=== PATIENT | female | born 1945 | race Caucasian/White ===

== ENCOUNTER → 2018-01-27 13:56 | Outpatient (CLI) | payer MEDICARE, OTHER, SELFPAY ==
--- NOTE | 2018-01-27 | DI.RAD.S_ITS ---
PROCEDURE: XR CHEST 2V INDICATIONS: ACUTE BRONCHITIS TECHNIQUE: 2 views of the chest were acquired. COMPARISON: [facility], CHEST 1 VIEW, 12/10/2010, 11:22. [facility], CHEST 2 VIEW, 12/10/2010, 12:08. FINDINGS: Surgical changes and devices: None. Lungs and pleura: No pleural effusions or pneumothorax. Lungs are clear. Mediastinum: The cardiac contours are within normal limits. The aorta demonstrates calcification and tortuosity. Bones and chest wall: Age-appropriate bony degenerative changes are seen. No suspicious bony abnormalities. Soft tissues appear unremarkable. IMPRESSION: No focal infiltrates are seen. Dictated by: Naeem Boyer M.D. on 01/27/2018 at 13:55 Approved by: Naeem Boyer M.D. on 01/27/2018 at 13:55
== END ==
PROVIDERS: PCP Internal Medicine; Visit Provider Internal Medicine
DX: J20.9 Acute bronchitis, unspecified (principal)
CPT/HCPCS: 71046

== ENCOUNTER 2018-04-21 08:49 | Day surgery (SDC) | payer MEDICARE, OTHER, SELFPAY ==
[2018-04-21] VITALS (8 sets, daily range): BP systolic 106–131; BP diastolic 48–66; PULSE 50–60; RESP 10–20; TEMP 36.1–36.7; O2SAT 92–100; BMI 33.6
[2018-04-21] MEDS: SODIUM CHLORIDE 0.9% 1,000 ML 42 ML IV (09:30)
--- NOTE | 2018-04-21 09:45 | PM.HP.1 ---
History of Present Illness Date Patient Seen: 04/14/18 Time Patient Seen: 09:46 Chief complaint: [id number] Narrative: History of adenomatous colon polyps Patient History Medical History Hypertension (Acute) Family & Social History Social History: household members spouse Meds Home Medications Medication Instructions Recorded Confirmed Type ASPIRIN (#ECOTRIN ADULT LOW 81 mg PO QDAY #0 12/10/10 04/21/18 History STRENGTH) CHOLECALCIFEROL (VITAMIN D3) 3,000 u PO QDAY #0 12/10/10 History (Vitamin D) losartan-hydrochlorothiazide #0 12/10/10 History [Hyzaar] Allergies Allergy/AdvReac Type Severity Reaction Status Date / Time Penicillins [PENICILLINS] Allergy Severe family Verified 04/21/18 09:11 history of severe reactions epinephrine [EPINEPHRINE] Allergy Unknown heart Verified 04/21/18 09:11 races, anxiety Exam Vital Signs (past 8 hours): - 04/21/18 09:14 Temperature 97.1 F L Pulse Rate 60 Respiratory Rate 16 Blood Pressure 131/66 Pulse Oximetry 97 Oxygen Delivery Method Room Air Narrative Exam Narrative: Oropharynx free of lesions Chest clear to auscultation percussion Cardiac exam reveals no S3 or murmur Assessment & Plan Plan: Assessment/Plan Narrative: History of adenomatous colon polyps. Need for follow-up colonoscopy. Risks, benefits, alternatives have been explained.
--- NOTE | 2018-04-21 09:47 | PM.OP.ENDO ---
Operative Date/Time/Diagnoses Date of procedure: 04/21/18 Time of procedure: 09:47 Pre-op diagnosis: See indication and findings Procedure & Clinicians Study performed: Colonoscopy Same procedure as scheduled: Yes Indications: History of adenomatous colon polyps Surgeon: Ruby Garcia Procedure Notes Procedure in detail: After informed consent was obtained the patient was placed in the left lateral decubitus position. The video colonoscope was introduced in the rectum and slowly advanced to the cecum. On slow withdrawal mucosa was carefully examined. Preparation was good. The scope was removed. The patient tolerated the procedure well. Blood loss none Complications none Sedation Total sedation time 40 min Versed 8 mg fentanyl 200 mcg IV titration Findings 1. Extremely tortuous colon 2. Otherwise completely normal colonoscopy to cecum Patient will need follow-up colonoscopy in 5 years. I would suggest that it be done with anesthesia assistance next time. Cc: Dr. Anna seymour
[2018-04-21] MEDS: MIDAZOLAM 5 MG/5 ML VIAL IV (10:49)
[2018-04-21] MEDS: fentaNYL 250 MCG/5 ML INJ IV (10:51)
== END 2018-04-21 11:40 | disposition home or self-care (01) ==
PROVIDERS: PCP Internal Medicine; Visit Provider Internal Medicine Gastroenterology
PROC: 0DJD8ZZ Inspection of Lower Intestinal Tract, Via Natural or Artificial Opening Endoscopic (ICD-10-PCS; CPT 45378; principal; 2018-04-21 10:30)
DX: Z86.010 Personal history of colon polyps (principal); I10 Essential (primary) hypertension
CPT/HCPCS: G0105; J2250; J3010

== ENCOUNTER → 2018-06-28 07:46 | Outpatient (CLI) | payer MEDICARE, OTHER, SELFPAY ==
--- NOTE | 2018-06-28 | DI.MG.S_ITS ---
BILATERAL DIGITAL SCREENING MAMMOGRAM 3D/2D WITH CAD: 06/28/2018 CLINICAL: Routine screening. Comparison is made to exams dated: 04/02/2017 mammogram, 02/19/2016 mammogram, 02/16/2015 mammogram, and 02/15/2014 mammogram - [facility]. The tissue of both breasts is extremely dense, which lowers the sensitivity of mammography. Current study was also evaluated with a Computer Aided Detection (CAD) system. There are benign post operative findings in both breasts. No significant masses, calcifications, or other findings are seen in either breast. There has been no significant interval change. IMPRESSION: There is no mammographic evidence of malignancy. A 1 year screening mammogram is recommended. This exam was interpreted at Station ID: [id number]. NOTE: For mammograms, a report in lay terms will be sent to the patient. Approximately 15% of breast malignancies will not be visualized mammographically. In the management of a palpable breast mass, a negative mammogram must not discourage biopsy of a clinically suspicious lesion. Electronically Signed By: Ciaran pina/janna:06/28/2018 17:03:52 letter sent: Normal Exam ACR BI-RADS Category 2: Benign Finding(s) 3342F
== END ==
PROVIDERS: PCP Internal Medicine; Visit Provider Internal Medicine
DX: Z12.31 Encounter for screening mammogram for malignant neoplasm of breast (principal)
CPT/HCPCS: 77063; 77067

== ENCOUNTER → 2019-05-11 15:05 | Outpatient (ROUT) | payer MEDICARE, OTHER, SELFPAY ==
[2019-05-11 15:30] LABS: Add Manual Diff / Slide Review NO; Basophils Absolute Auto 200 /uL (0-100); Eosinophils Absolute Auto 200 /uL (0-450); Eosinophils Percent Auto 1.4 % (2-4); Hematocrit 35.3 % (36-46); Hemoglobin 11.3 g/dL (12.0-16.0); Lymphocytes Absolute Auto 8700 /uL (1100-4500); Lymphocytes Percent Auto 53.8 % (25-40); Mean Corpuscular HGB Conc 32.1 % (30-36); Mean Corpuscular Hemoglobin 23.1 PG (26-34); Mean Corpuscular Volume 72.1 fL (80-100); Monocytes Absolute Auto 600 /uL (0-900); Monocytes Percent Auto 3.6 % (3-14); Neutrophils Absolute Auto 6500 /uL (1500-7000); Neutrophils Percent Auto 40.2 % (50-75); Platelet Count 273 X10^3/uL (150-400); Red Cell Distribution Width 15.1 % (11.6-14.8); White Blood Cell Count 16.2 X10^3/uL (4.5-11.0)
[2019-05-11 15:59] LABS: Aspartate Aminotransferase 27 IU/L (14-36); BUN Creatinine Ratio 23.8 (6-22); Blood Urea Nitrogen 19 mg/dL (7-17); Carbon Dioxide 27 mmol/L (22-32); Chloride 100 mmol/L (98-107); Cholesterol 219 mg/dL (140-199); Estimated Glomerular Filt Rate > 60.0 mL/min (>60); Glucose 94 mg/dL (80-110); HDL Cholesterol 50 mg/dL (40-60); HEMOLYSIS 37 (0-50); LDL Cholesterol Calculated 133 mg/dL (<100); Potassium 4.1 mmol/L (3.4-5.1); Sodium 137 mmol/L (137-145); Triglycerides 182 mg/dL (35-150)
== END ==
PROVIDERS: PCP Internal Medicine; Visit Provider Internal Medicine
DX: I10 Essential (primary) hypertension (principal); E78.2 Mixed hyperlipidemia; D56.0 Alpha thalassemia
CPT/HCPCS: 80048; 80061; 84450; 85025

== ENCOUNTER → 2020-02-15 11:31 | Outpatient (CLI) | payer MEDICARE, OTHER, SELFPAY ==
--- NOTE | 2020-02-15 | DI.MG.S_ITS ---
BILATERAL DIGITAL SCREENING MAMMOGRAM 3D/2D WITH CAD: 02/15/2020 CLINICAL: Routine screening. Family history of breast cancer. Comparison is made to exams dated: 06/28/2018 mammogram - [facility], 04/02/2017 mammogram, and 02/19/2016 mammogram - [facility]. The tissue of both breasts is extremely dense, which lowers the sensitivity of mammography. Current study was also evaluated with a Computer Aided Detection (CAD) system. There is architectural distortion and a post-surgical scar in the right breast at 11 o'clock middle depth. There is a questionable mass in the operative bed on the lateral view. No other significant masses, calcifications, or other findings are seen in either breast. IMPRESSION: INCOMPLETE: NEEDS ADDITIONAL IMAGING EVALUATION The mass in the right breast is indeterminate. Additional views with possible ultrasound are recommended. This exam was interpreted at Station ID: [id number]. NOTE: For mammograms, a report in lay terms will be sent to the patient. Approximately 15% of breast malignancies will not be visualized mammographically. In the management of a palpable breast mass, a negative mammogram must not discourage biopsy of a clinically suspicious lesion. Electronically Signed By: Lis baker/:02/15/2020 13:50:01 letter sent: Additional Imaging Needed ACR BI-RADS Category 0: Incomplete [id number]
== END ==
PROVIDERS: PCP Internal Medicine; Referring Provider Internal Medicine; Visit Provider Internal Medicine
DX: Z12.31 Encounter for screening mammogram for malignant neoplasm of breast (principal); Z80.3 Family history of malignant neoplasm of breast
CPT/HCPCS: 77063; 77067

== ENCOUNTER → 2020-03-08 08:19 | Outpatient (CLI) | payer MEDICARE, OTHER, SELFPAY ==
--- NOTE | 2020-03-08 | DI.MG.S_ITS ---
UNILATERAL RIGHT DIGITAL DIAGNOSTIC MAMMOGRAM 3D/2D WITH ADDITIONAL VIEWS: 03/08/2020 CLINICAL: Additional evaluation requested from prior study. Comparison is made to exams dated: 02/15/2020 mammogram, 06/28/2018 mammogram - [facility], and 04/02/2017 mammogram - [facility]. The tissue of right breast is extremely dense, which lowers the sensitivity of mammography. There is a 1.1 cm x 1.8 cm irregular mass with a spiculated margin in the right breast at 11 o'clock middle depth. This is seen in additional views. There is architectural distortion and a post-surgical scar associated with the mass. No other significant masses or calcifications are seen in the breast. IMPRESSION: INCOMPLETE: NEEDS ADDITIONAL IMAGING EVALUATION The 1.1 cm x 1.8 cm irregular mass in the right breast is indeterminate. An ultrasound is recommended. US will be performed and dictated separately. This exam was interpreted at Station ID: [id number]. NOTE: For mammograms, a report in lay terms will be sent to the patient. Approximately 15% of breast malignancies will not be visualized mammographically. In the management of a palpable breast mass, a negative mammogram must not discourage biopsy of a clinically suspicious lesion. Electronically Signed By: Jasper Vargas acr/:03/08/2020 09:13:23 ACR BI-RADS Category 0: Incomplete [id number]
--- NOTE | 2020-03-08 09:42 | DI.US.S_ITS ---
Patient Name: MONICA LEVINE date: 1945 Sex: F Attending Physician: Verena Indications: Date: 03/08/2020 09:40 At the request of: JENIFFER GRIFFITHS Procedure: US breast RT limited ULTRASOUND OF RIGHT BREAST: 03/08/2020 CLINICAL: Patient returns today to evaluate a focal asymmetry in the right breast. Comparison is made to exams dated: 02/15/2020 mammogram, 03/08/2020 mammogram, 06/28/2018 mammogram - [facility], 04/02/2017 mammogram, 02/19/2016 mammogram, and 02/16/2015 mammogram - [facility]. Color flow and Doppler ultrasound of the right breast were performed. There is a 1.3 cm mass with a spiculated margin in the right breast at 3 o'clock posterior depth 7 cm from the nipple. This mass displays posterior acoustic shadowing. IMPRESSION: HIGHLY SUGGESTIVE OF MALIGNANCY The 1.3 cm mass in the right breast is highly suggestive of malignancy. Recommend US guided biopsy This exam was interpreted at Station ID: [id number]. Electronically Signed By: Jasper Vargas acr/:03/09/2020 08:48:25 letter sent: Biopsy Required Ultrasound BI-RADS: 5 Highly suggestive of malignancy
== END ==
PROVIDERS: PCP Internal Medicine; Referring Provider Internal Medicine; Visit Provider Internal Medicine
DX: R92.8 Other abnormal and inconclusive findings on diagnostic imaging of breast (principal); N63.11 Unspecified lump in the right breast, upper outer quadrant
CPT/HCPCS: 76642; 77065; G0279

== ENCOUNTER → 2020-03-23 13:03 | Outpatient (CLI) | payer MEDICARE, OTHER, SELFPAY ==
--- NOTE | 2020-03-23 | DI.MG.S_ITS ---
UNILATERAL RIGHT DIGITAL DIAGNOSTIC MAMMOGRAM POST-NEEDLE BIOPSY: 03/23/2020 CLINICAL: Abnormal Mammogram. Comparison is made to exams dated: 03/08/2020 mammogram, 02/15/2020 mammogram, and 06/28/2018 mammogram - [facility]. The tissue of right breast is extremely dense, which lowers the sensitivity of mammography. There is a biopsy clip at the biopsy site in the right breast. IMPRESSION: The biopsy clip is at the biopsy site in the right breast. This exam was interpreted at Station ID: [id number]. NOTE: For mammograms, a report in lay terms will be sent to the patient. Approximately 15% of breast malignancies will not be visualized mammographically. In the management of a palpable breast mass, a negative mammogram must not discourage biopsy of a clinically suspicious lesion. Electronically Signed By: Jeanne Reyes M.D. fx/:03/23/2020 14:30:55 ACR BI-RADS Category n/a
--- NOTE | 2020-03-23 | PATH_ITS ---
[facility] Accession Number: [id number] . 01 Material submitted: . breast - RIGHT BREAST MASS . 01 Diagnosis: Right Breast Mass, Partial Mastectomy: Fibrocystic changes including focal usual duct hyperplasia, duct dilation and stromal sclerosis. No evidence of atypical duct hyperplasia, in-situ and invasive carcinoma. [facility] 03/29/2020 1648 Local . 01 Comment: As part of ongoing supplier quality specialist, this case is also reviewed by Dr. Myrtle Gillis, who concurs with the given interpretation. . 01 Electronically signed: . Jordyn Aguilar MD, Pathologist NPI- [id number] . 01 Gross description: . Received in formalin, labeled with the patient's name, are multiple pieces of lora adipose tissue ranging in size from 2.0 x 0.3 x 0.3 cm to 0.3 x 0.3 x 0.2 cm. All tissue is entirely submitted in cassette A1. Collection date and time are listed as 03/23/20 at 14:24, for a total fixation time after processing of approximately 30 hours. ([id number]) /FRR 03/24/2020 1533 Local . 01 Microscopic: . A focus of mildly atypical glands is identified. This focus is evaluated by immunostains. A p63 and a myosin immunostain is performed which highlights the myoepithelial cell layer around the glands of interest and hence support the benign nature of the glands. Control stained appropriately. . * This test was developed and its performance characteristics determined by [employer]. It has not been cleared or approved by the U.S. Food and Drug Administration. The FDA has determined that such clearance or approval is not necessary. This test is used for clinical purposes. It should not be regarded as investigational or for research. . 01 Pathologist provided ICD-10: N63.10, N60.91 . 01 CPT . 381910, U87883, H39768 Performed at: [address] [facility] [address], [place], [place] [id number] MD Haim Michele MD Phone: [phone]
--- NOTE | 2020-03-23 | DI.US.S_ITS ---
ULTRASOUND GUIDED BIOPSY RIGHT BREAST USING VACUUM DEVICE WITH POST MAMMOGRAPHIC AND ULTRASOUND IMAGIN03/23/2020 PATIENT CONSENT: Risks (minor bleeding, infection, vasovagal reaction and repeat procedure), benefits and alternatives were explained to the patient and written informed consent was obtained. Correlation is made to exams dated: 03/08/2020 ultrasound, 03/08/2020 mammogram, 02/15/2020 mammogram, 06/28/2018 mammogram - [facility], and 04/02/2017 mammogram - [facility]. An ultrasound guided biopsy using real-time ultrasound was performed for the oval mass located in the right breast at 11 o'clock middle depth. This was described on the previous ultrasound report. The skin was prepped in the usual manner. Local anesthetic was administered to the access site. The abnormality was approached from the lateral aspect. A 13 gauge biopsy needle was placed adjacent to the abnormality under ultrasound guidance. Once the needle was documented to be in the correct location, six specimens were obtained using the Mammotome biopsy system. Post procedure mammographic and ultrasound imaging demonstrates the clip at the targeted area. The specimens were sent to the laboratory for pathological analysis. IMPRESSION: ULTRASOUND GUIDED BIOPSY BENIGN Ultrasound guided biopsy of the mass in the right breast middle depth was successful. Pathology indicates benign fibrocystic changes (FC). Pathology results are discordant with ultrasound findings. A repeat ultrasound guided biopsy is recommended. This exam was interpreted at Station ID: [id number]. Jeanne brady,ddp/:04/03/2020 17:17:48
== END ==
PROVIDERS: PCP Internal Medicine; Referring Provider Internal Medicine; Visit Provider Internal Medicine
DX: N63.11 Unspecified lump in the right breast, upper outer quadrant (principal); N60.11 Diffuse cystic mastopathy of right breast; N60.41 Mammary duct ectasia of right breast
CPT/HCPCS: 19083; 77065

== ENCOUNTER 2020-06-04 16:44 | Emergency (ER) | payer MEDICARE, OTHER, SELFPAY ==
[2020-06-04] VITALS (8 sets, daily range): BP systolic 91–140; BP diastolic 52–67; PULSE 67–79; RESP 12–25; TEMP 37.1; O2SAT 91–97
--- NOTE | 2020-06-04 17:14 | DI.RAD.S_ITS ---
PROCEDURE: XR CHEST 1V INDICATIONS: suspected sepsis TECHNIQUE: One view of the chest was acquired. COMPARISON: Located [facility], CR, XR CHEST 2V, 01/27/2018, 13:44. FINDINGS: Surgical changes and devices: None. Lungs and pleura: Lungs are clear. No pleural effusions or pneumothorax. Mediastinum: Mediastinal contours appear normal. Heart size is normal. Bones and chest wall: No suspicious bony lesions. Overlying soft tissues appear unremarkable. IMPRESSION: No evidence acute pulmonary process. Dictated by: Alden Son M.D. on 06/04/2020 at 17:40 Approved by: Alden Son M.D. on 06/04/2020 at 17:40
[2020-06-04 17:39] LABS: Hematocrit 32.9 % (36-46); Hemoglobin 10.4 g/dL (12.0-16.0); Mean Corpuscular HGB Conc 31.6 % (30-36); Mean Corpuscular Hemoglobin 22.9 PG (26-34); Mean Corpuscular Volume 72.5 fL (80-100); Platelet Count 281 X10^3/uL (150-400); Red Blood Cell Count 4.55 X10^6/uL (4.0-5.2)
[2020-06-04 17:41] LABS: Add Manual Diff / Slide Review YES
[2020-06-04 17:42] LABS: White Blood Cell Count 32.9 X10^3/uL (4.5-11.0)
[2020-06-04 17:48] LABS: PTT Partial Thromboplastin Tim 31 SECONDS (26.4-36.2)
[2020-06-04 17:51] LABS: Lactate (Lactic Acid) 1.1 mmol/L (0.7-2.1)
[2020-06-04 17:55] LABS: Alanine Aminotransferase 16 IU/L (<35); Albumin 4.1 g/dL (3.5-5.0); Albumin Globulin Ratio 1.6 (1.0-2.8); Alkaline Phosphatase 122 U/L (38-126); Aspartate Aminotransferase 23 IU/L (14-36); BUN Creatinine Ratio 23.8 (6-22); Bilirubin Total 0.8 mg/dL (0.2-1.3); Blood Urea Nitrogen 19 mg/dL (7-17); Calcium 9.4 mg/dL (8.4-10.2); Carbon Dioxide 29 mmol/L (22-32); Chloride 101 mmol/L (98-107); Estimated Glomerular Filt Rate > 60.0 mL/min (>60); Globulin 2.6 g/dL (1.7-4.1); Glucose 110 mg/dL (80-110); HEMOLYSIS < 15 (0-50); Lipase 57 U/L (23-300); Potassium 3.5 mmol/L (3.4-5.1); Sodium 135 mmol/L (137-145); Total Protein 6.7 g/dL (6.3-8.2)
[2020-06-04] MEDS: SODIUM CHLORIDE 0.9% 1,000 ML 1000 ML IV (18:10)
--- NOTE | 2020-06-04 18:10 | ED.FEVER ---
HPI - Fever General Chief Complaint: Fever Stated Complaint: Breast Surgery, Swelling On Right Arm, Fever Time Seen by Provider: 06/04/20 18:10 Source: patient and family () Mode of arrival: Ambulatory Limitations: no limitations History of Present Illness HPI Narrative: This is a 75-year-old female comes emergency department a week status post lumpectomy for breast cancer and sentinel node biopsy her right breast at [facility]. Patient states she was doing well until yesterday. She started feeling chilled and feverish overnight. She had sweats overnight and developed pain in her right upper extremity. She describes the area the lower humerus adjacent to the elbow. She describes some redness. She has full range of motion with the elbow but has pain if she touches that area. Patient states she has had a little tingling in her fingers. She states she has had ibuprofen this morning as well as 1:00 p.m. today, she had temperature of a 100.2F. She has had a mild headache, she denies neck pain. She states her incisions team to be healing well she has not appreciate any drainage or foul odor. Patient denies any other new chest pain or pressure. No shortness of breath she denies any nausea, no vomiting, no urinary frequency, dysuria or urgency, no diarrhea constipation. She denies any abdominal pain. Patient states that she takes a single medication for hypertension. She states in the past she has had a total abdominal hysterectomy with bilateral salpingo oophorectomy secondary to suspected cancer although pathology at that time was negative. She is accompanied by her . Related Data Home Medications Medication Instructions Recorded Confirmed ASPIRIN (#ECOTRIN ADULT LOW 81 mg PO QDAY #0 12/10/10 04/17/20 STRENGTH) CHOLECALCIFEROL (VITAMIN D3) 3,000 u PO QDAY #0 12/10/10 04/17/20 (Vitamin D) losartan-hydrochlorothiazide #0 12/10/10 04/17/20 [Hyzaar] ibuprofen 06/04/20 Previous Rx's Medication Instructions Recorded cephalexin [Keflex] 500 mg PO QID #40 cap 06/04/20 Allergies Allergy/AdvReac Type Severity Reaction Status Date / Time latex Allergy Mild Rash Verified 06/04/20 17:05 Penicillins [PENICILLINS] AdvReac Severe family Verified 06/04/20 17:05 history of severe reactions epinephrine [EPINEPHRINE] AdvReac Unknown heart Verified 06/04/20 17:05 races, anxiety Review of Systems Review of Systems ROS Unobtainable: All systems reviewed & are unremarkable except as noted in HPI and below Patient History Medical History Anemia Hypertension Surgical History H/O lumpectomy Family History Mother Hypertension Heart disease Cancer Diabetes mellitus Father Hypertension Sister Cancer Social History household members: spouse Smoking Status: Never smoker Smoking Status: Never smoker alcohol intake frequency: holidays/special occasions only Substance Use Type: does not use Exam Narrative Exam Narrative: GENERAL: Alert and oriented x three, well-nourished female in mild distress. HEENT: Head normocephalic, atraumatic, EOMI, pupils reactive, face symmetric, moist mucous membranes NECK: Supple, full range of motion CARDIOVASCULAR: Regular rate and rhythm without murmurs, rubs or gallops. RESPIRATORY: Breath sounds equal bilaterally, no wheezes rales or rhonchi. ABDOMEN: Soft, nontender. Normoactive bowel sounds all 4 quadrants. No guarding or rebound, rigidity, no mass : No CVA tenderness EXTREMITIES: Normal range of motion, no clubbing, mild edema rate appears to be left. 2+ radial pulse. Full range of motion. Patient is mildly tender on her proximal humerus on the extensor side. I do not appreciate any significant erythema although there may be some mildly present. Neurovascularly intact. NEUROLOGICAL: Cranial nerves II through XII grossly intact. Moving all extremities SKIN: Warm, dry, no petechiae, no rashes or lesions. Patient has incision on her right breast at the 7 o'clock position which looks clean dry and intact and healing well, she also has an incision in her right axilla which is may also clean dry and intact with some mild swelling but no erythema or other skin changes noted. Initial Vital Signs Initial Vital Signs: Vital Signs Temperature 98.8 F 06/04/20 17:00 Pulse Rate 79 06/04/20 17:00 Respiratory Rate 16 06/04/20 17:00 Blood Pressure 140/67 06/04/20 17:00 Pulse Oximetry 96 06/04/20 17:00 Scores qSOFA Altered Mental Status (GCS <15): No Respiratory rate greater than/equal to 22: No Systolic blood pressure less than or equal to 100: No qSOFA Total: 0 0-1 Not High Risk 1-3 High risk Course Orders Ordered: ED Orders 06/04/20 19:30 Urinalysis and Microscopic Stat 06/04/20 19:47 CT angio chest PE protocol Stat Discontinued Medications Cefazolin Sodium (Cephalexin 250 Mg Prepack) 1 bottle MISC SEEINSTR ONE Stop: 06/04/20 23:15 Last Admin: 06/04/20 23:26 Dose: 1 bottle Documented by: FELIPE Sodium Chloride (Normal Saline 0.9%) 1,000 mls @ 1,000 mls/hr IV BOLUS ONE Stop: 06/04/20 18:12 Last Infusion: 06/04/20 19:37 Dose: 0 mls/hr Documented by: Admin: 06/04/20 18:10 Dose: 1,000 mls/hr Documented by: BROOKLYNN Vancomycin HCl/Dextrose (Vancomycin) 1,500 mg in 300 mls @ 200 mls/hr IV NOW ONE Stop: 06/04/20 19:57 Last Infusion: 06/04/20 22:00 Dose: 0 mls/hr Documented by: Admin: 06/04/20 19:22 Dose: 200 mls/hr Documented by: ALIYAH Esqueda Consultation #1: Dr. Walters. Follow up tomorrow at noon for recheck. Pathology pending but should be finalized in the morning. Surgeon suspect this may be related. Plan for keflex 500mg po QID with office visit tomorrow around noon. They will reach out to the patient. If appears septic or worsening recontact. Time: 23:03 Vital Signs Vital signs: Vital Signs - 8 hr 06/04/20 20:00 06/04/20 20:30 06/04/20 20:37 Pulse Rate 71 70 67 Respiratory Rate 23 25 H 12 Blood Pressure 122/55 L 91/52 L Pulse Oximetry 96 95 91 06/04/20 22:52 06/04/20 22:56 06/04/20 23:00 Pulse Rate 71 71 69 Respiratory Rate 24 25 H 24 Blood Pressure 120/59 L 122/60 Pulse Oximetry 91 93 92 MDM - Fever Lab Data Attestation: I reviewed the patient's lab results. Result diagrams: 06/04/20 17:28 06/04/20 17:28 Labs: Lab Results 06/04/20 06/04/20 06/04/20 Range/Units 17:28 17:28 17:28 WBC 32.9 H* (4.5-11.0) X10^3/uL RBC 4.55 (4.0-5.2) X10^6/uL Hgb 10.4 L (12.0-16.0) g/dL Hct 32.9 L (36-46) % MCV 72.5 L (80-100) fL MCH 22.9 L (26-34) PG MCHC 31.6 (30-36) % RDW 15.0 H (11.6-14.8) % Plt Count 281 (150-400) X10^3/uL Neut % (Auto) Not Reportable Lymph % (Auto) Not Reportable Beckham % (Auto) Not Reportable Eos % (Auto) Not Reportable Baso % (Auto) Not Reportable Lymph # (Auto) Not Reportable Beckham # (Auto) Not Reportable Baso # (Auto) Not Reportable Total Counted 100 Seg Neutrophils % 61.0 (38-70) % Band Neutrophils % 3.0 (3-7) % Lymphocytes % (Manual) 32.0 (25-45) % Monocytes % (Manual) 4.0 (2-11) % Neutrophils # (Manual) 44832 H (0234-5369) /uL RBC Morphology Not Reportable Hypochromasia 1+ H Microcytosis 1+ H PT 12.0 (10.1-12.7) SECONDS INR 1.0 (0.9-1.3) APTT 31 (26.4-36.2) SECONDS Sodium 135 L (137-145) mmol/L Potassium 3.5 (3.4-5.1) mmol/L Chloride 101 (98-107) mmol/L Carbon Dioxide 29 (22-32) mmol/L BUN 19 H (7-17) mg/dL Creatinine 0.80 (0.52-1.04) mg/dL Estimated GFR > 60.0 (>60) mL/min BUN/Creatinine Ratio 23.8 H (6-22) Glucose 110 (80-110) mg/dL Lactate (0.7-2.1) mmol/L Calcium 9.4 (8.4-10.2) mg/dL Total Bilirubin 0.8 (0.2-1.3) mg/dL AST 23 (14-36) IU/L ALT 16 (<35) IU/L Alkaline Phosphatase 122 (38-126) U/L Total Protein 6.7 (6.3-8.2) g/dL Albumin 4.1 (3.5-5.0) g/dL Globulin 2.6 (1.7-4.1) g/dL Albumin/Globulin Ratio 1.6 (1.0-2.8) Lipase 57 (23-300) U/L Procalcitonin 0.10 (<0.5) ng/mL Urine Color Urine Appearance Urine pH (4.5-8.0) Ur Specific [place] (1.000-1.035) Urine Protein (Negative) Urine Glucose (UA) (Negative) g/dL Urine Ketones (NEGATIVE) Urine Occult Blood (Negative) Urine Nitrate (Negative) Urine Bilirubin (NEGATIVE) Urine Urobilinogen (0.2) E.U./dL Ur Leukocyte Esterase (NEGATIVE) Urine RBC (0-5/HPF) Urine WBC (0-5/HPF) Ur Squamous Epith Cells (0-5/HPF) Urine Bacteria (None) Ur Culture Indicated? SARS-CoV-2 (PCR) (Negative) 06/04/20 06/04/20 06/04/20 Range/Units 17:28 18:00 19:30 WBC (4.5-11.0) X10^3/uL RBC (4.0-5.2) X10^6/uL Hgb (12.0-16.0) g/dL Hct (36-46) % MCV (80-100) fL MCH (26-34) PG MCHC (30-36) % RDW (11.6-14.8) % Plt Count (150-400) X10^3/uL Neut % (Auto) Lymph % (Auto) Beckham % (Auto) Eos % (Auto) Baso % (Auto) Lymph # (Auto) Beckham # (Auto) Baso # (Auto) Total Counted Seg Neutrophils % (38-70) % Band Neutrophils % (3-7) % Lymphocytes % (Manual) (25-45) % Monocytes % (Manual) (2-11) % Neutrophils # (Manual) (0210-0662) /uL RBC Morphology Hypochromasia Microcytosis PT (10.1-12.7) SECONDS INR (0.9-1.3) APTT (26.4-36.2) SECONDS Sodium (137-145) mmol/L Potassium (3.4-5.1) mmol/L Chloride (98-107) mmol/L Carbon Dioxide (22-32) mmol/L BUN (7-17) mg/dL Creatinine (0.52-1.04) mg/dL Estimated GFR (>60) mL/min BUN/Creatinine Ratio (6-22) Glucose (80-110) mg/dL Lactate 1.1 (0.7-2.1) mmol/L Calcium (8.4-10.2) mg/dL Total Bilirubin (0.2-1.3) mg/dL AST (14-36) IU/L ALT (<35) IU/L Alkaline Phosphatase (38-126) U/L Total Protein (6.3-8.2) g/dL Albumin (3.5-5.0) g/dL Globulin (1.7-4.1) g/dL Albumin/Globulin Ratio (1.0-2.8) Lipase (23-300) U/L Procalcitonin (<0.5) ng/mL Urine Color Yellow Urine Appearance Clear Urine pH 5.5 (4.5-8.0) Ur Specific [place] <=1.005 (1.000-1.035) Urine Protein Negative (Negative) Urine Glucose (UA) Negative (Negative) g/dL Urine Ketones Negative (NEGATIVE) Urine Occult Blood Negative (Negative) Urine Nitrate Negative (Negative) Urine Bilirubin Negative (NEGATIVE) Urine Urobilinogen 0.2 (0.2) E.U./dL Ur Leukocyte Esterase Negative (NEGATIVE) Urine RBC 0-1/hpf (0-5/HPF) Urine WBC 0-1/hpf (0-5/HPF) Ur Squamous Epith Cells 0-1 /hpf (0-5/HPF) Urine Bacteria None seen (None) Ur Culture Indicated? Cult not indicated SARS-CoV-2 (PCR) Negative (Negative) Imaging Data Chest x-ray: Attestation: I personally reviewed and interpreted this imaging study as follows: Radiologist's Impression: Coco Melissa F 75 F 1945 [address] [id number] ReportSigned Patient: Coco Melissa R#: [id number]: 1945cct:[id number]/Sex: 75 / FDate of Service: 06/04/20Loc: EDAccession Number: [id number] Procedure: XR chest 1V Ordering Provider: Eugene Osorio D.O. PROCEDURE: XR CHEST 1V INDICATIONS: suspected sepsis TECHNIQUE: One view of the chest was acquired. COMPARISON: [facility] , XR CHEST 2V, 01/27/2018, 13:44. FINDINGS: Surgical changes and devices: None. Lungs and pleura: Lungs are clear. No pleural effusions or pneumothorax. Mediastinum: Mediastinal contours appear normal. Heart size is normal. Bones and chest wall: No suspicious bony lesions. Overlying soft tissues appear unremarkable. IMPRESSION: No evidence acute pulmonary process. Dictated by: Alden Son M.D. on 06/04/2020 at 17:40 Approved by: Alden Son M.D. on 06/04/2020 at 17:40 US - DVT: Radiologist's Impression: [address] [id number] ReportSigned Patient: Coco Melissa R#: [id number]: 1945cct:[id number]/Sex: 75 / FDate of Service: 06/04/20Loc: EDAccession Number: [id number] Procedure: US periph venous up extrem rt Ordering Provider: Minoo Samayoa D.O. PROCEDURE: US PERIPH VENOUS UP EXTREM RT INDICATIONS: swelling, redness, pain, fever, s/p lumpectomy TECHNIQUE: Real-time imaging, as well as color and pulse Doppler interrogation, was performed of the right upper extremity deep veins from the inferior neck to the antecubital fossa. COMPARISON: None. FINDINGS: The internal jugular vein, visualized portions of the subclavian vein, axillary, and brachial veins are free of intraluminal thrombus. Where physically possible, the veins are normally compressible. Color and pulse Doppler demonstrate normal intraluminal flow, with expected phasicity and pulsatility. Additional scanning of the cephalic and basilic veins of the superficial system demonstrate normal compressibility, without thrombus. IMPRESSION: No evidence DVT, right upper extremity. Dictated by: Alden Son M.D. on 06/04/2020 at 19:27 Approved by: Alden Son M.D. on 06/04/2020 at 19:28 ECG Data Attestation: I personally reviewed and interpreted this ECG as follows: Interpretation: Sinus rhythm rate of 76 AR 126 QRS 78 QTC 434. Q-wave in lead 3. No elevation appreciated. Possible motion artifact and lateral leads. Patient has prior EKG from 12/11/2010 appears similar. [facility] Narrative Medical decision making narrative: This is a 75 year old female with and left upper extremity pain 1 week status post lumpectomy and sentinel node biopsy. Patient labs show a significant leukocytosis, she does have a leftward shift. Hemoglobin is slightly decreased from last month at 10.4 prior was 11.3. Chemistry show a mild hyponatremia with sodium 135, BUN is 19, normal with a procalcitonin is 0.10 and a negative lactate. And COVID are negative. Patient's DVT ultrasound is negative and CT angiography of the chest was ordered. No PE, patient does have a hematoma noted at the right breast post right lumpectomy and relatively extensive diffuse right axillary hematoma with associated edema. There are extensive bilateral small shotty axillary lymph nodes. This was discussed with the patient's surgeon, she would like to see patient tomorrow at noon. She suspects that this may be to the patient's current pending pathology which has not had its final results. She will discuss this with the patient tomorrow. At this time plan for Keflex 500 mg q.i.d. and patient is to return if any worsening symptoms. Discharge Plan Departure Patient Disposition: Home Clinical Impression: Seroma after procedure Activity Restrictions/Additional Instructions: Follow up with your surgeon tomorrow, they plan to contact you in the morning to have follow up sometime around noon 06/05/20. Take antibiotics as prescribed. You may take your first dose tonight. Return to the ER for recurrent fevers, lightheadedness, passing out, new chest pain, shortness of breath, worsening swelling of your extremities, tingling, weakness or other new or concerning symptoms. Prescriptions: New cephalexin [Keflex] 500 mg capsule 500 mg PO QID Qty: 40 RF: 0 No Action losartan-hydrochlorothiazide [Hyzaar] 100 MG/12.5 MG tablet Qty: 0 RF: 0 CHOLECALCIFEROL (VITAMIN D3) (Vitamin D) 3,000 u PO QDAY Qty: 0 RF: 0 ASPIRIN (#ECOTRIN ADULT LOW STRENGTH) 81 mg PO QDAY Qty: 0 RF: 0 ibuprofen 400 mg tablet RF: 0 Referrals: Bharat Albarado MD [Primary Care Provider] - Maddy Walters MD [Non-Staff] -
[2020-06-04 18:24] LABS: COVID19 -Nasal RAPID Negative (Negative)
[2020-06-04 18:24] LABS: Neutrophils Absolute Manual 21056 /uL (3000-5900); Total Cells Counted 100
[2020-06-04 18:25] LABS: Hypochromasia 1+; Microcytosis 1+
--- NOTE | 2020-06-04 18:28 | DI.US.S_ITS ---
PROCEDURE: US PERIPH VENOUS UP EXTREM RT INDICATIONS: swelling, redness, pain, fever, s/p lumpectomy TECHNIQUE: Real-time imaging, as well as color and pulse Doppler interrogation, was performed of the right upper extremity deep veins from the inferior neck to the antecubital fossa. COMPARISON: None. FINDINGS: The internal jugular vein, visualized portions of the subclavian vein, axillary, and brachial veins are free of intraluminal thrombus. Where physically possible, the veins are normally compressible. Color and pulse Doppler demonstrate normal intraluminal flow, with expected phasicity and pulsatility. Additional scanning of the cephalic and basilic veins of the superficial system demonstrate normal compressibility, without thrombus. IMPRESSION: No evidence DVT, right upper extremity. Dictated by: Alden Son M.D. on 06/04/2020 at 19:27 Approved by: Alden Son M.D. on 06/04/2020 at 19:28
[2020-06-04] MEDS: VANCOMYCIN 1,500 MG/300 ML PIGGYBACK 200 MG IV (19:22)
[2020-06-04 19:36] LABS: Bacteria Urine None Seen
[2020-06-04 19:37] LABS: Appearance Urine UA CLEAR; Bilirubin Urine UA NEGATIVE (NEGATIVE); Color Urine UA YELLOW; Glucose Urine UA NEGATIVE (Negative); Ketones Urine UA NEGATIVE (NEGATIVE); Leukocyte Esterase Urine UA NEGATIVE (NEGATIVE); Nitrite Urine UA NEGATIVE (Negative); Occult Blood Urine UA NEGATIVE (Negative); Protein Urine UA NEGATIVE (Negative); Specific Gravity Urine UA <=1.005 (1.000-1.035); Urobilinogen Urine UA 0.2 E.U./dL (0.2)
[2020-06-04 19:39] LABS: pH Urine UA 5.5 (4.5-8.0)
--- NOTE | 2020-06-04 19:47 | DI.CT.S_ITS ---
PROCEDURE: CT ANGIO CHEST PE PROTOCOL INDICATIONS: redness, swelling arm, recent lumpectomy, fever TECHNIQUE: After the administration of intravenous contrast, 2 mm thick sections acquired from the pulmonary apices to the posterior costophrenic angles. 3-dimensional maximum intensity projection (MIP) coronal and sagittal reformats were then acquired through the thorax. For radiation dose reduction, the following was used: automated exposure control, adjustment of mA and/or kV according to patient size. COMPARISON: None. FINDINGS: Image quality: Excellent. Pulmonary arteries: Pulmonary arteries are normal in size, and demonstrate no intraluminal filling defects to suggest central pulmonary embolism. Lungs and pleura: Lungs are clear. No pleural effusions or pneumothorax. Central and peripheral airways are patent. Mediastinum: Heart size is normal, without pericardial effusion. No mediastinal or hilar adenopathy. Thoracic aorta is normal in caliber and enhancement. Esophagus is normal in caliber, without hiatal hernia. Bones and chest wall: No suspicious bony lesions. There is a diffuse right axillary hematoma with associated edema. Right breast hematoma measuring approximately 4.5 x 2.6 cm. Ribs and thoracic spine appear intact throughout. Thyroid gland is unremarkable as visualized. No axillary or supraclavicular adenopathy. Extensive small shotty bilateral axillary lymph nodes. Abdomen: Visualized upper abdominal solid organs appear normal in the early arterial phase of enhancement. IMPRESSION: 1. No evidence acute pulmonary emboli. 2. No evidence acute pulmonary process. 3. Right breast hematoma post right lumpectomy. 4. Relatively extensive diffuse right axillary hematoma with associated edema. 4. Extensive bilateral small shotty axillary lymph nodes. Dictated by: Alden Son M.D. on 06/04/2020 at 20:41 Approved by: Alden Son M.D. on 06/04/2020 at 20:46
[2020-06-04 19:53] LABS: Culture Indicated Urine Cult Not Indicated; RBC Urine 0-1/HPF (0-5/HPF); Squamous Epithelial Cell Urine 0-1 /HPF (0-5/HPF); WBC Urine 0-1/HPF (0-5/HPF)
[2020-06-04] MEDS: cephALEXin 250 MG PREPACK 1 BOTTLE MISC (23:26)
--- NOTE | 2020-06-04 23:49 | PC.NURSE ---
Keflex rx called into [facility] in [place]
== END 2020-06-04 23:33 | disposition home or self-care (01) ==
PROVIDERS: Emergency Medicine; Emergency Provider Emergency Medicine; PCP Internal Medicine
DX: M96.843 Postprocedural seroma of a musculoskeletal structure following other procedure (principal); M79.601 Pain in right arm; I10 Essential (primary) hypertension; Z20.822 Contact with and (suspected) exposure to COVID-19
CPT/HCPCS: 36415; 71045; 71275; 80053; 81001; 83605; 83690; 84145; 85007; 85025; 85610; 85730; 87040; 87635; 93005; 93971; 96361; 96365; 96366; 99283; 99284; C9803; Q9967

== ENCOUNTER → 2020-10-24 08:38 | Outpatient (CLI) | payer MEDICARE, OTHER, SELFPAY ==
[2020-10-24 10:48] LABS: Vitamin D 25 Hydroxy (D3) 55.2 ng/mL (30.0-100.0)
== END ==
PROVIDERS: PCP Student in an Organized Health Care Education/Training Program; Referring Provider Student in an Organized Health Care Education/Training Program; Visit Provider Student in an Organized Health Care Education/Training Program
DX: E55.9 Vitamin D deficiency, unspecified (principal); Z79.899 Other long term (current) drug therapy
CPT/HCPCS: 36415; 82306

== ENCOUNTER → 2022-01-21 09:06 | Outpatient (CLI) | payer MEDICARE, OTHER, SELFPAY ==
[2022-01-21 12:53] LABS: Cholesterol 217 mg/dL (140-199); HDL Cholesterol 48 mg/dL (40-60); LDL Cholesterol Calculated 138 mg/dL (<100); Triglycerides 155 mg/dL (35-150)
== END ==
PROVIDERS: PCP Family Medicine; Referring Provider Family Medicine; Visit Provider Family Medicine
DX: E66.9 Obesity, unspecified (principal); C50.919 Malignant neoplasm of unspecified site of unspecified female breast; E55.9 Vitamin D deficiency, unspecified; I10 Essential (primary) hypertension; L40.50 Arthropathic psoriasis, unspecified
CPT/HCPCS: 36415; 80061

== ENCOUNTER → 2022-01-24 | Outpatient (CLI) | payer MEDICARE, OTHER, SELFPAY | PROVIDERS: PCP Family Medicine; Referring Provider Family Medicine; Visit Provider Family Medicine | DX: Z78.0 Asymptomatic menopausal state (principal); Z92.23 Personal history of estrogen therapy; Z90.710 Acquired absence of both cervix and uterus; M85.851 Other specified disorders of bone density and structure, right thigh; M85.852 Other specified disorders of bone density and structure, left thigh | CPT/HCPCS: 77080 ==

== ENCOUNTER → 2022-07-18 08:06 | Outpatient (CLI) | payer MEDICARE, OTHER, SELFPAY ==
[2022-07-18 09:33] LABS: Hematocrit 33.9 % (36-46); Hemoglobin 10.6 g/dL (12.0-16.0); Mean Corpuscular HGB Conc 31.2 % (30-36); Mean Corpuscular Hemoglobin 22.8 PG (26-34); Mean Corpuscular Volume 73.2 fL (80-100); Platelet Count 259 X10^3/uL (150-400); Red Blood Cell Count 4.63 X10^6/uL (4.0-5.2); Red Cell Distribution Width 15.5 % (11.6-14.8)
[2022-07-18 09:34] LABS: Add Manual Diff / Slide Review YES
[2022-07-18 09:37] LABS: White Blood Cell Count 37.6 X10^3/uL (4.5-11.0)
[2022-07-18 09:50] LABS: Alanine Aminotransferase 27 IU/L (<35); Albumin 4.3 g/dL (3.5-5.0); Alkaline Phosphatase 92 U/L (38-126); Aspartate Aminotransferase 28 IU/L (14-36); BUN Creatinine Ratio 25.6 (6-22); Bilirubin Total 0.6 mg/dL (0.2-1.3); Blood Urea Nitrogen 23 mg/dL (7-17); Calcium 9.9 mg/dL (8.4-10.2); Carbon Dioxide 28 mmol/L (22-32); Chloride 99 mmol/L (98-107); Cholesterol 281 mg/dL (140-199); Estimated Glomerular Filt Rate > 60 mL/min (>60); Globulin 2.2 g/dL (1.7-4.1); Glucose 82 mg/dL (80-110); HDL Cholesterol 55 mg/dL (40-60); HEMOLYSIS < 15 (0-50); LDL Cholesterol Calculated 199 mg/dL (<100); Sodium 133 mmol/L (137-145); Total Protein 6.5 g/dL (6.3-8.2); Triglycerides 136 mg/dL (35-150)
[2022-07-18 13:02] LABS: Neutrophils Absolute Manual 3760 /uL (3000-5900); Total Cells Counted 100
[2022-07-18 13:05] LABS: Hypochromasia 2+; Microcytosis 1+; Poikilocytosis 1+; Smudge Cells 1+
== END ==
PROVIDERS: PCP Family Medicine; Referring Provider Family Medicine; Visit Provider Family Medicine
DX: C50.919 Malignant neoplasm of unspecified site of unspecified female breast (principal); E66.9 Obesity, unspecified; I10 Essential (primary) hypertension; L40.50 Arthropathic psoriasis, unspecified
CPT/HCPCS: 36415; 80053; 80061; 85007; 85025

== ENCOUNTER 2022-09-09 11:58 | Emergency (ER) | payer MEDICARE, OTHER, SELFPAY ==
[2022-09-09 12:06] VITALS: BP 140/67; PULSE 75; RESP 14; TEMP 36.4; O2SAT 97; BMI 29.9
--- NOTE | 2022-09-09 12:11 | DI.RAD.S_ITS ---
PROCEDURE: XR CHEST 1V INDICATIONS: Possible stroke TECHNIQUE: One view of the chest was acquired. COMPARISON: [facility], CR, XR CHEST 1V, 06/04/2020, 17:18. FINDINGS: Surgical changes and devices: None. Lungs and pleura: Lungs are clear. No pleural effusions or pneumothorax. Mediastinum: Mediastinal contours appear normal. Heart size is normal. Bones and chest wall: No suspicious bony lesions. Overlying soft tissues appear unremarkable. IMPRESSION: No acute cardiopulmonary disease process. Dictated by: Lyn Hollis MD, PhD on 09/09/2022 at 13:00 Approved by: Lyn Hollis MD, PhD on 09/09/2022 at 13:00
--- NOTE | 2022-09-09 12:35 | ED_ITS ---
HPI - Neuro Symptoms/Deficit General Chief Complaint: Neuro Symptoms/Deficit Stated Complaint: thinks she had a stroke Time Seen by Provider: 09/09/22 12:29 Source: patient Mode of arrival: Ambulatory History of Present Illness HPI Narrative: Patient is a 77-year-old female history of SLL, metastatic breast cancer now in remission, presents today 3 days after a syncopal episode. She reports that she and her were camping she was in the camper trying to pull it off she reports that it was not too hot but starting to get 1 she was having some minor back pain reached up to the event to open up the ceiling when she suddenly p assed out. She has no atrial from the fall she had a brief loss of consciousness she is had not had any nausea vomiting numbness tingling weakness. She was encouraged by all the family to come and get evaluated. She recently had a family member from an intracranial hemorrhage. On Anticoagulants: Yes (ASA 81 mg daily) Related Data Home Medications Medication Instructions Recorded Confirmed ASPIRIN (#ECOTRIN ADULT LOW 81 mg PO QDAY ##0 12/10/10 01/21/22 STRENGTH) CHOLECALCIFEROL (VITAMIN D3) 4,000 unit PO QDAY ##0 07/03/20 01/21/22 (Vitamin D) CBD Oil PO 12/26/20 01/21/22 ascorbate calcium (vitamin C) PO 12/26/20 01/21/22 letrozole 2.5 mg tablet 2.5 mg PO DAILY 12/26/20 01/21/22 mecobalamin (vitamin B12) PO 12/26/20 01/21/22 melatonin PO 12/26/20 01/21/22 zinc acetate PO 12/26/20 01/21/22 nystatin 100,000 unit/gram topical 1 applic topical BID 09/17/21 01/21/22 ointment Previous Rx's Medication Instructions Recorded ondansetron HCl 4 mg tablet 4 mg PO Q8H PRN nausea and 05/15/21 vomiting #30 tabs losartan 50 mg-hydrochlorothiazide 1 tab PO DAILY #90 tabs 03/11/22 12.5 mg tablet Allergies Allergy/AdvReac Type Severity Reaction Status Date / Time latex Allergy Mild Rash Verified 09/09/22 12:10 Penicillins [PENICILLINS] AdvReac Severe family Verified 09/09/22 12:10 history of severe reactions epinephrine [EPINEPHRINE] AdvReac Unknown heart Verified 09/09/22 12:10 races, anxiety Review of Systems Review of Systems ROS Unobtainable: All systems reviewed & are unremarkable except as noted in HPI and below Hematologic/Lymphatic On Anticoagulants: Yes (ASA 81 mg daily) Patient History Medical History Anemia Axillary lymphadenopathy Breast cancer Breast mass, right Diarrhea Family history of malignant neoplasm of breast in first degree relative Hypertension Psoriatic arthritis Surgical History H/O lumpectomy History of hysterectomy History of lumpectomy of both breasts History of salpingo-oophorectomy Family History Mother Hypertension Heart disease Cancer Diabetes mellitus Father Hypertension Sister Cancer Social History household members: spouse Smoking Status: Former smoker Tobacco: How many years used: 20 alcohol intake: current (1 glass of wine/ 3 months ) substance use type: does not use Smoking Status: Former smoker alcohol intake frequency: holidays/special occasions only Substance Use Type: does not use Exam Initial Vital Signs Initial Vital Signs: Vital Signs Temperature 97.5 F L 09/09/22 12:06 Pulse Rate 75 09/09/22 12:06 Respiratory Rate 14 09/09/22 12:06 Blood Pressure 140/67 09/09/22 12:06 Pulse Oximetry 97 09/09/22 12:06 Oxygen Delivery Method Room Air 09/09/22 12:06 GENERAL: Alert pleasant well-appearing 77-year-old female HEENT: Head atraumatic,EOMI, pupils reactive, face symmetric, [moist] mucous membranes CARDIOVASCULAR: Regular rate and rhythm without murmurs, rubs or gallops. RESPIRATORY: Breath sounds equal bilaterally, no wheezes rales or rhonchi. ABDOMEN: Soft, nontender. Normoactive bowel sounds all 4 quadrants. No guarding or rebound. EXTREMITIES: Normal range of motion, no clubbing or edema. Neurovascularly intact NEUROLOGICAL: Alert and oriented x4.Normal gait and speech. Cranial nerves II through XII grossly intact. [Good txublz-md-fwla, good hggs-ii-wpjb, strength equal bilaterally, no dysarthria or aphasia, sensation in tact to soft touch bilaterally, no visual changes, no facial droop] SKIN: Warm, dry, no laceration, no petechiae, no rashes or lesions. Scores NIH Stroke Scale Level of Conciousness: Alert, keenly responsive Ask month/age: Answers both questions correctly. Open/close eyes, close hand: Performs both tasks correctly Best gaze horizontal: Normal Visual michael: No visual loss Facial palsy: Normal symetrical movement Left arm drift: No drift for full 10 sec Right arm drift: No drift for full 10 sec Left leg drift: No drift for full 5 sec Right leg drift: No drift for full 5 sec Limb ataxia: Absent Sensory on face/arms/legs: Normal, no sensory loss Best language: No aphasia, normal Dysarthria: Normal Extinction or inattention: No abnormality Total NIH Stroke scale score: 0 Course Orders Ordered: ED Orders 09/09/22 12:11 XR chest 1V Stat EKG-12 Lead Stat 09/09/22 12:34 Complete Blood Count AUTO DIFF Stat Comprehensive Metabolic Panel Stat Magnesium Stat PTT Partial Thromboplastin Lane Stat Prothrombin Time INR Stat Troponin & CK Cardiac Panel Stat 09/09/22 12:47 CT angio head and neck Stat 09/09/22 13:10 Urine Drug Screen, Rapid Stat Discontinued Medications Ondansetron HCl (Ondansetron 4 Mg/2 Ml Inj) 4 mg IV NOW PRN PRN Reason: Nausea And Vomiting Ondansetron HCl (Ondansetron 4 Mg Odt) 4 mg SL NOW PRN PRN Reason: Nausea And Vomiting Vital Signs Vital signs: Vital Signs - 8 hr 09/09/22 12:06 09/09/22 12:36 09/09/22 12:46 Temperature 97.5 F L Pulse Rate 75 67 Respiratory Rate 14 Blood Pressure 140/67 128/61 Pulse Oximetry 97 Oxygen Delivery Method Room Air 09/09/22 12:46 09/09/22 14:14 09/09/22 14:15 Temperature Pulse Rate 62 54 L 55 L Respiratory Rate 18 15 Blood Pressure Pulse Oximetry 96 95 95 Oxygen Delivery Method 09/09/22 14:15 Temperature Pulse Rate Respiratory Rate Blood Pressure 114/59 L Pulse Oximetry Oxygen Delivery Method MDM - Neuro Symptoms/Deficit Lab Data 09/09/22 12:34 09/09/22 12:34 Labs: Lab Results 09/09/22 09/09/22 09/09/22 Range/Units 12:34 12:34 12:34 WBC 56.7 H* (4.5-11.0) X10^3/uL RBC 4.65 (4.0-5.2) X10^6/uL Hgb 10.8 L (12.0-16.0) g/dL Hct 34.4 L (36-46) % MCV 73.9 L (80-100) fL MCH 23.3 L (26-34) PG MCHC 31.5 (30-36) % RDW 16.0 H (11.6-14.8) % Plt Count 297 (150-400) X10^3/uL Neut % (Auto) Not Reportable Lymph % (Auto) Not Reportable [place] % (Auto) Not Reportable Eos % (Auto) Not Reportable Baso % (Auto) Not Reportable Lymph # (Auto) Not Reportable [place] # (Auto) Not Reportable Baso # (Auto) Not Reportable Total Counted 100 Seg Neutrophils % 17.0 L (38-70) % Lymphocytes % (Manual) 41.0 (25-45) % Atypical Lymphs % 40.0 H ( - 0) % Monocytes % (Manual) 2.0 (2-11) % Neutrophils # (Manual) 9639 H (7104-3890) /uL Smudge Cells 2+ H RBC Morphology Not Reportable PT 11.5 (10.1-12.7) SECONDS INR 1.0 (0.9-1.3) APTT 28 (26-36) SECONDS Sodium 133 L (137-145) mmol/L Potassium 4.0 (3.4-5.1) mmol/L Chloride 98 (98-107) mmol/L Carbon Dioxide 24 (22-32) mmol/L BUN 23 H (7-17) mg/dL Creatinine 0.80 (0.52-1.04) mg/dL Estimated GFR > 60 (>60) mL/min BUN/Creatinine Ratio 28.8 H (6-22) Glucose 95 (80-110) mg/dL Calcium 9.9 (8.4-10.2) mg/dL Magnesium 1.9 (1.6-2.3) mg/dL Total Bilirubin 0.8 (0.2-1.3) mg/dL AST 39 H (14-36) IU/L ALT 31 (<35) IU/L Alkaline Phosphatase 129 H (38-126) U/L Total Creatine Kinase 144 H (30-135) U/L CK-MB (CK-2) TNP CK-MB (CK-2) Rel Index TNP Troponin I < 0.012 (0.01-0.034) ng/mL Total Protein 7.5 (6.3-8.2) g/dL Albumin 5.0 (3.5-5.0) g/dL Globulin 2.5 (1.7-4.1) g/dL Albumin/Globulin Ratio 2.0 (1.0-2.8) U Opiates 300ng/mL cut (Negative) Ur Oxycodone Screen (Negative) Urine Methadone Screen (Negative) Ur Barbiturates Screen (Negative) U Tricyclic Antidepress (Negative) Ur Phencyclidine Scrn (Negative) Ur Amphetamines Screen (Negative) U Methamphetamines Scrn (Negative) Ur MDMA Scrn (Ecstasy) (Negative) U Benzodiazepines Scrn (Negative) Urine Cocaine Screen (Negative) U Marijuana (THC) Screen (Negative) 09/09/22 Range/Units 13:10 WBC (4.5-11.0) X10^3/uL RBC (4.0-5.2) X10^6/uL Hgb (12.0-16.0) g/dL Hct (36-46) % MCV (80-100) fL MCH (26-34) PG MCHC (30-36) % RDW (11.6-14.8) % Plt Count (150-400) X10^3/uL Neut % (Auto) Lymph % (Auto) [place] % (Auto) Eos % (Auto) Baso % (Auto) Lymph # (Auto) [place] # (Auto) Baso # (Auto) Total Counted Seg Neutrophils % (38-70) % Lymphocytes % (Manual) (25-45) % Atypical Lymphs % ( - 0) % Monocytes % (Manual) (2-11) % Neutrophils # (Manual) (4706-9183) /uL Smudge Cells RBC Morphology PT (10.1-12.7) SECONDS INR (0.9-1.3) APTT (26-36) SECONDS Sodium (137-145) mmol/L Potassium (3.4-5.1) mmol/L Chloride (98-107) mmol/L Carbon Dioxide (22-32) mmol/L BUN (7-17) mg/dL Creatinine (0.52-1.04) mg/dL Estimated GFR (>60) mL/min BUN/Creatinine Ratio (6-22) Glucose (80-110) mg/dL Calcium (8.4-10.2) mg/dL Magnesium (1.6-2.3) mg/dL Total Bilirubin (0.2-1.3) mg/dL AST (14-36) IU/L ALT (<35) IU/L Alkaline Phosphatase (38-126) U/L Total Creatine Kinase (30-135) U/L CK-MB (CK-2) CK-MB (CK-2) Rel Index Troponin I (0.01-0.034) ng/mL Total Protein (6.3-8.2) g/dL Albumin (3.5-5.0) g/dL Globulin (1.7-4.1) g/dL Albumin/Globulin Ratio (1.0-2.8) U Opiates 300ng/mL cut Negative (Negative) Ur Oxycodone Screen Negative (Negative) Urine Methadone Screen Negative (Negative) Ur Barbiturates Screen Negative (Negative) U Tricyclic Antidepress Negative (Negative) Ur Phencyclidine Scrn Negative (Negative) Ur Amphetamines Screen Negative (Negative) U Methamphetamines Scrn Negative (Negative) Ur MDMA Scrn (Ecstasy) Negative (Negative) U Benzodiazepines Scrn Negative (Negative) Urine Cocaine Screen Negative (Negative) U Marijuana (THC) Screen Negative (Negative) Urine Dip Bedside Urine Glucose Negative Bedside Urine Bilirubin - Negative Bedside Urine Ketone - Negative Urine Specific [place] 1.015 Bedside Urine Occult Blood - Negative Bedside Urine pH 6.5 Bedside Urine Protein - Negative Bedside Urine Urobilinogen - Negative Bedside Urine Nitrite - Negative Bedside Urine Leukocytes - Negative Esterase Imaging Data CTA - brain/neck: Radiologist's Impression: PROCEDURE:? CT ANGIO HEAD AND NECK ? INDICATIONS:? syncopal w/ right arm weakness- Sat ? TECHNIQUE:? Pre-contrast 4.5 mm thick sections acquired from the foramen magnum to the vertex.? After the administration of intravenous contrast, 1 mm thick sections acquired from the aortic arch through the [place] of [place].? Post-contrast 4.5 mm thick sections then re-acquired from the foramen magnum to the vertex.? 3-dimensional mxilmdi-zjrhvgyla-uuglhbofix (MIP) and/or volume rendering reformats were acquired of the central intracranial vasculature and neck separately. For radiation dose reduction, the following was used:? automated exposure control, adjustment of mA and/or kV according to patient size.? ? COMPARISON:? None. ? FINDINGS:? Image quality:? Mild streak artifact can be seen through the skull base. ? BRAIN:? CSF spaces:? Ventricles are normal in size and shape.? Basal cisterns are patent.? No extra-axial fluid collections.? ? Brain:? No midline shift.? No intracranial bleeds or masses.? Walker-white matter interface appears intact.? ? Skull and face:? Calvarium and facial bones appear intact, without suspicious lesions.? Orbits appear normal.? ? Sinuses:? Sinuses and mastoids are clear.? ? HEAD CT ANGIOGRAPHY:? Anterior circulation:? Intracranial internal carotid arteries are normal in size and flow.? The flow within the paired anterior cerebral arteries is normal and symmetric.? The flow within the middle cerebral arteries is normal and symmetric.? The anterior communicating artery is seen.? No aneurysms are seen.? ? Posterior circulation:? Note is made of bilateral type origins of the posterior cerebral arteries, with an associated diminutive basilar artery.? The flow within the posterior cerebral arteries is normal and symmetric.? The distal vertebral arteries are overall small in size, yet otherwise unremarkable.? No aneurysms are seen.? ? NECK CT ANGIOGRAPHY:? Carotid system:? Note is made of an aberrant right subclavian artery, which runs posterior to the esophagus.? The origins of the common carotid arteries appear patent.? The common carotid arteries demonstrate normal caliber and courses.? The bifurcation regions are both widely patent.? The internal carotid arteries demonstrate normal calibers and courses.? ? Posterior circulation:? The origins of the vertebral arteries both appear widely patent.? The more superior extracranial portions of both vertebral arteries also demonstrate normal courses and calibers.? They join to form a normal appearing basilar artery.? ? Soft tissues:? Abnormally enlarged lymph nodes can be seen involving both sides of the neck.? For example, there is a right level 2A lymph node seen on series 14, image 98 measuring 27 x 18 mm in greatest axial dimension.? An additional enlarged right level 2A lymph node can be seen on series 14, image 107 measuring 16 x 12 mm in greatest axial dimension.? Within the left supraclavicular region, there is an enlarged lymph node on series 14, image 119 measuring 17 x 11 mm in greatest axial dimension.? Enlarged axillary lymph nodes are seen on both sides. ? Bones:? No suspicious bony lesions.? Visualized cervical spine appears normally aligned.? At least moderate cervical spine degenerative change can be seen. ? ? IMPRESSION:? ? No imaging explanation is found for this patient's presenting symptoms.? ? If there is strong clinical suspicion for an acute stroke, please consider a brain MRI for further evaluation, as it is more sensitive (assuming that there is no contraindication to MRI). ? No significant intracranial arterial abnormality is seen.? ? Within the arteries of the neck, no hemodynamically significant stenosis can be seen. ? ? Abnormally enlarged lymph nodes are seen throughout the neck, including the supraclavicular regions and the visualized axillary regions.? These are consistent with the known history of lymphoma. ? ? Additional findings:? Nniwlr-ug-Gbpcim developmental anomalies At least moderate cervical spine degenerative change Aberrant right subclavian artery.? ? ? Note: Case discussed by telephone with Dr. Rosado at 12:49 p.m. [place] time on September 09, 2022. ? ? Any quantitative measurements of stenosis were performed using NASCET criteria.? ? ? Dictated by: Naeem Boyer M.D. on 09/09/2022 at 12:44 ?? ECG Data Interpretation: Normal sinus rhythm rate 57 DE interval 146 QRS 80 QTC 412 T-wave inversion noted in lead 3, V1 V2 no ST changes, EKG compared to 2020 there is mild T-wave inversion noted in the 1 but definitely more pronounced today. No ST elevations. MDM Narrative Medical decision making narrative: Patient 77-year-old female history of SLL presents 3 days after a syncopal episode only by encouragement for families. She is no focal deficits or complaints today. She continues to have leukocytosis today is 56.7 she reports that she is closely monitored by Tyrone Rowan. Previous WBC count was 37.6, she is not anemic or thrombocytopenic. Sodium is stable at 133 no GERMAN no sign of infection. At this time I encouraged her to follow-up with her oncologist she will certainly do so I do not think this had to do with her syncopal episode 3 days ago. I think that her episode 3 days ago had to do with position pain and vasovagal reaction. Discharge Plan Departure Patient Disposition: Home Clinical Impression: Near syncope Instructions: DI for Syncope in Adults (Fainting) Activity Restrictions/Additional Instructions: *You have been diagnosed with near syncope *What to do: At this time unclear what caused her syncopal episode. No evidence stroke. WBC count today is 56.7 please follow-up with Tyrone *Continue to take medications as directed *Follow up with your primary care provider in 2-3 days or call [phone] *Return to ER if you should have recurrent syncopal episode, chest pain s hortness of breath or any new, worsening or concerning symptoms Prescriptions: No Action ASPIRIN (#ECOTRIN ADULT LOW STRENGTH) 81 mg PO QDAY Qty: 0 CHOLECALCIFEROL (VITAMIN D3) (Vitamin D) 4,000 unit PO QDAY Qty: 0 losartan-hydrochlorothiazide 50-12.5 mg tablet 1 tab PO DAILY Qty: 90 3RF letrozole 2.5 mg tablet 2.5 mg PO DAILY ascorbate calcium (vitamin C) PO mecobalamin (vitamin B12) PO zinc acetate PO CBD Oil PO melatonin PO nystatin 100,000 unit/gram ointment 1 applic topical BID ondansetron HCl 4 mg tablet 4 mg PO Q8H PRN (Reason: nausea and vomiting) Qty: 30 1RF Referrals: Bubba Jones MD [Primary Care Provider] - Stand Alone Forms: Patient Portal/API
[2022-09-09 12:36] VITALS: PULSE 67
[2022-09-09 12:46] VITALS: BP 128/61; PULSE 62; RESP 18; O2SAT 96
[2022-09-09 12:47] LABS: Hematocrit 34.4 % (36-46); Hemoglobin 10.8 g/dL (12.0-16.0); Mean Corpuscular HGB Conc 31.5 % (30-36); Mean Corpuscular Hemoglobin 23.3 PG (26-34); Mean Corpuscular Volume 73.9 fL (80-100); Platelet Count 297 X10^3/uL (150-400); Red Blood Cell Count 4.65 X10^6/uL (4.0-5.2)
--- NOTE | 2022-09-09 12:47 | DI.CT.S_ITS ---
PROCEDURE: CT ANGIO HEAD AND NECK INDICATIONS: syncopal w/ right arm weakness- Sat TECHNIQUE: Pre-contrast 4.5 mm thick sections acquired from the foramen magnum to the vertex. After the administration of intravenous contrast, 1 mm thick sections acquired from the aortic arch through the [place] of [place]. Post-contrast 4.5 mm thick sections then re-acquired from the foramen magnum to the vertex. 3-dimensional tfkojgx-nqelddeky-rqudxhefpd (MIP) and/or volume rendering reformats were acquired of the central intracranial vasculature and neck separately. For radiation dose reduction, the following was used: automated exposure control, adjustment of mA and/or kV according to patient size. COMPARISON: None. FINDINGS: Image quality: Mild streak artifact can be seen through the skull base. BRAIN: CSF spaces: Ventricles are normal in size and shape. Basal cisterns are patent. No extra-axial fluid collections. Brain: No midline shift. No intracranial bleeds or masses. Walker-white matter interface appears intact. Skull and face: Calvarium and facial bones appear intact, without suspicious lesions. Orbits appear normal. Sinuses: Sinuses and mastoids are clear. HEAD CT ANGIOGRAPHY: Anterior circulation: Intracranial internal carotid arteries are normal in size and flow. The flow within the paired anterior cerebral arteries is normal and symmetric. The flow within the middle cerebral arteries is normal and symmetric. The anterior communicating artery is seen. No aneurysms are seen. Posterior circulation: Note is made of bilateral type origins of the posterior cerebral arteries, with an associated diminutive basilar artery. The flow within the posterior cerebral arteries is normal and symmetric. The distal vertebral arteries are overall small in size, yet otherwise unremarkable. No aneurysms are seen. 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 The origins of the common carotid arteries appear patent. The common carotid arteries demonstrate normal caliber and courses. The bifurcation regions are both widely patent. The internal carotid arteries demonstrate normal calibers and courses. Posterior circulation: The origins of the vertebral arteries both appear widely patent. The more superior extracranial portions of both vertebral arteries also demonstrate normal courses and calibers. They join to form a normal appearing basilar artery. Soft tissues: Abnormally enlarged lymph nodes can be seen involving both sides of the neck. For example, there is a right level 2A lymph node seen on series 14, image 98 measuring 27 x 18 mm in greatest axial dimension. An additional enlarged right level 2A lymph node can be seen on series 14, image 107 measuring 16 x 12 mm in greatest axial dimension. Within the left supraclavicular region, there is an enlarged lymph node on series 14, image 119 measuring 17 x 11 mm in greatest axial dimension. Enlarged axillary lymph nodes are seen on both sides. Bones: No suspicious bony lesions. Visualized cervical spine appears normally aligned. At least moderate cervical spine degenerative change can be seen. IMPRESSION: No imaging explanation is found for this patient's presenting symptoms. If there is strong clinical suspicion for an acute stroke, please consider a brain MRI for further evaluation, as it is more sensitive (assuming that there is no contraindication to MRI). No significant intracranial arterial abnormality is seen. Within the arteries of the neck, no hemodynamically significant stenosis can be seen. Abnormally enlarged lymph nodes are seen throughout the neck, including the supraclavicular regions and the visualized axillary regions. These are consistent with the known history of lymphoma. Additional findings: Tbxzyk-xp-Bbvfgp developmental anomalies At least moderate cervical spine degenerative change Aberrant right subclavian artery. Note: Case discussed by telephone with Dr. Rosado at 12:49 p.m. [place] time on September 09, 2022. Any quantitative measurements of stenosis were performed using NASCET criteria. Dictated by: Naeem Boyer M.D. on 09/09/2022 at 12:44 Approved by: Naeem Boyer M.D. on 09/09/2022 at 12:51
[2022-09-09 12:50] LABS: Add Manual Diff / Slide Review YES; White Blood Cell Count 56.7 X10^3/uL (4.5-11.0)
[2022-09-09 12:51] LABS: Prothrombin Time 11.5 SECONDS (10.1-12.7)
[2022-09-09 12:53] LABS: PTT Partial Thromboplastin Tim 28 SECONDS (26-36)
[2022-09-09 12:56] LABS: Alanine Aminotransferase 31 IU/L (<35); Alkaline Phosphatase 129 U/L (38-126); Aspartate Aminotransferase 39 IU/L (14-36); BUN Creatinine Ratio 28.8 (6-22); Bilirubin Total 0.8 mg/dL (0.2-1.3); Blood Urea Nitrogen 23 mg/dL (7-17); Calcium 9.9 mg/dL (8.4-10.2); Carbon Dioxide 24 mmol/L (22-32); Chloride 98 mmol/L (98-107); Creatine Kinase 144 U/L (30-135); Estimated Glomerular Filt Rate > 60 mL/min (>60); Globulin 2.5 g/dL (1.7-4.1); Glucose 95 mg/dL (80-110); HEMOLYSIS < 15 (0-50); Magnesium 1.9 mg/dL (1.6-2.3); Sodium 133 mmol/L (137-145); Total Protein 7.5 g/dL (6.3-8.2)
[2022-09-09 13:07] LABS: Troponin I < 0.012 ng/mL (0.01-0.034)
[2022-09-09 13:33] LABS: Neutrophils Absolute Manual 9639 /uL (3000-5900); Total Cells Counted 100
[2022-09-09 13:34] LABS: Smudge Cells 2+
[2022-09-09 14:14] VITALS: PULSE 54; O2SAT 95
[2022-09-09 14:15] VITALS: BP 114/59; PULSE 55; RESP 15; O2SAT 95
[2022-09-09 15:23] LABS: UR Morphine/Opiate cutoff 300 Negative (Negative); Ur Creatinine Normal (Normal); Ur Specific Gravity Normal (Normal); Urine Amphetamines Negative (Negative); Urine Barbiturates Negative (Negative); Urine Benzodiazepines Negative (Negative); Urine Cocaine Negative (Negative); Urine MDMA Negative (Negative); Urine Methadone Negative (Negative); Urine Methamphetamines Negative (Negative); Urine Oxycodone Negative (Negative); Urine Phencyclidine Negative (Negative); Urine Tetrahydrocannabinol Negative (Negative); Urine Tricyclic Antidepressant Negative (Negative); Urine pH Normal (Normal)
== END 2022-09-09 14:23 | disposition home or self-care (01) ==
PROVIDERS: Emergency Provider Emergency Medicine; PCP Family Medicine
DX: R55 Syncope and collapse (principal); I10 Essential (primary) hypertension; Z87.891 Personal history of nicotine dependence
CPT/HCPCS: 36415; 70496; 70498; 71045; 80053; 80305; 81003; 82550; 83735; 84484; 85007; 85025; 85610; 85730; 93005; 93010; 99284

== ENCOUNTER → 2022-09-18 18:33 | Outpatient (CLI) | payer MEDICARE, OTHER, SELFPAY ==
--- NOTE | 2022-09-18 18:33 | DI.MRI.S_ITS ---
PROCEDURE: MR HEAD/BRAIN WO/W CON INDICATIONS: intermittent blindness, left eye. Syncopal episode TECHNIQUE: Noncontrast axial T1 spin echo, axial T2 fast spin echo, sagittal and axial FLAIR, coronal T2 fast spin echo, axial gradient echo, axial diffusion and ADC through the brain. After the administration of contrast, axial and coronal and sagittal T1 spin echo with fat saturation through the brain. COMPARISON: None. FINDINGS: Image quality: Excellent. CSF spaces: Basal cisterns are patent. No extra-axial fluid collections. Ventricles are normal in size and shape. Brain: No midline shift. No intracranial bleeds or masses. No abnormal intracranial enhancement. There is cerebral volume loss for age. There is periventricular white matter chronic small vessel ischemic change. The brainstem appears normal. Diffusion-weighted images demonstrate no acute ischemic insults. No chronic ischemic insults. Normal intravascular flow voids are present. Skull and face: Calvarial marrow is normal in signal. Orbits appear normal. Sinuses: Sinuses and mastoids appear clear. IMPRESSION: No acute process. No recent infarct. Dictated by: Damion Chiang M.D. on 09/18/2022 at 19:33 Approved by: Damion Chiang M.D. on 09/18/2022 at 19:34
== END ==
PROVIDERS: PCP Family Medicine; Referring Provider Nurse Practitioner Family; Visit Provider Nurse Practitioner Family
DX: H53.10 Unspecified subjective visual disturbances (principal); R55 Syncope and collapse
CPT/HCPCS: 70553; A9579

== ENCOUNTER → 2022-09-29 14:30 | Outpatient (CLI) | payer MEDICARE, OTHER, SELFPAY ==
[2022-09-29 15:20] LABS: Appearance Urine UA CLEAR; Bilirubin Urine UA NEGATIVE (NEGATIVE); Color Urine UA YELLOW; Glucose Urine UA NEGATIVE (Negative); Ketones Urine UA NEGATIVE (NEGATIVE); Leukocyte Esterase Urine UA 1+ (NEGATIVE); Nitrite Urine UA POSITIVE (Negative); Occult Blood Urine UA NEGATIVE (Negative); Protein Urine UA NEGATIVE (Negative)
[2022-09-29 15:30] LABS: Bacteria Urine Few (2-10); Culture Indicated Urine Specimen Cultured; RBC Urine 1-5/HPF (0-5/HPF); Squamous Epithelial Cell Urine 1-5 /HPF (0-5/HPF); WBC Urine 5-10/HPF (0-5/HPF)
== END ==
PROVIDERS: PCP Family Medicine; Referring Provider Family Medicine; Visit Provider Family Medicine
DX: R30.0 Dysuria (principal)
CPT/HCPCS: 81001; 87077; 87086; 87186

== ENCOUNTER → 2022-09-30 11:32 | Outpatient (CLI) | payer MEDICARE, OTHER, SELFPAY ==
[2022-10-02 16:51] LABS: Cholesterol, Total 254 mg/dL (100-199); HDL-Cholesterol 54 mg/dL (>39); LDL Particle 2229 nmol/L (<1000); LDL-Cholsterol 164 mg/dL (0-99); LP-IR Score <25 (<=45); Small LDL- Particle 756 nmol/L (<=527); Triglycerides 196 mg/dL (0-149)
[2022-10-03 03:48] LABS: Lipoprotein (a) 15.6 nmol/L (<75.0)
== END ==
PROVIDERS: PCP Family Medicine; Referring Provider Family Medicine; Visit Provider Family Medicine
DX: E78.5 Hyperlipidemia, unspecified (principal); C50.919 Malignant neoplasm of unspecified site of unspecified female breast; C91.10 Chronic lymphocytic leukemia of B-cell type not having achieved remission; I10 Essential (primary) hypertension
CPT/HCPCS: 36415; 80061; 83695; 83704

== ENCOUNTER → 2023-05-21 08:08 | Outpatient (CLI) | payer MEDICARE, OTHER, SELFPAY ==
[2023-05-21 09:22] LABS: Alanine Aminotransferase 21 IU/L (<35); Albumin 4.5 g/dL (3.5-5.0); Albumin Globulin Ratio 1.7 (1.0-2.8); Alkaline Phosphatase 109 U/L (38-126); Aspartate Aminotransferase 30 IU/L (14-36); BUN Creatinine Ratio 30.4 (6-22); Bilirubin Total 0.7 mg/dL (0.2-1.3); Blood Urea Nitrogen 24 mg/dL (7-17); Calcium 10.1 mg/dL (8.4-10.2); Carbon Dioxide 28 mmol/L (22-32); Chloride 100 mmol/L (98-107); Cholesterol 268 mg/dL (140-199); Estimated Glomerular Filt Rate > 60 mL/min (>60); Globulin 2.7 g/dL (1.7-4.1); Glucose 91 mg/dL (80-110); HDL Cholesterol 63 mg/dL (40-60); HEMOLYSIS < 15 (0-50); LDL Cholesterol Calculated 188 mg/dL (<100); Potassium 3.8 mmol/L (3.4-5.1); Sodium 137 mmol/L (137-145); Total Protein 7.2 g/dL (6.3-8.2); Triglycerides 84 mg/dL (35-150)
[2023-05-22 04:09] LABS: Apolipoprotein B 120 mg/dL (<90)
== END ==
PROVIDERS: PCP Family Medicine; Referring Provider Family Medicine; Visit Provider Family Medicine
DX: I10 Essential (primary) hypertension (principal); E78.5 Hyperlipidemia, unspecified
CPT/HCPCS: 36415; 80053; 80061; 82172

== ENCOUNTER 2023-12-09 11:15 | Outpatient (RCR) | payer MEDICARE, OTHER, SELFPAY ==
--- NOTE | 2023-08-24 18:35 | PT.OIE ---
Current Diagnoses Malignant neoplasm of upper-outer quadrant of right female breast (08/24/23) Sciatica, unspecified side (08/24/23) Estrogen receptor positive status [ER+] (08/24/23) Past Medical History (Last Updated 03/31/23 @ 08:24 by Bubba Jones MD) Anemia Axillary lymphadenopathy Breast cancer Breast mass, right CLL (chronic lymphocytic leukemia) Diarrhea Family history of malignant neoplasm of breast in first degree relative Hyperlipidemia Hypertension Psoriatic arthritis Past Surgical History (Last Reviewed 09/09/22 @ 12:50 by Helena Rosado DO) H/O lumpectomy History of hysterectomy History of lumpectomy of both breasts History of salpingo-oophorectomy Visit Care Team Role Provider Type Bubba Jones MD Family Provider Physician Primary Care Provider Specialty: Family Practice Address: [address] [place] [address], [facility] Email: [email or web address] MIRNA Schreiber Attending Provider Non-Staff Referring Provider Specialty: Nursing Address: [address] [place] [address], [facility] Fax: Email: Physical Therapy Initial Evaluation PT-OP-A Visit Information Start: 08/20/23 17:36 Freq: Status: Active Protocol: Document 08/24/23 13:00 [facility] (Rec: 08/24/23 14:35 [facility] [id number]) Out-Patient Physical Therapy Visit Information Visit Information Visit Type Initial Evaluation Visit Note 04/15 Visit Start Time 13:01 Visit Stop Time 13:55 Visit Number 1 Number of PATTERN CHAIN MAKER SUPERVISOR Visits 0 PT-OP-B Current Condition Start: 08/20/23 17:36 Freq: Status: Active Protocol: Document 08/24/23 13:00 [facility] (Rec: 08/24/23 14:35 [facility] [id number]) Current Condition History of Current Condition Onset Date Apr Current Complaints R leg and buttocks pain History of Current Condition Pt reports she started having leg pain in Apr and just came out of the blue one day. She has had history of sciatica 2.5 years ago. Pt rpeorts last time it was her R leg also. Last time, eventually went to chiro and massage therapy. It lasted 4 months. She started seeing the chiro about 2 months ago. Chiro attributes piriformis. This time, she has found soem youtube exercsies and chiro approved them but isn't sure she is doing them correctly. Occ, when she has a lot of pain, she does the clamshell but feels like it is just focusing on the exercise distracts her. Las kofiple of months has felt like L arch has fallen and when she is walking gets pain in arch and even sitting sometimes in bottom of foot. L foot gets swollen. Denies numbness or tingling. 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 Still hs 3 more months (done 3 others) of oral meds. 2020 breast cancer dx and had lumpectomy and is showing neg for further cancer . Dizziness with standing up. She has lost a lot of wt with keto diet for over a year. Was on BP med until Mar and is now on every other day dose. Feels good when get into bed and wakes up at 4 am so uncomfortable. Sleeps with pillow btwn knees but loses it by 4 am. No xrays done yet. Pt does have hx of B ovary removal and hysterectomy in 1996 with significant abodminal scar. She notes no GI distress when questioned, but does note heat pack to abdomen can help relieve pain Treatment Goals Patient/Caregiver Goals RV trips w/o pain. Has big trip in fall planned, get shoes/socks on easier, be able to sit to knit, sleep better PT-OP-C Subjective Start: 08/20/23 17:36 Freq: Status: Active Protocol: Document 08/24/23 13:00 [facility] (Rec: 08/24/23 14:35 [facility] [id number]) OP-PT Pain Assessment Location R Pain Location Details pain R lower thoracic, butt, groin, post thigh, lat lower leg, achilles, Intensity 7 Scale Used Numeric (0 - 10) Description Aching,Sharp Frequency Frequent Pain Aggravating Factors ADL's,Standing,Sitting Other Pain Aggravating Factors (car worst) Other Pain Alleviating Factors sit offloading R buttocks PT-OP-F Manual Assessment Start: 08/20/23 17:36 Freq: Status: Active Protocol: Document 08/24/23 13:00 [facility] (Rec: 08/24/23 14:35 [facility] [id number]) Manual Assessments Joint Mobility Assessment Joint Mobility Assessment dec hip abd mobility PT-OP-J Posture/Palpation/Skin Start: 08/20/23 17:36 Freq: Status: Active Protocol: Document 08/24/23 13:00 [facility] (Rec: 08/24/23 14:35 [facility] [id number]) Posture Evaluation Comments Posture Comments Wt shifted to L, L knee valgus , R foot turned, R rot, R pelvic shear; R iliac crest elevated & greater troch PT-OP-K Range of Motion Start: 08/20/23 17:36 Freq: Status: Active Protocol: Document 08/24/23 13:00 [facility] (Rec: 08/24/23 14:35 [facility] [id number]) Lumbar Spine Range of Motion Lumbar Spine Active Percentage Flexion 75 Extension 75 Rotation Left 80 Rotation Right 60 Lateral Flexion Left 90 Lateral Flexion Right 50 Comments pain B buttocks flex/ex PT-OP-L Special Tests Start: 08/20/23 17:36 Freq: Status: Active Protocol: Document 08/24/23 13:00 [facility] (Rec: 08/24/23 14:35 [facility] [id number]) Special Tests Lumbar Spine Special Tests march Test Results pos L Slump Test Results pos R PT-OP-M Strength Start: 08/20/23 17:36 Freq: Status: Active Protocol: Document 08/24/23 13:00 [facility] (Rec: 08/24/23 14:35 [facility] [id number]) Hip Strength Hip Manual Muscle Testing Right Flexion (L2) 4- Good- Abduction 3+ Fair+ External Rotation 4 Good Internal Rotation 4- Good- Left Flexion (L2) 4- Good- Abduction 4- Good- Adduction 4- Good- External Rotation 4- Good- Internal Rotation 4- Good- PT-OP-Q Treatments Start: 08/20/23 17:36 Freq: Status: Active Protocol: Document 08/24/23 13:00 [facility] (Rec: 08/24/23 14:35 [facility] [id number]) Therapeutic Activity Therapeutic Activity sleep position Reps/Minutes 8 min Comments edu and use of pillows (move in/out of position) to show how pillow and towel support can dec pain. Self-Care/Home Management Treatment Education Other Education 15min:edu on her postural position and why she may be choosing positions to offload spine, edu on inflamation and how this can cause referred pain. Edu re: possible leg length discrepency with potential for use of lift in L shoe; discussed considering arch support like superfeet to feet more support in feet. PT-OP-T Assessment and Plan Start: 08/20/23 17:36 Freq: Status: Active Protocol: Document 08/24/23 13:00 [facility] (Rec: 08/24/23 14:35 [facility] [id number]) Physical Therapy Assessment Rehab Potential Rehabilitation Potential Good Evaluation Complexity Number of Personal Factors/Comorbidities 3 or More Number of Body Systems Impaired 4 or More Clinical Presentation at Evaluation Evolving Impairments Impairments Balance,Functional Activities, Gait,Pain,Posture,ROM,Soft Tissue Mobility,Strength Goals KELI Impairment 32% Short Term Goal (STG) Pt will improve KELI score to no greater than 24% in order to show improved functional capacity. STG Duration 10/03 Penitentiary Goal (LTG) Pt will improve KELI score to no greater than 4% in order to show improved functional capacity. LTG Duration 11/09 strength Short Term Goal (STG) Pt will be indep w/HEP for dec pain, strength and mobility. STG Duration 09/18 Penitentiary Goal (LTG) Pt will score at least 4+/5 on BLE MMT in order to allow her to participate in her ADLs w/ o inc hip/leg pain. LTG Duration 11/09 sleep Short Term Goal (STG) Pt will be educated and follow education re: sleep posture and positioning along w/shoe lift and orthotics (as needed) STG Duration 09/18 Consulting Networking Engineer Goal (LTG) Pt will be able to sleep fully through the night w/o waking d/t pain or waking up w/pain. LTG Duration 11/04 sitting Short Term Goal (STG) Pt will be able to sit and have full hip ROM in order to don/doff shoes/socks w/o inc pain. STG Duration 10/04 Penitentiary Goal (LTG) Pt will be able to sit long periods w/o inc pain in order to facilitate ease w/travel in fall and ability to knit LTG Duration 11/15 Assessment Summary Assessment Pt presents w/c/o R buttocks pain that radiates to post thigh,& lat lower leg along w/ R groin pain when dressing. She has positive neural tension on R per slump and positive for innominate dysfunction. She does have L foot discomfort recently w/B dec arch stability. She has signficant postural dysfunctions which are likely leading to pain in hip/leg along w/inc pain in L foot. She does have likely leg length discrepency, but may be related to inc valgus of L knee and pronation of L foot. She would benefit from skilled PT to improve alignment and mobility and dec pain to improve daily life. Physical Therapy Plan Frequency and Duration Frequency of Treatment 2x/Week Duration of treatment (weeks) 12 Plan of Care Start Date 08/24/23 Plan of Care End Date 11/16/23 Therapeutic Interventions Therapeutic Interventions Balance Training,Gait Training ,Home Exercise Program,Joint Mobilizations,Manual Therapy, Neuromuscular Re-education, Orthotic/Prosthetic Management ,Patient/Caregiver Education, Self-Care/Home Management,Soft Tissue Mobilization,Taping, Therapeutic Activities, Therapeutic Exercises Modalities Cold Pack/Ice Massage,Electric Stimulation,Hot Packs, Traction- Mechanical, Ultrasound Next Visit Focus/Plan Next Note Type Treatment Note Next Visit Plan Manual: work on hip, innominate mobility Ther ex: resisted IR, hip 4 way, look at performance w/ current exercises gait training consider lift
--- NOTE | 2023-08-24 18:35 | PT.OPPOC ---
Addendum entered and electronically signed by Moriah Solis, PT 08/24/23 18:37: POC sent Original Note: Physical, Occupational & Speech Therapy At [facility] Current Diagnoses Malignant neoplasm of upper-outer quadrant of right female breast (08/24/23) Sciatica, unspecified side (08/24/23) Estrogen receptor positive status [ER+] (08/24/23) Visit Care Team Role Provider Type Bubba Jones MD Family Provider Physician Primary Care Provider Specialty: Family Practice Address: [address] [place] [address], [facility] Email: [email or web address] MIRNA Schreiber Attending Provider Non-Staff Referring Provider Specialty: Nursing Address: [address] [place] [address], [facility] Fax: Email: Plan Of Care PT-OP-T Assessment and Plan Start: 08/20/23 17:36 Freq: Status: Active Protocol: Document 08/24/23 13:00 [facility] (Rec: 08/24/23 14:35 [facility] [id number]) Physical Therapy Assessment Rehab Potential Rehabilitation Potential Good Evaluation Complexity Number of Personal Factors/Comorbidities 3 or More Number of Body Systems Impaired 4 or More Clinical Presentation at Evaluation Evolving Impairments Impairments Balance,Functional Activities, Gait,Pain,Posture,ROM,Soft Tissue Mobility,Strength Goals KELI Impairment 32% Short Term Goal (STG) Pt will improve KELI score to no greater than 24% in order to show improved functional capacity. STG Duration 10/03 Trust Operations Assistant Goal (LTG) Pt will improve KELI score to no greater than 4% in order to show improved functional capacity. LTG Duration 11/09 strength Short Term Goal (STG) Pt will be indep w/HEP for dec pain, strength and mobility. STG Duration 09/18 Trust Operations Assistant Goal (LTG) Pt will score at least 4+/5 on BLE MMT in order to allow her to participate in her ADLs w/ o inc hip/leg pain. LTG Duration 11/09 sleep Short Term Goal (STG) Pt will be educated and follow education re: sleep posture and positioning along w/shoe lift and orthotics (as needed) STG Duration 09/18 Snf Goal (LTG) Pt will be able to sleep fully through the night w/o waking d/t pain or waking up w/pain. LTG Duration 8 sitting Short Term Goal (STG) Pt will be able to sit and have full hip ROM in order to don/doff shoes/socks w/o inc pain. STG Duration 10/04 Snf Goal (LTG) Pt will be able to sit long periods w/o inc pain in order to facilitate ease w/travel in fall and ability to knit LTG Duration 11/15 Assessment Summary Assessment Pt presents w/c/o R buttocks pain that radiates to post thigh,& lat lower leg along w/ R groin pain when dressing. She has positive neural tension on R per slump and positive for innominate dysfunction. She does have L foot discomfort recently w/B dec arch stability. She has signficant postural dysfunctions which are likely leading to pain in hip/leg along w/inc pain in L foot. She does have likely leg length discrepency, but may be related to inc valgus of L knee and pronation of L foot. She would benefit from skilled PT to improve alignment and mobility and dec pain to improve daily life. Physical Therapy Plan Frequency and Duration Frequency of Treatment 2x/Week Duration of treatment (weeks) 12 Plan of Care Start Date 08/24/23 Plan of Care End Date 11/16/23 Therapeutic Interventions Therapeutic Interventions Balance Training,Gait Training ,Home Exercise Program,Joint Mobilizations,Manual Therapy, Neuromuscular Re-education, Orthotic/Prosthetic Management ,Patient/Caregiver Education, Self-Care/Home Management,Soft Tissue Mobilization,Taping, Therapeutic Activities, Therapeutic Exercises Modalities Cold Pack/Ice Massage,Electric Stimulation,Hot Packs, Traction- Mechanical, Ultrasound Next Visit Focus/Plan Next Note Type Treatment Note Next Visit Plan Manual: work on hip, innominate mobility Ther ex: resisted IR, hip 4 way, look at performance w/ current exercises gait training consider lift Plan of Care Dates Plan of Care Start Date 08/24/23 Plan of Care End Date 11/16/23 Electronically Signed by: Moriah Solis, PT 08/24/23 [id number] If you are in agreement with this Plan of Care, please return a signed and dated copy. I have reviewed this Plan of Care and certify that the skilled therapy services above are required to meet the patient?s needs. Physician Signature Date Printed Name and Credentials Clinical Instructor Signature Printed Name and Credentials
--- NOTE | 2023-08-26 10:38 | PT.OTN ---
Addendum entered and electronically signed by Moriah Solis, PT 08/26/23 10:40: PT direct supervision and direction to student PT Rufino Dunbar throughout session Original Note: Current Diagnoses Malignant neoplasm of upper-outer quadrant of right female breast (08/26/23) Sciatica, unspecified side (08/26/23) Estrogen receptor positive status [ER+] (08/26/23) Physical Therapy Treatment Note PT-OP-A Visit Information Start: 08/20/23 17:36 Freq: Status: Active Protocol: Document 08/26/23 10:03 J (Rec: 08/26/23 10:35 [id number]) Out-Patient Physical Therapy Visit Information Visit Information Visit Type Treatment Note Visit Note 05/16 Visit Start Time 09:00 Visit Stop Time 09:50 Visit Number 2 Number of VEGETABLE PICKER Visits 0 PT-OP-B Current Condition Start: 08/20/23 17:36 Freq: Status: Active Protocol: Document 08/24/23 13:00 [facility] (Rec: 08/24/23 14:35 [facility] [id number]) Current Condition History of Current Condition Onset Date Apr Current Complaints R leg and buttocks pain History of Current Condition Pt reports she started having leg pain in Apr and just came out of the blue one day. She has had history of sciatica 2.5 years ago. Pt rpeorts last time it was her R leg also. Last time, eventually went to chiro and massage therapy. It lasted 4 months. She started seeing the chiro about 2 months ago. Chiro attributes piriformis. This time, she has found soem youtube exercsies and chiro approved them but isn't sure she is doing them correctly. Occ, when she has a lot of pain, she does the clamshell but feels like it is just focusing on the exercise distracts her. Las tcouple of months has felt like L arch has fallen and when she is walking gets pain in arch and even sitting sometimes in bottom of foot. L foot gets swollen. Denies numbness or tingling. 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 Still hs 3 more months (done 3 others) of oral meds. 2020 breast cancer dx and had lumpectomy and is showing neg for further cancer . Dizziness with standing up. She has lost a lot of wt with keto diet for over a year. Was on BP med until Mar and is now on every other day dose. Feels good when get into bed and wakes up at 4 am so uncomfortable. Sleeps with pillow btwn knees but loses it by 4 am. No xrays done yet. Pt does have hx of B ovary removal and hysterectomy in 1996 with significant abodminal scar. She notes no GI distress when questioned, but does note heat pack to abdomen can help relieve pain Treatment Goals Patient/Caregiver Goals RV trips w/o pain. Has big trip in fall planned, get shoes/socks on easier, be able to sit to knit, sleep better PT-OP-C Subjective Start: 08/20/23 17:36 Freq: Status: Active Protocol: Document 08/26/23 10:03 J (Rec: 08/26/23 10:36 [id number]) OP-PT Subjective Patient Comments Patient Comments Pt wanted to be checked on home exercises to ensure they were being done correctly. PT-OP-F Manual Assessment Start: 08/20/23 17:36 Freq: Status: Active Protocol: Document 08/24/23 13:00 [facility] (Rec: 08/24/23 14:35 [facility] [id number]) Manual Assessments Joint Mobility Assessment Joint Mobility Assessment dec hip abd mobility PT-OP-J Posture/Palpation/Skin Start: 08/20/23 17:36 Freq: Status: Active Protocol: Document 08/24/23 13:00 [facility] (Rec: 08/24/23 14:35 [facility] [id number]) Posture Evaluation Comments Posture Comments Wt shifted to L, L knee valgus , R foot turned, R rot, R pelvic shear; R iliac crest elevated & greater troch PT-OP-K Range of Motion Start: 08/20/23 17:36 Freq: Status: Active Protocol: Document 08/24/23 13:00 [facility] (Rec: 08/24/23 14:35 [facility] [id number]) Lumbar Spine Range of Motion Lumbar Spine Active Percentage Flexion 75 Extension 75 Rotation Left 80 Rotation Right 60 Lateral Flexion Left 90 Lateral Flexion Right 50 Comments pain B buttocks flex/ex PT-OP-L Special Tests Start: 08/20/23 17:36 Freq: Status: Active Protocol: Document 08/24/23 13:00 [facility] (Rec: 08/24/23 14:35 [facility] [id number]) Special Tests Lumbar Spine Special Tests march Test Results pos L Slump Test Results pos R PT-OP-M Strength Start: 08/20/23 17:36 Freq: Status: Active Protocol: Document 08/24/23 13:00 [facility] (Rec: 08/24/23 14:35 [facility] [id number]) Hip Strength Hip Manual Muscle Testing Right Flexion (L2) 4- Good- Abduction 3+ Fair+ External Rotation 4 Good Internal Rotation 4- Good- Left Flexion (L2) 4- Good- Abduction 4- Good- Adduction 4- Good- External Rotation 4- Good- Internal Rotation 4- Good- PT-OP-Q Treatments Start: 08/20/23 17:36 Freq: Status: Active Protocol: Document 08/26/23 10:03 J[facility] (Rec: 08/26/23 10:35 [facility] [id number]) Therapeutic Exercises Supine Exercises Stretch Supine Exercise Name Piriformis Side bilateral Reps/Minutes 2 second holdx10 Comments Pt had to be reminded to hold exercise for 30 sec if able Sidelying Exercises clamshells Side bilateral Reps/Minutes 15 Comments Pt had to be reminded to perform exercise B-hand on hip R Sitting Exercises STS Side bilateral Reps/Minutes 10x2 Comments Pt needed cuing to maintain proper hip hinge and control on the way down Standing Exercises hip 4 way Side bilateral Equipment Used bar Reps/Minutes 15 Comments Performed hip ext in hip hinge at bar , abd, and marches B Manual Therapy Treatment Soft Tissue Mobilization Add Body Location R Add jayden Mobilization Type Rolling,Sustained Pressure Intensity/Depth Moderate Body Position Hooklying Comments w/ER Lat Body Location R ITB & Lat glute Mobilization Type Rolling,Sustained Pressure Intensity/Depth Moderate Body Position Hooklying Comments w/IR Joint Mobilizations Hip Comments 1. Free the ball IR FM 2. Free the ball ER FM PT-OP-T Assessment and Plan Start: 08/20/23 17:36 Freq: Status: Active Protocol: Document 08/26/23 10:03 J[facility] (Rec: 08/26/23 10:35 [facility] [id number]) Physical Therapy Assessment Goals KELI Impairment 32% Short Term Goal (STG) Pt will improve KELI score to no greater than 24% in order to show improved functional capacity. STG Duration 10/03 Clinical Instructor Goal (LTG) Pt will improve KELI score to no greater than 4% in order to show improved functional capacity. LTG Duration 11/09 strength Short Term Goal (STG) Pt will be indep w/HEP for dec pain, strength and mobility. STG Duration 09/18 Clinical Instructor Goal (LTG) Pt will score at least 4+/5 on BLE MMT in order to allow her to participate in her ADLs w/ o inc hip/leg pain. LTG Duration 11/09 sleep Short Term Goal (STG) Pt will be educated and follow education re: sleep posture and positioning along w/shoe lift and orthotics (as needed) STG Duration 09/18 Clinical Instructor Goal (LTG) Pt will be able to sleep fully through the night w/o waking d/t pain or waking up w/pain. LTG Duration 11/04 sitting Short Term Goal (STG) Pt will be able to sit and have full hip ROM in order to don/doff shoes/socks w/o inc pain. STG Duration 10/04 Clinical Instructor Goal (LTG) Pt will be able to sit long periods w/o inc pain in order to facilitate ease w/travel in fall and ability to knit LTG Duration 11/15 Assessment Summary Assessment Pt had pain in groin and was tender to palpation during manual treatment and it also limited ER. Pt felt like she could lift into clamshell easier after. Pt needs verbal and hand postional cuing for reminder of hip position during clamshells. Pt had decreased confidence with independant exercises, and felt better after cueing and handouts for performance at home. Physical Therapy Plan Next Visit Focus/Plan Next Note Type Treatment Note Next Visit Plan Recheck pt education on HEP; hip & innominate mobility, resisted IR/ER, hip 4 way. Manual therapy
--- NOTE | 2023-09-02 13:50 | PT.OTN ---
Current Diagnoses Malignant neoplasm of upper-outer quadrant of right female breast (09/02/23) Sciatica, unspecified side (09/02/23) Estrogen receptor positive status [ER+] (09/02/23) Physical Therapy Treatment Note PT-OP-A Visit Information Start: 08/20/23 17:36 Freq: Status: Active Protocol: Document 09/02/23 12:55 AB (Rec: 09/02/23 13:48 AB [id number]) Out-Patient Physical Therapy Visit Information Visit Information Visit Type Treatment Note Visit Note 06/13 Visit [email or web address] Access Code: [email or web address] Visit Start Time 13:00 Visit Stop Time 13:44 Visit Number 3 Number of [employer]CISION [employer]S ASSEMBLER Visits 1 PT-OP-B Current Condition Start: 08/20/23 17:36 Freq: Status: Active Protocol: Document 08/24/23 13:00 [facility] (Rec: 08/24/23 14:35 [facility] [id number]) Current Condition History of Current Condition Onset Date Apr Current Complaints R leg and buttocks pain History of Current Condition Pt reports she started having leg pain in Apr and just came out of the blue one day. She has had history of sciatica 2.5 years ago. Pt rpeorts last time it was her R leg also. Last time, eventually went to chiro and massage therapy. It lasted 4 months. She started seeing the chiro about 2 months ago. Chiro attributes piriformis. This time, she has found soem [employer] exercsies and chiro approved them but isn't sure she is doing them correctly. Occ, when she has a lot of pain, she does the clamshell but feels like it is just focusing on the exercise distracts her. [place] of months has felt like L arch has fallen and when she is walking gets pain in arch and even sitting sometimes in bottom of foot. L foot gets swollen. Denies numbness or tingling. 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 Still hs 3 more months (done 3 others) of oral meds. 2020 breast cancer dx and had lumpectomy and is showing neg for further cancer . Dizziness with standing up. She has lost a lot of wt with keto diet for over a year. Was on BP med until Mar and is now on every other day dose. Feels good when get into bed and wakes up at 4 am so uncomfortable. Sleeps with pillow btwn knees but loses it by 4 am. No xrays done yet. Pt does have hx of B ovary removal and hysterectomy in 1996 with significant abodminal scar. She notes no GI distress when questioned, but does note heat pack to abdomen can help relieve pain Treatment Goals Patient/Caregiver Goals RV trips w/o pain. Has big trip in fall planned, get shoes/socks on easier, be able to sit to knit, sleep better PT-OP-C Subjective Start: 08/20/23 17:36 Freq: Status: Active Protocol: Document 09/02/23 12:55 AB (Rec: 09/02/23 13:48 AB [id number]) OP-PT Subjective Patient Comments Patient Comments Patient reports the sciatic pain decreased to buttocks area post previous session. Patient reports the pain starting going back down the leg on Thursday. Patient reports orthotics are in and her feet feel less clublike. Patient reports she has been doing her exercises except for one. PT-OP-F Manual Assessment Start: 08/20/23 17:36 Freq: Status: Active Protocol: Document 08/24/23 13:00 [facility] (Rec: 08/24/23 14:35 [facility] [id number]) Manual Assessments Joint Mobility Assessment Joint Mobility Assessment dec hip abd mobility PT-OP-J Posture/Palpation/Skin Start: 08/20/23 17:36 Freq: Status: Active Protocol: Document 08/24/23 13:00 [facility] (Rec: 08/24/23 14:35 [facility] [id number]) Posture Evaluation Comments Posture Comments Wt shifted to L, L knee valgus , R foot turned, R rot, R pelvic shear; R iliac crest elevated & greater troch PT-OP-K Range of Motion Start: 08/20/23 17:36 Freq: Status: Active Protocol: Document 08/24/23 13:00 [facility] (Rec: 08/24/23 14:35 [facility] [id number]) Lumbar Spine Range of Motion Lumbar Spine Active Percentage Flexion 75 Extension 75 Rotation Left 80 Rotation Right 60 Lateral Flexion Left 90 Lateral Flexion Right 50 Comments pain B buttocks flex/ex PT-OP-L Special Tests Start: 08/20/23 17:36 Freq: Status: Active Protocol: Document 08/24/23 13:00 [facility] (Rec: 08/24/23 14:35 [facility] [id number]) Special Tests Lumbar Spine Special Tests march Test Results pos L Slump Test Results pos R PT-OP-M Strength Start: 08/20/23 17:36 Freq: Status: Active Protocol: Document 08/24/23 13:00 [facility] (Rec: 08/24/23 14:35 [facility] [id number]) Hip Strength Hip Manual Muscle Testing Right Flexion (L2) 4- Good- Abduction 3+ Fair+ External Rotation 4 Good Internal Rotation 4- Good- Left Flexion (L2) 4- Good- Abduction 4- Good- Adduction 4- Good- External Rotation 4- Good- Internal Rotation 4- Good- PT-OP-Q Treatments Start: 08/20/23 17:36 Freq: Status: Active Protocol: Document 09/02/23 12:55 AB (Rec: 09/02/23 13:48 AB [id number]) Therapeutic Exercises Supine Exercises Stretch Supine Exercise Name Piriformis Side bilateral Reps/Minutes 60 seconds X2 each LE Comments Pt had to be reminded to hold exercise for 30 sec if able Sidelying Exercises clamshells Side bilateral Reps/Minutes 15 Comments Pt had to be reminded to perform exercise B-hand on hip R Sitting Exercises Seated hip abduction with band Side bilateral Resistance orange band Reps/Minutes one minute X 1 Standing Exercises hip 4 way Side bilateral Equipment Used bar Reps/Minutes 15 Comments ext and abduction, VC to avoid toeing out Manual Therapy Treatment Soft Tissue Mobilization Add Body Location R Add jayden and hip flexor Mobilization Type Rolling,Sustained Pressure Intensity/Depth Moderate Body Position Hooklying Comments w/ER Lat Body Location R ITB & Lat glute Mobilization Type Rolling,Sustained Pressure Intensity/Depth Moderate Body Position Sidelying Comments w/IR Manual Techniques MET for right AI left PI and pubic shot gun Reps/Duration 6 sec X 6 each PT-OP-T Assessment and Plan Start: 08/20/23 17:36 Freq: Status: Active Protocol: Document 09/02/23 12:55 AB (Rec: 09/02/23 13:48 AB [id number]) Physical Therapy Assessment Goals EKLI Impairment 32% Short Term Goal (STG) Pt will improve KELI score to no greater than 24% in order to show improved functional capacity. STG Duration 6/30 [employer] Goal (LTG) Pt will improve KELI score to no greater than 4% in order to show improved functional capacity. LTG Duration 11/09 strength Short Term Goal (STG) Pt will be indep w/HEP for dec pain, strength and mobility. STG Duration 09/18 [facility] Goal (LTG) Pt will score at least 4+/5 on BLE MMT in order to allow her to participate in her ADLs w/ o inc hip/leg pain. LTG Duration 11/09 sleep Short Term Goal (STG) Pt will be educated and follow education re: sleep posture and positioning along w/shoe lift and orthotics (as needed) STG Duration 09/18 [facility] Goal (LTG) Pt will be able to sleep fully through the night w/o waking d/t pain or waking up w/pain. LTG Duration 11/04 sitting Short Term Goal (STG) Pt will be able to sit and have full hip ROM in order to don/doff shoes/socks w/o inc pain. STG Duration 10/04 [facility] Goal (LTG) Pt will be able to sit long periods w/o inc pain in order to facilitate ease w/travel in fall and ability to knit LTG Duration 11/15 Assessment Summary Assessment Patient reports feeling better post manual therapy and MET. Patient reports she feels 10 years younger, feels great. Physical Therapy Plan Frequency and Duration Frequency of Treatment 2x/Week Duration of treatment (weeks) 12 Plan of Care Start Date 08/24/23 Plan of Care End Date 11/16/23 Next Visit Focus/Plan Next Note Type Treatment Note Next Visit Plan Recheck pt education on HEP; hip & innominate mobility, resisted IR/ER, hip 4 way. Manual therapy
--- NOTE | 2023-09-04 11:31 | PT.OTN ---
Current Diagnoses Malignant neoplasm of upper-outer quadrant of right female breast (09/04/23) Sciatica, unspecified side (09/04/23) Estrogen receptor positive status [ER+] (09/04/23) Physical Therapy Treatment Note PT-OP-A Visit Information Start: 08/20/23 17:36 Freq: Status: Active Protocol: Document 09/04/23 08:11 AB (Rec: 09/04/23 11:30 AB [id number]) Out-Patient Physical Therapy Visit Information Visit Information Visit Type Treatment Note Visit Note 07/14 Visit [email or web address] Access Code: [email or web address] Visit Start Time 09:03 Visit Stop Time 09:47 Visit Number 4 Number of CELL SUPPORT OPERATOR Visits 1 PT-OP-B Current Condition Start: 08/20/23 17:36 Freq: Status: Active Protocol: Document 08/24/23 13:00 [facility] (Rec: 08/24/23 14:35 [facility] [id number]) Current Condition History of Current Condition Onset Date Apr Current Complaints R leg and buttocks pain History of Current Condition Pt reports she started having leg pain in Apr and just came out of the blue one day. She has had history of sciatica 2.5 years ago. Pt rpeorts last time it was her R leg also. Last time, eventually went to chiro and massage therapy. It lasted 4 months. She started seeing the chiro about 2 months ago. Chiro attributes piriformis. This time, she has found soem [email or web address] exercsies and chiro approved them but isn't sure she is doing them correctly. Occ, when she has a lot of pain, she does the clamshell but feels like it is just focusing on the exercise distracts her. [place] of months has felt like L arch has fallen and when she is walking gets pain in arch and even sitting sometimes in bottom of foot. L foot gets swollen. Denies numbness or tingling. 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 Still hs 3 more months (done 3 others) of oral meds. 2020 breast cancer dx and had lumpectomy and is showing neg for further cancer . Dizziness with standing up. She has lost a lot of wt with keto diet for over a year. Was on BP med until Dec and is now on every other day dose. Feels good when get into bed and wakes up at 4 am so uncomfortable. Sleeps with pillow btwn knees but loses it by 4 am. No xrays done yet. Pt does have hx of B ovary removal and hysterectomy in 1996 with significant abodminal scar. She notes no GI distress when questioned, but does note heat pack to abdomen can help relieve pain Treatment Goals Patient/Caregiver Goals RV trips w/o pain. Has big trip in fall planned, get shoes/socks on easier, be able to sit to knit, sleep better PT-OP-C Subjective Start: 08/20/23 17:36 Freq: Status: Active Protocol: Document 09/04/23 08:11 AB (Rec: 09/04/23 11:30 AB [id number]) OP-PT Subjective Patient Comments Patient Comments Patient reports she is better, reports she has some soreness right gluteal area. Patient reports she feels steadier. Patient reports she gets sharp groin pain when getting up and turning leg out right LE. Patient reports the cushion she is using in the passenger seat when traveling is helping . Coco reports difficulty with HEP exercise standing hip flexion with band. PT-OP-F Manual Assessment Start: 08/20/23 17:36 Freq: Status: Active Protocol: Document 08/24/23 13:00 [facility] (Rec: 08/24/23 14:35 [facility] [id number]) Manual Assessments Joint Mobility Assessment Joint Mobility Assessment dec hip abd mobility PT-OP-J Posture/Palpation/Skin Start: 08/20/23 17:36 Freq: Status: Active Protocol: Document 08/24/23 13:00 [facility] (Rec: 08/24/23 14:35 [facility] [id number]) Posture Evaluation Comments Posture Comments Wt shifted to L, L knee valgus , R foot turned, R rot, R pelvic shear; R iliac crest elevated & greater troch PT-OP-K Range of Motion Start: 08/20/23 17:36 Freq: Status: Active Protocol: Document 08/24/23 13:00 [facility] (Rec: 08/24/23 14:35 [facility] [id number]) Lumbar Spine Range of Motion Lumbar Spine Active Percentage Flexion 75 Extension 75 Rotation Left 80 Rotation Right 60 Lateral Flexion Left 90 Lateral Flexion Right 50 Comments pain B buttocks flex/ex PT-OP-L Special Tests Start: 08/20/23 17:36 Freq: Status: Active Protocol: Document 08/24/23 13:00 [facility] (Rec: 08/24/23 14:35 [facility] [id number]) Special Tests Lumbar Spine Special Tests march Test Results pos L Slump Test Results pos R PT-OP-M Strength Start: 08/20/23 17:36 Freq: Status: Active Protocol: Document 08/24/23 13:00 [facility] (Rec: 08/24/23 14:35 [facility] [id number]) Hip Strength Hip Manual Muscle Testing Right Flexion (L2) 4- Good- Abduction 3+ Fair+ External Rotation 4 Good Internal Rotation 4- Good- Left Flexion (L2) 4- Good- Abduction 4- Good- Adduction 4- Good- External Rotation 4- Good- Internal Rotation 4- Good- PT-OP-Q Treatments Start: 08/20/23 17:36 Freq: Status: Active Protocol: Document 09/04/23 08:11 AB (Rec: 09/04/23 11:30 AB [id number]) Therapeutic Exercises Supine Exercises abdominal bracing Supine Exercise Name without and briefly with trial of bent knee fall out X 2 Reps/Minutes 3 minutes Comments verbal and tactile cues, increased difficulty with bracing figure 4 stretch Side bilateral Reps/Minutes 60 second X1 Stretch Supine Exercise Name Piriformis Side bilateral Reps/Minutes 60 seconds X2 each LE Comments Pt had to be reminded to hold exercise for 30 sec if able Sidelying Exercises reverse clamshell Side bilateral Reps/Minutes X15 Comments verbal cues Sitting Exercises breathing from diaphragm Sitting Exercise Name Patient ed to perform while riding in car to relax muscles and decrease manpreet Resistance pillow under ue's as tactile cue for breathing from diaphragm Reps/Minutes 4 min Comments VC for hand on chest and then with pillows under UE's Standing Exercises standing hip flexion with band Standing Exercise Name * initiated seated then performed standing with UE support Side bilateral Resistance level 2 latex free band Reps/Minutes X5 seated then X 10 standing each UE Comments band looped and knotted, Verbal cues for exercise, patient ed to use UE sup Manual Therapy Treatment Soft Tissue Mobilization Lat Body Location right glute/piriformis Mobilization Type Cross-Friction,Rolling, Sustained Pressure Intensity/Depth Moderate Body Position Sidelying Manual Techniques MET for right AI left PI and pubic shot gun Reps/Duration 6 sec X 6 each PT-OP-T Assessment and Plan Start: 08/20/23 17:36 Freq: Status: Active Protocol: Document 09/04/23 08:11 AB (Rec: 09/04/23 11:30 AB [id number]) Physical Therapy Assessment Goals KELI Impairment 32% Short Term Goal (STG) Pt will improve KELI score to no greater than 24% in order to show improved functional capacity. STG Duration 10/03 [facility] Goal (LTG) Pt will improve KELI score to no greater than 4% in order to show improved functional capacity. LTG Duration 11/09 strength Short Term Goal (STG) Pt will be indep w/HEP for dec pain, strength and mobility. STG Duration 09/18 [facility] Goal (LTG) Pt will score at least 4+/5 on BLE MMT in order to allow her to participate in her ADLs w/ o inc hip/leg pain. LTG Duration 11/09 sleep Short Term Goal (STG) Pt will be educated and follow education re: sleep posture and positioning along w/shoe lift and orthotics (as needed) STG Duration 09/18 [employer] Room Hel[employer] Goal (LTG) Pt will be able to sleep fully through the night w/o waking d/t pain or waking up w/pain. LTG Duration 11/04 sitting Short Term Goal (STG) Pt will be able to sit and have full hip ROM in order to don/doff shoes/socks w/o inc pain. STG Duration 10/04 Engine Room Helper Goal (LTG) Pt will be able to sit long periods w/o inc pain in order to facilitate ease w/travel in fall and ability to knit LTG Duration 11/15 Assessment Summary Assessment Patient into session reporting feeling more balanced post previous session. Patient reports she feels great end of session. Increased difficulty with abdominal bracing this session, holds breath and difficulty holding a contraction. Physical Therapy Plan Frequency and Duration Frequency of Treatment 2x/Week Duration of treatment (weeks) 12 Plan of Care Start Date 08/24/23 Plan of Care End Date 11/16/23 Next Visit Focus/Plan Next Note Type Treatment Note Next Visit Plan Recheck pt education on HEP; hip & innominate mobility, resisted IR/ER ( add band to clamshell and reverse clamshell ), hip 4 way. revisit abdominal bracing/ possibly add Pallof press. Manual therapy
--- NOTE | 2023-09-07 10:22 | PT.OTN ---
Current Diagnoses Malignant neoplasm of upper-outer quadrant of right female breast (09/07/23) Sciatica, unspecified side (09/07/23) Estrogen receptor positive status [ER+] (09/07/23) Physical Therapy Treatment Note PT-OP-A Visit Information Start: 08/20/23 17:36 Freq: Status: Active Protocol: Document 09/07/23 09:04 [facility] (Rec: 09/07/23 10:22 [facility] [id number]) Out-Patient Physical Therapy Visit Information Visit Information Visit Type Treatment Note Visit Note 08/13 Visit [email or web address] Access Code: [email or web address] Visit Start Time 09:05 Visit Stop Time 09:45 Visit Number 5 Number of CORK SL[employer]S SAWYER Visits 0 PT-OP-B Current Condition Start: 08/20/23 17:36 Freq: Status: Active Protocol: Document 08/24/23 13:00 [facility] (Rec: 08/24/23 14:35 [facility] [id number]) Current Condition History of Current Condition Onset Date Apr Current Complaints R leg and buttocks pain History of Current Condition Pt reports she started having leg pain in Apr and just came out of the blue one day. She has had history of sciatica 2.5 years ago. Pt rpeorts last time it was her R leg also. Last time, eventually went to chiro and massage therapy. It lasted 4 months. She started seeing the chiro about 2 months ago. Chiro attributes piriformis. This time, she has found soem [employer] exercsies and chiro approved them but isn't sure she is doing them correctly. Occ, when she has a lot of pain, she does the clamshell but feels like it is just focusing on the exercise distracts her. Las stephanieouple of months has felt like L arch has fallen and when she is walking gets pain in arch and even sitting sometimes in bottom of foot. L foot gets swollen. Denies numbness or tingling. 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 Still hs 3 more months (done 3 others) of oral meds. 2020 breast cancer dx and had lumpectomy and is showing neg for further cancer . Dizziness with standing up. She has lost a lot of wt with keto diet for over a year. Was on BP med until Mar and is now on every other day dose. Feels good when get into bed and wakes up at 4 am so uncomfortable. Sleeps with pillow btwn knees but loses it by 4 am. No xrays done yet. Pt does have hx of B ovary removal and hysterectomy in 1996 with significant abodminal scar. She notes no GI distress when questioned, but does note heat pack to abdomen can help relieve pain Treatment Goals Patient/Caregiver Goals RV trips w/o pain. Has big trip in fall planned, get shoes/socks on easier, be able to sit to knit, sleep better PT-OP-C Subjective Start: 08/20/23 17:36 Freq: Status: Active Protocol: Document 09/07/23 09:04 [facility] (Rec: 09/07/23 10:22 [facility] [id number]) OP-PT Subjective Patient Comments Patient Comments Pt reports leg pain mild. hasn 't tried marches w/her new bands but bought her own since she had trouble w/tying the pain. Pain in R ant hip when getting up PT-OP-F Manual Assessment Start: 08/20/23 17:36 Freq: Status: Active Protocol: Document 08/24/23 13:00 [facility] (Rec: 08/24/23 14:35 [facility] [id number]) Manual Assessments Joint Mobility Assessment Joint Mobility Assessment dec hip abd mobility PT-OP-J Posture/Palpation/Skin Start: 08/20/23 17:36 Freq: Status: Active Protocol: Document 08/24/23 13:00 [facility] (Rec: 08/24/23 14:35 [facility] [id number]) Posture Evaluation Comments Posture Comments Wt shifted to L, L knee valgus , R foot turned, R rot, R pelvic shear; R iliac crest elevated & greater troch PT-OP-K Range of Motion Start: 08/20/23 17:36 Freq: Status: Active Protocol: Document 08/24/23 13:00 [facility] (Rec: 08/24/23 14:35 [facility] [id number]) Lumbar Spine Range of Motion Lumbar Spine Active Percentage Flexion 75 Extension 75 Rotation Left 80 Rotation Right 60 Lateral Flexion Left 90 Lateral Flexion Right 50 Comments pain B buttocks flex/ex PT-OP-L Special Tests Start: 08/20/23 17:36 Freq: Status: Active Protocol: Document 08/24/23 13:00 [facility] (Rec: 08/24/23 14:35 [facility] [id number]) Special Tests Lumbar Spine Special Tests march Test Results pos L Slump Test Results pos R PT-OP-M Strength Start: 08/20/23 17:36 Freq: Status: Active Protocol: Document 08/24/23 13:00 [facility] (Rec: 08/24/23 14:35 [facility] [id number]) Hip Strength Hip Manual Muscle Testing Right Flexion (L2) 4- Good- Abduction 3+ Fair+ External Rotation 4 Good Internal Rotation 4- Good- Left Flexion (L2) 4- Good- Abduction 4- Good- Adduction 4- Good- External Rotation 4- Good- Internal Rotation 4- Good- PT-OP-Q Treatments Start: 08/20/23 17:36 Freq: Status: Active Protocol: Document 09/07/23 09:04 [facility] (Rec: 09/07/23 10:22 [facility] [id number]) Therapeutic Exercises Sidelying Exercises reverse clamshell Side bilateral Reps/Minutes 10 Comments verbal cues clamshells Side bilateral Reps/Minutes 10 Standing Exercises standing hip flexion with band Side bilateral Equipment Used light green (pt own bands) Reps/Minutes 10 Comments hand on rail Manual Therapy Treatment Soft Tissue Mobilization Add Body Location R Add jayden, longus and iliacus Mobilization Type Rolling,Sustained Pressure Intensity/Depth Moderate Body Position Hooklying Comments w/ER Lat Body Location R lat glute & TFL Mobilization Type Rolling,Sustained Pressure Intensity/Depth Moderate Body Position Hooklying Comments w/ER Joint Mobilizations innominate Comments R ER FM hooklying Hip Comments R inf glide and ER free the ball FM in hooklying R lat glide in hooklying Neuro Re-Education Treatment Other Activities facilitation Reps/Duration 2 min Comments manual facilitation w/traction and PT supporting leg (R flex , add, ER, DF pattern) PT-OP-T Assessment and Plan Start: 08/20/23 17:36 Freq: Status: Active Protocol: Document 09/07/23 09:04 [facility] (Rec: 09/07/23 10:22 [facility] [id number]) Physical Therapy Assessment Goals KELI Impairment 32% Short Term Goal (STG) Pt will improve KELI score to no greater than 24% in order to show improved functional capacity. STG Duration 10/03 Custodial Goal (LTG) Pt will improve KELI score to no greater than 4% in order to show improved functional capacity. LTG Duration 11/09 strength Short Term Goal (STG) Pt will be indep w/HEP for dec pain, strength and mobility. STG Duration 09/18 Life Insurance Actuary Goal (LTG) Pt will score at least 4+/5 on BLE MMT in order to allow her to participate in her ADLs w/ o inc hip/leg pain. LTG Duration 11/09 sleep Short Term Goal (STG) Pt will be educated and follow education re: sleep posture and positioning along w/shoe lift and orthotics (as needed) STG Duration 09/18 Custodial Goal (LTG) Pt will be able to sleep fully through the night w/o waking d/t pain or waking up w/pain. LTG Duration 11/04 sitting Short Term Goal (STG) Pt will be able to sit and have full hip ROM in order to don/doff shoes/socks w/o inc pain. STG Duration 10/04 Custodial Goal (LTG) Pt will be able to sit long periods w/o inc pain in order to facilitate ease w/travel in fall and ability to knit LTG Duration 11/15 Assessment Summary Assessment Pt reports feeling good after manual treatment and had much improved ER ROM of R hip which allowed for improved ease w/ clamshell exercise w/o rolling back. Physical Therapy Plan Frequency and Duration Frequency of Treatment 2x/Week Duration of treatment (weeks) 12 Plan of Care Start Date 08/24/23 Plan of Care End Date 11/16/23 Next Visit Focus/Plan Next Note Type Treatment Note Next Visit Plan cont to work on R hip and innominate/lumbar mobility; advance core stability
--- NOTE | 2023-09-16 09:00 | PT.OTN ---
Current Diagnoses Malignant neoplasm of upper-outer quadrant of right female breast (09/16/23) Sciatica, unspecified side (09/16/23) Estrogen receptor positive status [ER+] (09/16/23) Physical Therapy Treatment Note PT-OP-A Visit Information Start: 08/20/23 17:36 Freq: Status: Active Protocol: Document 09/16/23 08:19 [facility] (Rec: 09/16/23 09:05 [facility] [id number]) Out-Patient Physical Therapy Visit Information Visit Information Visit Type Treatment Note Visit Note 09/13 Visit Start Time 08:19 Visit Stop Time 09:00 Visit Number 6 Number of EAR NOSE THROAT PHYSICIAN Visits 1 PT-OP-B Current Condition Start: 08/20/23 17:36 Freq: Status: Active Protocol: Document 08/24/23 13:00 [facility] (Rec: 08/24/23 14:35 [facility] [id number]) Current Condition History of Current Condition Onset Date Apr Current Complaints R leg and buttocks pain History of Current Condition Pt reports she started having leg pain in Apr and just came out of the blue one day. She has had history of sciatica 2.5 years ago. Pt rpeorts last time it was her R leg also. Last time, eventually went to chiro and massage therapy. It lasted 4 months. She started seeing the chiro about 2 months ago. Chiro attributes piriformis. This time, she has found soem youtube exercsies and chiro approved them but isn't sure she is doing them correctly. Occ, when she has a lot of pain, she does the clamshell but feels like it is just focusing on the exercise distracts her. Las k[place] of months has felt like L arch has fallen and when she is walking gets pain in arch and even sitting sometimes in bottom of foot. L foot gets swollen. Denies numbness or tingling. 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 Still hs 3 more months (done 3 others) of oral meds. 2020 breast cancer dx and had lumpectomy and is showing neg for further cancer . Dizziness with standing up. She has lost a lot of wt with keto diet for over a year. Was on BP med until Mar and is now on every other day dose. Feels good when get into bed and wakes up at 4 am so uncomfortable. Sleeps with pillow btwn knees but loses it by 4 am. No xrays done yet. Pt does have hx of B ovary removal and hysterectomy in 1996 with significant abodminal scar. She notes no GI distress when questioned, but does note heat pack to abdomen can help relieve pain Treatment Goals Patient/Caregiver Goals RV trips w/o pain. Has big trip in fall planned, get shoes/socks on easier, be able to sit to knit, sleep better PT-OP-C Subjective Start: 08/20/23 17:36 Freq: Status: Active Protocol: Document 09/16/23 08:19 SP (Rec: 09/16/23 09:05 SP [id number]) OP-PT Subjective Patient Comments Patient Comments Pt reports R hip still bothersome and little back irritation but betting much better. PT-OP-F Manual Assessment Start: 08/20/23 17:36 Freq: Status: Active Protocol: Document 08/24/23 13:00 [facility] (Rec: 08/24/23 14:35 [facility] [id number]) Manual Assessments Joint Mobility Assessment Joint Mobility Assessment dec hip abd mobility PT-OP-J Posture/Palpation/Skin Start: 08/20/23 17:36 Freq: Status: Active Protocol: Document 08/24/23 13:00 [facility] (Rec: 08/24/23 14:35 [facility] [id number]) Posture Evaluation Comments Posture Comments Wt shifted to L, L knee valgus , R foot turned, R rot, R pelvic shear; R iliac crest elevated & greater troch PT-OP-K Range of Motion Start: 08/20/23 17:36 Freq: Status: Active Protocol: Document 08/24/23 13:00 [facility] (Rec: 08/24/23 14:35 [facility] [id number]) Lumbar Spine Range of Motion Lumbar Spine Active Percentage Flexion 75 Extension 75 Rotation Left 80 Rotation Right 60 Lateral Flexion Left 90 Lateral Flexion Right 50 Comments pain B buttocks flex/ex PT-OP-L Special Tests Start: 08/20/23 17:36 Freq: Status: Active Protocol: Document 08/24/23 13:00 [facility] (Rec: 08/24/23 14:35 [facility] [id number]) Special Tests Lumbar Spine Special Tests march Test Results pos L Slump Test Results pos R PT-OP-M Strength Start: 08/20/23 17:36 Freq: Status: Active Protocol: Document 08/24/23 13:00 [facility] (Rec: 08/24/23 14:35 [facility] [id number]) Hip Strength Hip Manual Muscle Testing Right Flexion (L2) 4- Good- Abduction 3+ Fair+ External Rotation 4 Good Internal Rotation 4- Good- Left Flexion (L2) 4- Good- Abduction 4- Good- Adduction 4- Good- External Rotation 4- Good- Internal Rotation 4- Good- PT-OP-Q Treatments Start: 08/20/23 17:36 Freq: Status: Active Protocol: Document 09/16/23 08:19 SP (Rec: 09/16/23 09:05 SP [id number]) Therapeutic Exercises Supine Exercises figure 4 stretch Side bilateral Reps/Minutes 60 second X1 Stretch Supine Exercise Name Piriformis Side bilateral Reps/Minutes 60 seconds X2 each LE Comments Pt had to be reminded to hold exercise for 30 sec if able Standing Exercises standing hip flexion with band Side bilateral Equipment Used light green #1 (pt own bands) Reps/Minutes 10 Comments 1 hand on elevated table, stand side hip 4 way Standing Exercise Name ABD, ext (causing pain- stopped) modified HS curl instead Side bilateral Resistance TB #1 (own light green) Equipment Used bent over elevated table Reps/Minutes 15 Comments VC to avoid toeing out, elongated posture, knees // Manual Therapy Treatment Soft Tissue Mobilization Add Body Location R Add jayden, longus Mobilization Type Instrument Assisted,Rolling, Sustained Pressure Intensity/Depth Moderate Body Position Hooklying Comments w/ER and ed self use rolling pin seated Joint Mobilizations Hip Comments R inf glide and ER free the ball FM in hooklying PT-OP-T Assessment and Plan Start: 08/20/23 17:36 Freq: Status: Active Protocol: Document 09/16/23 08:19 SP (Rec: 09/16/23 09:05 SP [id number]) Physical Therapy Assessment Goals KELI Impairment 32% Short Term Goal (STG) Pt will improve KELI score to no greater than 24% in order to show improved functional capacity. STG Duration 10/03 Nursing Home Goal (LTG) Pt will improve KELI score to no greater than 4% in order to show improved functional capacity. LTG Duration 8/6 strength Short Term Goal (STG) Pt will be indep w/HEP for dec pain, strength and mobility. STG Duration 09/18 Nursing Home Goal (LTG) Pt will score at least 4+/5 on BLE MMT in order to allow her to participate in her ADLs w/ o inc hip/leg pain. LTG Duration 11/09 sleep Short Term Goal (STG) Pt will be educated and follow education re: sleep posture and positioning along w/shoe lift and orthotics (as needed) STG Duration 09/18 Crown Pouncer Goal (LTG) Pt will be able to sleep fully through the night w/o waking d/t pain or waking up w/pain. LTG Duration 11/04 sitting Short Term Goal (STG) Pt will be able to sit and have full hip ROM in order to don/doff shoes/socks w/o inc pain. STG Duration 10/04 Crown Pouncer Goal (LTG) Pt will be able to sit long periods w/o inc pain in order to facilitate ease w/travel in fall and ability to knit LTG Duration 11/15 Assessment Summary Assessment Pt reports good pain relief to R hip after manual with increase mobiltiy, ed for self performance use of rolling pin for carryover home. CUed trunk elongation and neutral spine bent over table resisted ther ex. Modified hip ext to parallel knees HS curl with good effort up into glut region. Physical Therapy Plan Frequency and Duration Frequency of Treatment 2x/Week Duration of treatment (weeks) 12 Plan of Care Start Date 08/24/23 Plan of Care End Date 11/16/23 Therapeutic Interventions Therapeutic Interventions Balance Training,Gait Training ,Home Exercise Program,Joint Mobilizations,Manual Therapy, Neuromuscular Re-education, Orthotic/Prosthetic Management ,Patient/Caregiver Education, Self-Care/Home Management,Soft Tissue Mobilization,Taping, Therapeutic Activities, Therapeutic Exercises Modalities Cold Pack/Ice Massage,Electric Stimulation,Hot Packs, Traction- Mechanical, Ultrasound Next Visit Focus/Plan Next Note Type Treatment Note Next Visit Plan cont to work on R hip and innominate/lumbar mobility; advance core stability
--- NOTE | 2023-09-22 16:07 | PT.OTN ---
Addendum entered and electronically signed by Moriah Solis, PT 09/24/23 08:20: PT direct supervision and direction to student PT Rufino Dunbar throughout session Original Note: Current Diagnoses Malignant neoplasm of upper-outer quadrant of right female breast (09/22/23) Sciatica, unspecified side (09/22/23) Estrogen receptor positive status [ER+] (09/22/23) Physical Therapy Treatment Note PT-OP-A Visit Information Start: 08/20/23 17:36 Freq: Status: Active Protocol: Document 09/22/23 10:30 J (Rec: 09/22/23 10:29 [id number]) Out-Patient Physical Therapy Visit Information Visit Information Visit Type Treatment Note Visit Note 10/13 Visit Start Time 09:51 Visit Stop Time 10:34 Visit Number 7 Number of HOOK AND EYE SEWING MACHINE OPERATOR Visits 0 PT-OP-B Current Condition Start: 08/20/23 17:36 Freq: Status: Active Protocol: Document 08/24/23 13:00 [facility] (Rec: 08/24/23 14:35 [facility] [id number]) Current Condition History of Current Condition Onset Date Apr Current Complaints R leg and buttocks pain History of Current Condition Pt reports she started having leg pain in Apr and just came out of the blue one day. She has had history of sciatica 2.5 years ago. Pt rpeorts last time it was her R leg also. Last time, eventually went to chiro and massage therapy. It lasted 4 months. She started seeing the chiro about 2 months ago. Chiro attributes piriformis. This time, she has found soem youtube exercsies and chiro approved them but isn't sure she is doing them correctly. Occ, when she has a lot of pain, she does the clamshell but feels like it is just focusing on the exercise distracts her. Las tcouple of months has felt like L arch has fallen and when she is walking gets pain in arch and even sitting sometimes in bottom of foot. L foot gets swollen. Denies numbness or tingling. 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 Still hs 3 more months (done 3 others) of oral meds. 2020 breast cancer dx and had lumpectomy and is showing neg for further cancer . Dizziness with standing up. She has lost a lot of wt with keto diet for over a year. Was on BP med until Mar and is now on every other day dose. Feels good when get into bed and wakes up at 4 am so uncomfortable. Sleeps with pillow btwn knees but loses it by 4 am. No xrays done yet. Pt does have hx of B ovary removal and hysterectomy in 1996 with significant abodminal scar. She notes no GI distress when questioned, but does note heat pack to abdomen can help relieve pain Treatment Goals Patient/Caregiver Goals RV trips w/o pain. Has big trip in fall planned, get shoes/socks on easier, be able to sit to knit, sleep better PT-OP-C Subjective Start: 08/20/23 17:36 Freq: Status: Active Protocol: Document 09/22/23 10:30 JG (Rec: 09/22/23 10:29 JG [id number]) OP-PT Subjective Patient Comments Patient Comments Pt added 2 new exercises to HEP. Rolling pin to roll out quad and self release technique using tennis ball agianst a wall. Pt states that she does not enjoy marching exercise and are takign BP every other day instead of everyday previously due to doctor recommendations. Also mentions that water intake is not great. Patient Reported Progress Improving PT-OP-F Manual Assessment Start: 08/20/23 17:36 Freq: Status: Active Protocol: Document 08/24/23 13:00 [facility] (Rec: 08/24/23 14:35 [facility] [id number]) Manual Assessments Joint Mobility Assessment Joint Mobility Assessment dec hip abd mobility PT-OP-J Posture/Palpation/Skin Start: 08/20/23 17:36 Freq: Status: Active Protocol: Document 08/24/23 13:00 [facility] (Rec: 08/24/23 14:35 [facility] [id number]) Posture Evaluation Comments Posture Comments Wt shifted to L, L knee valgus , R foot turned, R rot, R pelvic shear; R iliac crest elevated & greater troch PT-OP-K Range of Motion Start: 08/20/23 17:36 Freq: Status: Active Protocol: Document 08/24/23 13:00 [facility] (Rec: 08/24/23 14:35 [facility] [id number]) Lumbar Spine Range of Motion Lumbar Spine Active Percentage Flexion 75 Extension 75 Rotation Left 80 Rotation Right 60 Lateral Flexion Left 90 Lateral Flexion Right 50 Comments pain B buttocks flex/ex PT-OP-L Special Tests Start: 08/20/23 17:36 Freq: Status: Active Protocol: Document 08/24/23 13:00 [facility] (Rec: 08/24/23 14:35 [facility] [id number]) Special Tests Lumbar Spine Special Tests march Test Results pos L Slump Test Results pos R PT-OP-M Strength Start: 08/20/23 17:36 Freq: Status: Active Protocol: Document 08/24/23 13:00 [facility] (Rec: 08/24/23 14:35 [facility] [id number]) Hip Strength Hip Manual Muscle Testing Right Flexion (L2) 4- Good- Abduction 3+ Fair+ External Rotation 4 Good Internal Rotation 4- Good- Left Flexion (L2) 4- Good- Abduction 4- Good- Adduction 4- Good- External Rotation 4- Good- Internal Rotation 4- Good- PT-OP-Q Treatments Start: 08/20/23 17:36 Freq: Status: Active Protocol: Document 09/22/23 10:30 JG (Rec: 09/22/23 10:32 JG [id number]) Therapeutic Exercises Supine Exercises breathing from diaphragm Reps/Minutes 15 Comments Edu pt on proper hand placement and breathing technique. figure 4 stretch Side right Reps/Minutes 15 each Comments Cuing to keep back against table and utilizing hip and glute muscles Sitting Exercises Figure 4 stretch Side bilateral Reps/Minutes 15 each Comments Cuing to keep back stable and utilizing hip and glute muscles Standing Exercises standing marches Side bilateral Resistance # 1 band (self brought) Equipment Used # 1 band, table for stability Reps/Minutes 8 each Comments Pt was reassessed on posture and movement of exercise Other Exercises Ball roll out Side right Equipment Used Tennis ball Comments Went over proper technique with pt Manual Therapy Treatment Soft Tissue Mobilization Hamstring Body Location Semitentonosous, semimembranosous, bicep femoris Mobilization Type Rolling,Sustained Pressure Intensity/Depth Moderate Body Position Hooklying Gracillis Body Location R gracillis Mobilization Type Rolling,Sustained Pressure Intensity/Depth Moderate Body Position Hooklying Comments w/ER and flexion TFL Body Location R TFL Mobilization Type Rolling,Sustained Pressure Intensity/Depth Moderate Body Position Hooklying Comments w/ER and flexion Add Body Location R Add jayden, longus Mobilization Type Instrument Assisted,Rolling, Sustained Pressure Intensity/Depth Moderate Body Position Hooklying Comments w/ER and flexion Joint Mobilizations Hip Comments R inf glide and ER free the ball FM in hooklying PT-OP-T Assessment and Plan Start: 08/20/23 17:36 Freq: Status: Active Protocol: Document 09/22/23 10:30 JG (Rec: 09/22/23 11:29 JG [id number]) Physical Therapy Assessment Goals KELI Impairment 32% Short Term Goal (STG) Pt will improve KELI score to no greater than 24% in order to show improved functional capacity. STG Duration 10/03 Senior Living Goal (LTG) Pt will improve KELI score to no greater than 4% in order to show improved functional capacity. LTG Duration 11/09 strength Short Term Goal (STG) Pt will be indep w/HEP for dec pain, strength and mobility. STG Duration 09/18 Bander And Cellophaner Helper Machine Goal (LTG) Pt will score at least 4+/5 on BLE MMT in order to allow her to participate in her ADLs w/ o inc hip/leg pain. LTG Duration 11/09 sleep Short Term Goal (STG) Pt will be educated and follow education re: sleep posture and positioning along w/shoe lift and orthotics (as needed) STG Duration 09/18 Senior Living Goal (LTG) Pt will be able to sleep fully through the night w/o waking d/t pain or waking up w/pain. LTG Duration 11/04 sitting Short Term Goal (STG) Pt will be able to sit and have full hip ROM in order to don/doff shoes/socks w/o inc pain. STG Duration Achievied 09/21 Bander And Cellophaner Helper Machine Goal (LTG) Pt will be able to sit long periods w/o inc pain in order to facilitate ease w/travel in fall and ability to knit LTG Duration 11/15 Progress Towards Goals Progress Towards Goals Progressing Toward Goals Progress Comments Pt has enough ER to don/doff socks and shoes w/o inc in pain 09/22/2023 Assessment Summary Assessment Pt reports she is feeling better with combined hip movments after manual therapy and showed increase in mobility involving ER and flexion. Pt was edu on diaphragmatic breathing from supine to ensure proper hand placement. Pt needed increased time for diaphragamatic due to coordination and was recommended to perform exercise in supine and requried manual facilitation. Physical Therapy Plan Frequency and Duration Frequency of Treatment 2x/Week Duration of treatment (weeks) 12 Plan of Care Start Date 08/24/23 Plan of Care End Date 11/16/23 Therapeutic Interventions Therapeutic Interventions Balance Training,Gait Training ,Home Exercise Program,Joint Mobilizations,Manual Therapy, Neuromuscular Re-education, Orthotic/Prosthetic Management ,Patient/Caregiver Education, Self-Care/Home Management,Soft Tissue Mobilization,Taping, Therapeutic Activities, Therapeutic Exercises Modalities Cold Pack/Ice Massage,Electric Stimulation,Hot Packs, Traction- Mechanical, Ultrasound Next Visit Focus/Plan Next Note Type Treatment Note Next Visit Plan Assess passenger seat of car and ensure comfortablility in car, PNF, manual therapy. Assess HEP exercises
--- NOTE | 2023-09-22 18:02 | PT.OTN ---
Addendum entered and electronically signed by Moriah Solis, PT 09/24/23 08:19: PT direct supervision and direction to student PT Rufino Dunbar throughout session Original Note: Current Diagnoses Malignant neoplasm of upper-outer quadrant of right female breast (09/22/23) Sciatica, unspecified side (09/22/23) Estrogen receptor positive status [ER+] (09/22/23) Physical Therapy Treatment Note PT-OP-A Visit Information Start: 08/20/23 17:36 Freq: Status: Active Protocol: Document 09/22/23 10:30 J (Rec: 09/22/23 10:29 [id number]) Out-Patient Physical Therapy Visit Information Visit Information Visit Type Treatment Note Visit Note 10/13 Visit Start Time 09:51 Visit Stop Time 10:34 Visit Number 7 Number of PRINTING TABLE HAND Visits 0 PT-OP-B Current Condition Start: 08/20/23 17:36 Freq: Status: Active Protocol: Document 08/24/23 13:00 [facility] (Rec: 08/24/23 14:35 [facility] [id number]) Current Condition History of Current Condition Onset Date Apr Current Complaints R leg and buttocks pain History of Current Condition Pt reports she started having leg pain in Apr and just came out of the blue one day. She has had history of sciatica 2.5 years ago. Pt rpeorts last time it was her R leg also. Last time, eventually went to chiro and massage therapy. It lasted 4 months. She started seeing the chiro about 2 months ago. Chiro attributes piriformis. This time, she has found soem youtube exercsies and chiro approved them but isn't sure she is doing them correctly. Occ, when she has a lot of pain, she does the clamshell but feels like it is just focusing on the exercise distracts her. Las tcouple of months has felt like L arch has fallen and when she is walking gets pain in arch and even sitting sometimes in bottom of foot. L foot gets swollen. Denies numbness or tingling. 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 Still hs 3 more months (done 3 others) of oral meds. 2020 breast cancer dx and had lumpectomy and is showing neg for further cancer . Dizziness with standing up. She has lost a lot of wt with keto diet for over a year. Was on BP med until Mar and is now on every other day dose. Feels good when get into bed and wakes up at 4 am so uncomfortable. Sleeps with pillow btwn knees but loses it by 4 am. No xrays done yet. Pt does have hx of B ovary removal and hysterectomy in 1996 with significant abodminal scar. She notes no GI distress when questioned, but does note heat pack to abdomen can help relieve pain Treatment Goals Patient/Caregiver Goals RV trips w/o pain. Has big trip in fall planned, get shoes/socks on easier, be able to sit to knit, sleep better PT-OP-C Subjective Start: 08/20/23 17:36 Freq: Status: Active Protocol: Document 09/22/23 10:30 JG (Rec: 09/22/23 10:29 JG [id number]) OP-PT Subjective Patient Comments Patient Comments Pt added 2 new exercises to HEP. Rolling pin to roll out quad and self release technique using tennis ball agianst a wall. Pt states that she does not enjoy marching exercise and are takign BP every other day instead of everyday previously due to doctor recommendations. Also mentions that water intake is not great. Patient Reported Progress Improving PT-OP-F Manual Assessment Start: 08/20/23 17:36 Freq: Status: Active Protocol: Document 08/24/23 13:00 [facility] (Rec: 08/24/23 14:35 [facility] [id number]) Manual Assessments Joint Mobility Assessment Joint Mobility Assessment dec hip abd mobility PT-OP-J Posture/Palpation/Skin Start: 08/20/23 17:36 Freq: Status: Active Protocol: Document 08/24/23 13:00 [facility] (Rec: 08/24/23 14:35 [facility] [id number]) Posture Evaluation Comments Posture Comments Wt shifted to L, L knee valgus , R foot turned, R rot, R pelvic shear; R iliac crest elevated & greater troch PT-OP-K Range of Motion Start: 08/20/23 17:36 Freq: Status: Active Protocol: Document 08/24/23 13:00 [facility] (Rec: 08/24/23 14:35 [facility] [id number]) Lumbar Spine Range of Motion Lumbar Spine Active Percentage Flexion 75 Extension 75 Rotation Left 80 Rotation Right 60 Lateral Flexion Left 90 Lateral Flexion Right 50 Comments pain B buttocks flex/ex PT-OP-L Special Tests Start: 08/20/23 17:36 Freq: Status: Active Protocol: Document 08/24/23 13:00 [facility] (Rec: 08/24/23 14:35 [facility] [id number]) Special Tests Lumbar Spine Special Tests march Test Results pos L Slump Test Results pos R PT-OP-M Strength Start: 08/20/23 17:36 Freq: Status: Active Protocol: Document 08/24/23 13:00 [facility] (Rec: 08/24/23 14:35 [facility] [id number]) Hip Strength Hip Manual Muscle Testing Right Flexion (L2) 4- Good- Abduction 3+ Fair+ External Rotation 4 Good Internal Rotation 4- Good- Left Flexion (L2) 4- Good- Abduction 4- Good- Adduction 4- Good- External Rotation 4- Good- Internal Rotation 4- Good- PT-OP-Q Treatments Start: 08/20/23 17:36 Freq: Status: Active Protocol: Document 09/22/23 10:30 JG (Rec: 09/22/23 10:32 JG [id number]) Therapeutic Exercises Supine Exercises breathing from diaphragm Reps/Minutes 15 Comments Edu pt on proper hand placement and breathing technique. figure 4 stretch Side right Reps/Minutes 15 each Comments Cuing to keep back against table and utilizing hip and glute muscles Sitting Exercises Figure 4 stretch Side bilateral Reps/Minutes 15 each Comments Cuing to keep back stable and utilizing hip and glute muscles Standing Exercises standing marches Side bilateral Resistance # 1 band (self brought) Equipment Used # 1 band, table for stability Reps/Minutes 8 each Comments Pt was reassessed on posture and movement of exercise Other Exercises Ball roll out Side right Equipment Used Tennis ball Comments Went over proper technique with pt Manual Therapy Treatment Soft Tissue Mobilization Hamstring Body Location Semitentonosous, semimembranosous, bicep femoris Mobilization Type Rolling,Sustained Pressure Intensity/Depth Moderate Body Position Hooklying Gracillis Body Location R gracillis Mobilization Type Rolling,Sustained Pressure Intensity/Depth Moderate Body Position Hooklying Comments w/ER and flexion TFL Body Location R TFL Mobilization Type Rolling,Sustained Pressure Intensity/Depth Moderate Body Position Hooklying Comments w/ER and flexion Add Body Location R Add jayden, longus Mobilization Type Instrument Assisted,Rolling, Sustained Pressure Intensity/Depth Moderate Body Position Hooklying Comments w/ER and flexion Joint Mobilizations Hip Comments R inf glide and ER free the ball FM in hooklying PT-OP-T Assessment and Plan Start: 08/20/23 17:36 Freq: Status: Active Protocol: Document 09/22/23 10:30 JG (Rec: 09/22/23 11:29 JG [id number]) Physical Therapy Assessment Goals KELI Impairment 32% Short Term Goal (STG) Pt will improve KELI score to no greater than 24% in order to show improved functional capacity. STG Duration 10/03 Senior Care Goal (LTG) Pt will improve KELI score to no greater than 4% in order to show improved functional capacity. LTG Duration 11/09 strength Short Term Goal (STG) Pt will be indep w/HEP for dec pain, strength and mobility. STG Duration 09/18 Equipment Superintendent Goal (LTG) Pt will score at least 4+/5 on BLE MMT in order to allow her to participate in her ADLs w/ o inc hip/leg pain. LTG Duration 11/09 sleep Short Term Goal (STG) Pt will be educated and follow education re: sleep posture and positioning along w/shoe lift and orthotics (as needed) STG Duration 09/18 Senior Care Goal (LTG) Pt will be able to sleep fully through the night w/o waking d/t pain or waking up w/pain. LTG Duration 11/04 sitting Short Term Goal (STG) Pt will be able to sit and have full hip ROM in order to don/doff shoes/socks w/o inc pain. STG Duration Achievied 09/21 Equipment Superintendent Goal (LTG) Pt will be able to sit long periods w/o inc pain in order to facilitate ease w/travel in fall and ability to knit LTG Duration 11/15 Progress Towards Goals Progress Towards Goals Progressing Toward Goals Progress Comments Pt has enough ER to don/doff socks and shoes w/o inc in pain 09/22/2023 Assessment Summary Assessment Pt reports she is feeling better with combined hip movments after manual therapy and showed increase in mobility involving ER and flexion. Pt was edu on diaphragmatic breathing from supine to ensure proper hand placement. Pt needed increased time for diaphragamatic due to coordination and was recommended to perform exercise in supine and requried manual facilitation. Physical Therapy Plan Frequency and Duration Frequency of Treatment 2x/Week Duration of treatment (weeks) 12 Plan of Care Start Date 08/24/23 Plan of Care End Date 11/16/23 Therapeutic Interventions Therapeutic Interventions Balance Training,Gait Training ,Home Exercise Program,Joint Mobilizations,Manual Therapy, Neuromuscular Re-education, Orthotic/Prosthetic Management ,Patient/Caregiver Education, Self-Care/Home Management,Soft Tissue Mobilization,Taping, Therapeutic Activities, Therapeutic Exercises Modalities Cold Pack/Ice Massage,Electric Stimulation,Hot Packs, Traction- Mechanical, Ultrasound Next Visit Focus/Plan Next Note Type Treatment Note Next Visit Plan Assess passenger seat of car and ensure comfortablility in car, PNF, manual therapy. Assess HEP exercises
--- NOTE | 2023-09-24 12:32 | PT.OTN ---
Current Diagnoses Malignant neoplasm of upper-outer quadrant of right female breast (09/24/23) Sciatica, unspecified side (09/24/23) Estrogen receptor positive status [ER+] (09/24/23) Physical Therapy Treatment Note PT-OP-A Visit Information Start: 08/20/23 17:36 Freq: Status: Active Protocol: Document 09/24/23 08:57 [facility] (Rec: 09/24/23 12:32 [facility] [id number]) Out-Patient Physical Therapy Visit Information Visit Information Visit Type Progress Note Visit Start Time 10:38 Visit Stop Time 11:20 Visit Number 8 Number of SEO STRATEGIST Visits 0 PT-OP-B Current Condition Start: 08/20/23 17:36 Freq: Status: Active Protocol: Document 08/24/23 13:00 [facility] (Rec: 08/24/23 14:35 [facility] [id number]) Current Condition History of Current Condition Onset Date Apr Current Complaints R leg and buttocks pain History of Current Condition Pt reports she started having leg pain in Apr and just came out of the blue one day. She has had history of sciatica 2.5 years ago. Pt rpeorts last time it was her R leg also. Last time, eventually went to chiro and massage therapy. It lasted 4 months. She started seeing the chiro about 2 months ago. Chiro attributes piriformis. This time, she has found soem youtube exercsies and chiro approved them but isn't sure she is doing them correctly. Occ, when she has a lot of pain, she does the clamshell but feels like it is just focusing on the exercise distracts her. Las stephanieouple of months has felt like L arch has fallen and when she is walking gets pain in arch and even sitting sometimes in bottom of foot. L foot gets swollen. Denies numbness or tingling. 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 Still hs 3 more months (done 3 others) of oral meds. 2020 breast cancer dx and had lumpectomy and is showing neg for further cancer . Dizziness with standing up. She has lost a lot of wt with keto diet for over a year. Was on BP med until Mar and is now on every other day dose. Feels good when get into bed and wakes up at 4 am so uncomfortable. Sleeps with pillow btwn knees but loses it by 4 am. No xrays done yet. Pt does have hx of B ovary removal and hysterectomy in 1996 with significant abodminal scar. She notes no GI distress when questioned, but does note heat pack to abdomen can help relieve pain Treatment Goals Patient/Caregiver Goals RV trips w/o pain. Has big trip in fall planned, get shoes/socks on easier, be able to sit to knit, sleep better PT-OP-C Subjective Start: 08/20/23 17:36 Freq: Status: Active Protocol: Document 09/24/23 08:57 [facility] (Rec: 09/24/23 12:32 [id number]-PT Subjective Patient Comments Patient Comments Pt reports hurt a little bit in the evening but better yesterday. Hasn't done really much of the exercsies done on tu. PT-OP-F Manual Assessment Start: 08/20/23 17:36 Freq: Status: Active Protocol: Document 08/24/23 13:00 [facility] (Rec: 08/24/23 14:35 [id number] Manual Assessments Joint Mobility Assessment Joint Mobility Assessment dec hip abd mobility PT-OP-J Posture/Palpation/Skin Start: 08/20/23 17:36 Freq: Status: Active Protocol: Document 08/24/23 13:00 [facility] (Rec: 08/24/23 14:35 [facility] [id number]) Posture Evaluation Comments Posture Comments Wt shifted to L, L knee valgus , R foot turned, R rot, R pelvic shear; R iliac crest elevated & greater troch PT-OP-K Range of Motion Start: 08/20/23 17:36 Freq: Status: Active Protocol: Document 08/24/23 13:00 [facility] (Rec: 08/24/23 14:35 [facility] [id number]) Lumbar Spine Range of Motion Lumbar Spine Active Percentage Flexion 75 Extension 75 Rotation Left 80 Rotation Right 60 Lateral Flexion Left 90 Lateral Flexion Right 50 Comments pain B buttocks flex/ex PT-OP-L Special Tests Start: 08/20/23 17:36 Freq: Status: Active Protocol: Document 08/24/23 13:00 [facility] (Rec: 08/24/23 14:35 [facility] [id number]) Special Tests Lumbar Spine Special Tests march Test Results pos L Slump Test Results pos R PT-OP-M Strength Start: 08/20/23 17:36 Freq: Status: Active Protocol: Document 09/24/23 08:57 [facility] (Rec: 09/24/23 12:32 [id number] Hip Strength Hip Manual Muscle Testing Right Flexion (L2) 4 Good Extension (S1) 3+ Fair+ Abduction 4 Good Adduction 5 Normal External Rotation 4+ Good+ Internal Rotation 5 Normal Comments pain ext Left Flexion (L2) 4+ Good+ Extension (S1) 4 Good Abduction 4- Good- External Rotation 4- Good- Internal Rotation 5 Normal PT-OP-Q Treatments Start: 08/20/23 17:36 Freq: Status: Active Protocol: Document 09/24/23 08:57 [facility] (Rec: 09/24/23 12:32 [id number] Therapeutic Exercises Other Exercises isometrics Other Exercise Name MMT LEs Side bilateral Therapeutic Activity Therapeutic Activity car positioning Reps/Minutes 8 min Comments Use of towel and pillow for support of buttocks and back in car and shown how to use these and filli n space. Manual Therapy Treatment Joint Mobilizations sacrum Body Position Sitting Comments PA R FM lumbar Body Position Sitting Comments upglide R L5 FM innominate Comments R abd & flex FM Hip Comments R abd and inf glide FM PT-OP-T Assessment and Plan Start: 08/20/23 17:36 Freq: Status: Active Protocol: Document 09/24/23 08:57 [facility] (Rec: 09/24/23 12:32 [facility] [id number]) Physical Therapy Assessment Goals KELI Impairment 32% Short Term Goal (STG) Pt will improve KELI score to no greater than 24% in order to show improved functional capacity. 09/23-36% STG Duration 10/03 Group Home Goal (LTG) Pt will improve KELI score to no greater than 4% in order to show improved functional capacity. LTG Duration 11/09 strength Short Term Goal (STG) Pt will be indep w/HEP for dec pain, strength and mobility. STG Duration achieved 09/23 advancing as able Group Home Goal (LTG) Pt will score at least 4+/5 on BLE MMT in order to allow her to participate in her ADLs w/ o inc hip/leg pain. 09/23-improved LTG Duration 11/09 sleep Short Term Goal (STG) Pt will be educated and follow education re: sleep posture and positioning along w/shoe lift and orthotics (as needed) STG Duration achieved Group Home Goal (LTG) Pt will be able to sleep fully through the night w/o waking d/t pain or waking up w/pain. 09/23- still not comfortable in bed. Wakes up when she has to move. SLeeps 11-130/2; very disturbed LTG Duration 11/04 sitting Short Term Goal (STG) Pt will be able to sit and have full hip ROM in order to don/doff shoes/socks w/o inc pain. STG Duration Achievied 09/21 Group Home Goal (LTG) Pt will be able to sit long periods w/o inc pain in order to facilitate ease w/travel in fall and ability to knit 09/23-pain in car 09/23-can sit longer now -can do about 30-45 min before getting up; car painful but truck okay LTG Duration 11/15 Assessment Summary Assessment Pt reports improvement w/ functional mobility and has improved strength and ROM of R hip. Giovany moise is having pain w/extended sitting but reports it is better and she can now sit more. Improved pain in seated slump position after manual. Physical Therapy Plan Frequency and Duration Frequency of Treatment 2x/Week Duration of treatment (weeks) 12 Plan of Care Start Date 08/24/23 Plan of Care End Date 11/16/23 Therapeutic Interventions Therapeutic Interventions Balance Training,Gait Training ,Home Exercise Program,Joint Mobilizations,Manual Therapy, Neuromuscular Re-education, Orthotic/Prosthetic Management ,Patient/Caregiver Education, Self-Care/Home Management,Soft Tissue Mobilization,Taping, Therapeutic Activities, Therapeutic Exercises Modalities Cold Pack/Ice Massage,Electric Stimulation,Hot Packs, Traction- Mechanical, Ultrasound Next Visit Focus/Plan Next Note Type Treatment Note Next Visit Plan PNF, manual therapy. recheck HEP exercises, coccyx
--- NOTE | 2023-09-29 17:57 | PT.OTN ---
Addendum entered and electronically signed by Moriah Solis, PT 09/30/23 12:20: PT direct supervision and direction to student PT Rufino Dunbar throughout session Original Note: Current Diagnoses Malignant neoplasm of upper-outer quadrant of right female breast (09/29/23) Sciatica, unspecified side (09/29/23) Estrogen receptor positive status [ER+] (09/29/23) Physical Therapy Treatment Note PT-OP-A Visit Information Start: 08/20/23 17:36 Freq: Status: Active Protocol: Document 09/29/23 11:19 J (Rec: 09/29/23 13:08 [id number]) Out-Patient Physical Therapy Visit Information Visit Information Visit Type Treatment Note Visit Start Time 11:19 Visit Stop Time 12:00 Visit Number 9 Number of DIRECTOR OF STRATEGY & MOBILE Visits 0 PT-OP-B Current Condition Start: 08/20/23 17:36 Freq: Status: Active Protocol: Document 08/24/23 13:00 [facility] (Rec: 08/24/23 14:35 [facility] [id number]) Current Condition History of Current Condition Onset Date Apr Current Complaints R leg and buttocks pain History of Current Condition Pt reports she started having leg pain in Apr and just came out of the blue one day. She has had history of sciatica 2.5 years ago. Pt rpeorts last time it was her R leg also. Last time, eventually went to chiro and massage therapy. It lasted 4 months. She started seeing the chiro about 2 months ago. Chiro attributes piriformis. This time, she has found soem youtube exercsies and chiro approved them but isn't sure she is doing them correctly. Occ, when she has a lot of pain, she does the clamshell but feels like it is just focusing on the exercise distracts her. Las tcouple of months has felt like L arch has fallen and when she is walking gets pain in arch and even sitting sometimes in bottom of foot. L foot gets swollen. Denies numbness or tingling. 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 Still hs 3 more months (done 3 others) of oral meds. 2020 breast cancer dx and had lumpectomy and is showing neg for further cancer . Dizziness with standing up. She has lost a lot of wt with keto diet for over a year. Was on BP med until Mar and is now on every other day dose. Feels good when get into bed and wakes up at 4 am so uncomfortable. Sleeps with pillow btwn knees but loses it by 4 am. No xrays done yet. Pt does have hx of B ovary removal and hysterectomy in 1996 with significant abodminal scar. She notes no GI distress when questioned, but does note heat pack to abdomen can help relieve pain Treatment Goals Patient/Caregiver Goals RV trips w/o pain. Has big trip in fall planned, get shoes/socks on easier, be able to sit to knit, sleep better PT-OP-C Subjective Start: 08/20/23 17:36 Freq: Status: Active Protocol: Document 09/29/23 11:19 [facility] (Rec: 09/29/23 13:07 J [id number]) OP-PT Subjective Patient Comments Patient Comments Pt states that since last Thr hip has hurt a lot. Has been taking acetaminophen. Pain is in hip and glute. Pain during sitting is also worse since . Patient Reported Progress Worse PT-OP-F Manual Assessment Start: 08/20/23 17:36 Freq: Status: Active Protocol: Document 08/24/23 13:00 [facility] (Rec: 08/24/23 14:35 [facility] [id number]) Manual Assessments Joint Mobility Assessment Joint Mobility Assessment dec hip abd mobility PT-OP-J Posture/Palpation/Skin Start: 08/20/23 17:36 Freq: Status: Active Protocol: Document 08/24/23 13:00 [facility] (Rec: 08/24/23 14:35 [facility] [id number]) Posture Evaluation Comments Posture Comments Wt shifted to L, L knee valgus , R foot turned, R rot, R pelvic shear; R iliac crest elevated & greater troch PT-OP-K Range of Motion Start: 08/20/23 17:36 Freq: Status: Active Protocol: Document 08/24/23 13:00 [facility] (Rec: 08/24/23 14:35 [facility] [id number]) Lumbar Spine Range of Motion Lumbar Spine Active Percentage Flexion 75 Extension 75 Rotation Left 80 Rotation Right 60 Lateral Flexion Left 90 Lateral Flexion Right 50 Comments pain B buttocks flex/ex PT-OP-L Special Tests Start: 08/20/23 17:36 Freq: Status: Active Protocol: Document 08/24/23 13:00 [facility] (Rec: 08/24/23 14:35 [facility] [id number]) Special Tests Lumbar Spine Special Tests march Test Results pos L Slump Test Results pos R PT-OP-M Strength Start: 08/20/23 17:36 Freq: Status: Active Protocol: Document 09/24/23 08:57 [facility] (Rec: 09/24/23 12:32 [facility] [id number]) Hip Strength Hip Manual Muscle Testing Right Flexion (L2) 4 Good Extension (S1) 3+ Fair+ Abduction 4 Good Adduction 5 Normal External Rotation 4+ Good+ Internal Rotation 5 Normal Comments pain ext Left Flexion (L2) 4+ Good+ Extension (S1) 4 Good Abduction 4- Good- External Rotation 4- Good- Internal Rotation 5 Normal PT-OP-Q Treatments Start: 08/20/23 17:36 Freq: Status: Active Protocol: Document 09/29/23 11:19 [facility] (Rec: 09/29/23 13:07 [facility] [id number]) Therapeutic Exercises Sidelying Exercises reverse clamshell Side bilateral Equipment Used lvl 1 band Reps/Minutes 12 Comments Pt needs v/c in order keep hips rotated fwd clamshells Side bilateral Reps/Minutes 12 Comments Pt needs v/c in order keep hips rotated fwd Standing Exercises hip 4 way Side bilateral Resistance Sea glass theraband Equipment Used Sea glass theraband Reps/Minutes 10 ea Comments Pt needed v/c to keep trunk upright Manual Therapy Treatment Soft Tissue Mobilization Hamstring Body Location R Semitentonosous, semimembranosous, bicep femoris Mobilization Type Rolling,Sustained Pressure Intensity/Depth Moderate Body Position Hooklying Gracillis Body Location R gracillis Mobilization Type Rolling,Sustained Pressure Intensity/Depth Moderate Body Position Hooklying Comments w/ER and flexion TFL Body Location R TFL Mobilization Type Rolling,Sustained Pressure Intensity/Depth Moderate Body Position Hooklying Comments w/ER and flexion Add Body Location R Add jayden, longus Mobilization Type Instrument Assisted,Rolling, Sustained Pressure Intensity/Depth Moderate Body Position Hooklying Comments w/ER and flexion PT-OP-T Assessment and Plan Start: 08/20/23 17:36 Freq: Status: Active Protocol: Document 09/29/23 11:19 (Rec: 09/29/23 13:07 [id number]) Physical Therapy Assessment Goals KELI Impairment 32% Short Term Goal (STG) Pt will improve KELI score to no greater than 24% in order to show improved functional capacity. 09/23-36% STG Duration 10/03 Mcfp Goal (LTG) Pt will improve KELI score to no greater than 4% in order to show improved functional capacity. LTG Duration 11/09 strength Short Term Goal (STG) Pt will be indep w/HEP for dec pain, strength and mobility. STG Duration achieved 09/23 advancing as able Customer Support Manager Goal (LTG) Pt will score at least 4+/5 on BLE MMT in order to allow her to participate in her ADLs w/ o inc hip/leg pain. 09/23-improved LTG Duration 11/09 sleep Short Term Goal (STG) Pt will be educated and follow education re: sleep posture and positioning along w/shoe lift and orthotics (as needed) STG Duration achieved Mcfp Goal (LTG) Pt will be able to sleep fully through the night w/o waking d/t pain or waking up w/pain. 09/23- still not comfortable in bed. Wakes up when she has to move. SLeeps 11-130/2; very disturbed LTG Duration 11/04 sitting Short Term Goal (STG) Pt will be able to sit and have full hip ROM in order to don/doff shoes/socks w/o inc pain. STG Duration Achievied 09/21 Mcfp Goal (LTG) Pt will be able to sit long periods w/o inc pain in order to facilitate ease w/travel in fall and ability to knit 09/23-pain in car 09/23-can sit longer now -can do about 30-45 min before getting up; car painful but truck okay LTG Duration 11/15 Progress Towards Goals Progress Towards Goals Progressing Toward Goals Assessment Summary Assessment Pt reports increased hip pain w/functional mobility after Thrusday's treatment session. She is still having pain with extended periods of sitting, however, after exercises and STM today pt says that her symtoms have improved. Physical Therapy Plan Frequency and Duration Frequency of Treatment 2x/Week Duration of treatment (weeks) 12 Plan of Care Start Date 08/24/23 Plan of Care End Date 11/16/23 Next Visit Focus/Plan Next Note Type Treatment Note Next Visit Plan Focus on PNF of hip, HEP recall and modification if nessassary, manual therapy, STM for pain relief
--- NOTE | 2023-10-01 18:03 | PT.OTN ---
Current Diagnoses Malignant neoplasm of upper-outer quadrant of right female breast (10/01/23) Sciatica, unspecified side (10/01/23) Estrogen receptor positive status [ER+] (10/01/23) Physical Therapy Treatment Note PT-OP-A Visit Information Start: 08/20/23 17:36 Freq: Status: Active Protocol: Document 10/01/23 16:53 [facility] (Rec: 10/01/23 18:03 [facility] [id number]) Out-Patient Physical Therapy Visit Information Visit Information Visit Type Treatment Note Visit Start Time 16:51 Visit Stop Time 17:31 Visit Number 10 Number of MUSEUM EXHIBIT TECHNICIAN Visits 0 PT-OP-B Current Condition Start: 08/20/23 17:36 Freq: Status: Active Protocol: Document 08/24/23 13:00 [facility] (Rec: 08/24/23 14:35 [facility] [id number]) Current Condition History of Current Condition Onset Date Apr Current Complaints R leg and buttocks pain History of Current Condition Pt reports she started having leg pain in Apr and just came out of the blue one day. She has had history of sciatica 2.5 years ago. Pt rpeorts last time it was her R leg also. Last time, eventually went to chiro and massage therapy. It lasted 4 months. She started seeing the chiro about 2 months ago. Chiro attributes piriformis. This time, she has found soem youtube exercsies and chiro approved them but isn't sure she is doing them correctly. Occ, when she has a lot of pain, she does the clamshell but feels like it is just focusing on the exercise distracts her. [place] ste[place]ou[place] of months has felt like L arch has fallen and when she is walking gets pain in arch and even sitting sometimes in bottom of foot. L foot gets swollen. Denies numbness or tingling. 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 Still hs 3 more months (done 3 others) of oral meds. 2020 breast cancer dx and had lumpectomy and is showing neg for further cancer . Dizziness with standing up. She has lost a lot of wt with keto diet for over a year. Was on BP med until Mar and is now on every other day dose. Feels good when get into bed and wakes up at 4 am so uncomfortable. Sleeps with pillow btwn knees but loses it by 4 am. No xrays done yet. Pt does have hx of B ovary removal and hysterectomy in 1996 with significant abodminal scar. She notes no GI distress when questioned, but does note heat pack to abdomen can help relieve pain Treatment Goals Patient/Caregiver Goals RV trips w/o pain. Has big trip in fall planned, get shoes/socks on easier, be able to sit to knit, sleep better PT-OP-C Subjective Start: 08/20/23 17:36 Freq: Status: Active Protocol: Document 10/01/23 16:53 [facility] (Rec: 10/01/23 18:03 [facility] [id number]) OP-PT Subjective Patient Comments Patient Comments Much better since last session . Took tylenol yesterday because knew [facility] was going in car. Car PT-OP-F Manual Assessment Start: 08/20/23 17:36 Freq: Status: Active Protocol: Document 08/24/23 13:00 [facility] (Rec: 08/24/23 14:35 [facility] [id number]) Manual Assessments Joint Mobility Assessment Joint Mobility Assessment dec hip abd mobility PT-OP-J Posture/Palpation/Skin Start: 08/20/23 17:36 Freq: Status: Active Protocol: Document 08/24/23 13:00 [facility] (Rec: 08/24/23 14:35 [facility] [id number]) Posture Evaluation Comments Posture Comments Wt shifted to L, L knee valgus , R foot turned, R rot, R pelvic shear; R iliac crest elevated & greater troch PT-OP-K Range of Motion Start: 08/20/23 17:36 Freq: Status: Active Protocol: Document 08/24/23 13:00 [facility] (Rec: 08/24/23 14:35 [facility] [id number]) Lumbar Spine Range of Motion Lumbar Spine Active Percentage Flexion 75 Extension 75 Rotation Left 80 Rotation Right 60 Lateral Flexion Left 90 Lateral Flexion Right 50 Comments pain B buttocks flex/ex PT-OP-L Special Tests Start: 08/20/23 17:36 Freq: Status: Active Protocol: Document 08/24/23 13:00 [facility] (Rec: 08/24/23 14:35 [facility] [id number]) Special Tests Lumbar Spine Special Tests march Test Results pos L Slump Test Results pos R PT-OP-M Strength Start: 08/20/23 17:36 Freq: Status: Active Protocol: Document 09/24/23 08:57 [facility] (Rec: 09/24/23 12:32 [facility] [id number]) Hip Strength Hip Manual Muscle Testing Right Flexion (L2) 4 Good Extension (S1) 3+ Fair+ Abduction 4 Good Adduction 5 Normal External Rotation 4+ Good+ Internal Rotation 5 Normal Comments pain ext Left Flexion (L2) 4+ Good+ Extension (S1) 4 Good Abduction 4- Good- External Rotation 4- Good- Internal Rotation 5 Normal PT-OP-Q Treatments Start: 08/20/23 17:36 Freq: Status: Active Protocol: Document 10/01/23 16:53 [facility] (Rec: 10/01/23 18:03 [facility] [id number]) Therapeutic Exercises Sidelying Exercises open book Side bilateral Reps/Minutes 10 ea Comments cues for slow controlled motion Standing Exercises paloff press Side bilateral Equipment Used 2 orange bands Reps/Minutes 8 min total Comments inc time for set up and working on position Manual Therapy Treatment Consent Patient gave verbal consent for manual Yes treatment Soft Tissue Mobilization glute Body Location R superior Mobilization Type Rolling Intensity/Depth Moderate Body Position Sidelying lumbar Body Location R ES & QL Mobilization Type Rolling Intensity/Depth Moderate Body Position Sidelying Joint Mobilizations sacrum Grade II Body Position Sidelying Comments UPA R lumbar Grade II Body Position Sidelying Comments UPA R and transverse L T4 and 5 Self-Care/Home Management Treatment Education Other Education 3 min: discussed considering exercise classes for general fitness and encouraged to check if her insurance ever covers this. PT-OP-T Assessment and Plan Start: 08/20/23 17:36 Freq: Status: Active Protocol: Document 10/01/23 16:53 [facility] (Rec: 10/01/23 18:03 [facility] [id number]) Physical Therapy Assessment Goals KELI Impairment 32% Short Term Goal (STG) Pt will improve KELI score to no greater than 24% in order to show improved functional capacity. 6/20-36% STG Duration 10/03 [employer]oring Machine Feeder Goal (LTG) Pt will improve KELI score to no greater than 4% in order to show improved functional capacity. LTG Duration 8/6 strength Short Term Goal (STG) Pt will be indep w/HEP for dec pain, strength and mobility. STG Duration achieved 09/23 advancing as able Senior Care Goal (LTG) Pt will score at least 4+/5 on BLE MMT in order to allow her to participate in her ADLs w/ o inc hip/leg pain. 09/23-improved LTG Duration 11/09 sleep Short Term Goal (STG) Pt will be educated and follow education re: sleep posture and positioning along w/shoe lift and orthotics (as needed) STG Duration achieved Senior Care Goal (LTG) Pt will be able to sleep fully through the night w/o waking d/t pain or waking up w/pain. 09/23- still not comfortable in bed. Wakes up when she has to move. SLeeps 11-130/2; very disturbed LTG Duration 11/04 sitting Short Term Goal (STG) Pt will be able to sit and have full hip ROM in order to don/doff shoes/socks w/o inc pain. STG Duration Achievied 09/21 Senior Care Goal (LTG) Pt will be able to sit long periods w/o inc pain in order to facilitate ease w/travel in fall and ability to knit 09/23-pain in car 09/23-can sit longer now -can do about 30-45 min before getting up; car painful but truck okay LTG Duration 11/15 Assessment Summary Assessment Pt required cues through new exercises and initiatlly had pain w/paloff press but cues needed to avoid hip rot. She did have improved rotation R w /less pain after manual. Physical Therapy Plan Frequency and Duration Frequency of Treatment 2x/Week Duration of treatment (weeks) 12 Plan of Care Start Date 08/24/23 Plan of Care End Date 11/16/23 Next Visit Focus/Plan Next Note Type Treatment Note Next Visit Plan Focus on PNF of hip, core work & spinal mobility, manual therapy, STM for pain relief
--- NOTE | 2023-10-05 12:22 | PT.OTN ---
Current Diagnoses Malignant neoplasm of upper-outer quadrant of right female breast (10/05/23) Sciatica, unspecified side (10/05/23) Estrogen receptor positive status [ER+] (10/05/23) Physical Therapy Treatment Note PT-OP-A Visit Information Start: 08/20/23 17:36 Freq: Status: Active Protocol: Document 10/05/23 11:21 [facility] (Rec: 10/05/23 12:22 [facility] [id number]) Out-Patient Physical Therapy Visit Information Visit Information Visit Type Treatment Note Visit Note 06/13 Visit Start Time 11:22 Visit Stop Time 12: Visit Number 11 Number of AGRICULTURE ENGINEER Visits 0 PT-OP-B Current Condition Start: 08/20/23 17:36 Freq: Status: Active Protocol: Document 08/24/23 13:00 [facility] (Rec: 08/24/23 14:35 [facility] [id number]) Current Condition History of Current Condition Onset Date Apr Current Complaints R leg and buttocks pain History of Current Condition Pt reports she started having leg pain in Apr and just came out of the blue one day. She has had history of sciatica 2.5 years ago. Pt rpeorts last time it was her R leg also. Last time, eventually went to chiro and massage therapy. It lasted 4 months. She started seeing the chiro about 2 months ago. Chiro attributes piriformis. This time, she has found soem youtube exercsies and chiro approved them but isn't sure she is doing them correctly. Occ, when she has a lot of pain, she does the clamshell but feels like it is just focusing on the exercise distracts her. [place] of months has felt like L arch has fallen and when she is walking gets pain in arch and even sitting sometimes in bottom of foot. L foot gets swollen. Denies numbness or tingling. 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 Still hs 3 more months (done 3 others) of oral meds. 2020 breast cancer dx and had lumpectomy and is showing neg for further cancer . Dizziness with standing up. She has lost a lot of wt with keto diet for over a year. Was on BP med until Mar and is now on every other day dose. Feels good when get into bed and wakes up at 4 am so uncomfortable. Sleeps with pillow btwn knees but loses it by 4 am. No xrays done yet. Pt does have hx of B ovary removal and hysterectomy in 1996 with significant abodminal scar. She notes no GI distress when questioned, but does note heat pack to abdomen can help relieve pain Treatment Goals Patient/Caregiver Goals RV trips w/o pain. Has big trip in fall planned, get shoes/socks on easier, be able to sit to knit, sleep better PT-OP-C Subjective Start: 08/20/23 17:36 Freq: Status: Active Protocol: Document 10/05/23 11:21 [facility] (Rec: 10/05/23 12:22 [facility] [id number]) OP-PT Subjective Patient Comments Patient Comments pt reports compliance w/ exercises. Did some this AM PT-OP-F Manual Assessment Start: 08/20/23 17:36 Freq: Status: Active Protocol: Document 08/24/23 13:00 [facility] (Rec: 08/24/23 14:35 [facility] [id number]) Manual Assessments Joint Mobility Assessment Joint Mobility Assessment dec hip abd mobility PT-OP-J Posture/Palpation/Skin Start: 08/20/23 17:36 Freq: Status: Active Protocol: Document 08/24/23 13:00 [facility] (Rec: 08/24/23 14:35 [facility] [id number]) Posture Evaluation Comments Posture Comments Wt shifted to L, L knee valgus , R foot turned, R rot, R pelvic shear; R iliac crest elevated & greater troch PT-OP-K Range of Motion Start: 08/20/23 17:36 Freq: Status: Active Protocol: Document 08/24/23 13:00 [facility] (Rec: 08/24/23 14:35 [facility] [id number]) Lumbar Spine Range of Motion Lumbar Spine Active Percentage Flexion 75 Extension 75 Rotation Left 80 Rotation Right 60 Lateral Flexion Left 90 Lateral Flexion Right 50 Comments pain B buttocks flex/ex PT-OP-L Special Tests Start: 08/20/23 17:36 Freq: Status: Active Protocol: Document 08/24/23 13:00 [facility] (Rec: 08/24/23 14:35 [facility] [id number]) Special Tests Lumbar Spine Special Tests march Test Results pos L Slump Test Results pos R PT-OP-M Strength Start: 08/20/23 17:36 Freq: Status: Active Protocol: Document 09/24/23 08:57 [facility] (Rec: 09/24/23 12:32 [facility] [id number]) Hip Strength Hip Manual Muscle Testing Right Flexion (L2) 4 Good Extension (S1) 3+ Fair+ Abduction 4 Good Adduction 5 Normal External Rotation 4+ Good+ Internal Rotation 5 Normal Comments pain ext Left Flexion (L2) 4+ Good+ Extension (S1) 4 Good Abduction 4- Good- External Rotation 4- Good- Internal Rotation 5 Normal PT-OP-Q Treatments Start: 08/20/23 17:36 Freq: Status: Active Protocol: Document 10/05/23 11:21 [facility] (Rec: 10/05/23 12:22 [facility] [id number]) Therapeutic Exercises Supine Exercises Bridge Side bilateral Reps/Minutes 10 Comments cues for core engagement abdominal bracing Supine Exercise Name cues for core Side bilateral Equipment Used pt's light teal band Reps/Minutes 10 Sidelying Exercises open book Side bilateral Reps/Minutes 10 ea Comments cues for slow controlled motion Standing Exercises paloff press Side bilateral Equipment Used 2 orange bands Reps/Minutes 12 ea Comments cues for set up and core Therapeutic Activity Therapeutic Activity ground transfer Reps/Minutes 8 min Comments work on bear position up/down and had improved ability to go up/down after mult reps and cues for up/down w/o any concern for LOB Manual Therapy Treatment Soft Tissue Mobilization glute Body Location R superior & piriformis Mobilization Type Rolling Intensity/Depth Moderate Body Position Sidelying Comments w/ n glide lumbar Body Location R ES & QL Mobilization Type Rolling Intensity/Depth Moderate Body Position Sidelying Comments w/pelvic elevation/depression Hamstring Body Location R Semitentonosous, semimembranosous, bicep femoris Mobilization Type Rolling,Sustained Pressure Intensity/Depth Moderate Body Position Sidelying PT-OP-T Assessment and Plan Start: 08/20/23 17:36 Freq: Status: Active Protocol: Document 10/05/23 11:21 [facility] (Rec: 10/05/23 12:22 [facility] [id number]) Physical Therapy Assessment Goals KELI Impairment 32% Short Term Goal (STG) Pt will improve KELI score to no greater than 24% in order to show improved functional capacity. 09/23-36% STG Duration 10/03 [employer] Middleware Developer Goal (LTG) Pt will improve KELI score to no greater than 4% in order to show improved functional capacity. LTG Duration 11/09 strength Short Term Goal (STG) Pt will be indep w/HEP for dec pain, strength and mobility. STG Duration achieved 09/23 advancing as able Skilled Nursing Goal (LTG) Pt will score at least 4+/5 on BLE MMT in order to allow her to participate in her ADLs w/ o inc hip/leg pain. 09/23-improved LTG Duration 11/09 sleep Short Term Goal (STG) Pt will be educated and follow education re: sleep posture and positioning along w/shoe lift and orthotics (as needed) STG Duration achieved [employer] Middleware Developer Goal (LTG) Pt will be able to sleep fully through the night w/o waking d/t pain or waking up w/pain. 09/23- still not comfortable in bed. Wakes up when she has to move. SLeeps 11-130/2; very disturbed LTG Duration 11/04 sitting Short Term Goal (STG) Pt will be able to sit and have full hip ROM in order to don/doff shoes/socks w/o inc pain. STG Duration Achievied 09/21 [employer] Middleware Developer Goal (LTG) Pt will be able to sit long periods w/o inc pain in order to facilitate ease w/travel in fall and ability to knit 09/23-pain in car 09/23-can sit longer now -can do about 30-45 min before getting up; car painful but truck okay LTG Duration 11/15 Assessment Summary Assessment Pt did well with treatment today w/good carry over of exercises form but mod cues still needed w/open book but less w/paloff press. Pt reports feeling good when leaving. able to get up/down from ground w/o outside support after instruction. Physical Therapy Plan Frequency and Duration Frequency of Treatment 2x/Week Duration of treatment (weeks) 12 Plan of Care Start Date 08/24/23 Plan of Care End Date 11/16/23 Next Visit Focus/Plan Next Note Type Treatment Note Next Visit Plan Review paloff press & open book Focus on PNF of hip, core work & spinal mobility, manual therapy, STM for pain relief
--- NOTE | 2023-10-07 17:48 | PT.OTN ---
Addendum entered and electronically signed by Moriah Solis, PT 10/08/23 13:15: PT direct supervision and direction to student PT Rufino Dunbar throughout session Original Note: Current Diagnoses Malignant neoplasm of upper-outer quadrant of right female breast (10/07/23) Sciatica, unspecified side (10/07/23) Estrogen receptor positive status [ER+] (10/07/23) Physical Therapy Treatment Note PT-OP-A Visit Information Start: 08/20/23 17:36 Freq: Status: Active Protocol: Document 10/07/23 11:17 J (Rec: 10/07/23 15:19 J [id number]) Out-Patient Physical Therapy Visit Information Visit Information Visit Type Treatment Note Visit Note 07/14 Visit Start Time 11:17 Visit Stop Time 12:01 Visit Number 11 Number of AMERICAN HISTORY TEACHER Visits 0 PT-OP-B Current Condition Start: 08/20/23 17:36 Freq: Status: Active Protocol: Document 08/24/23 13:00 [facility] (Rec: 08/24/23 14:35 [facility] [id number]) Current Condition History of Current Condition Onset Date Apr Current Complaints R leg and buttocks pain History of Current Condition Pt reports she started having leg pain in Apr and just came out of the blue one day. She has had history of sciatica 2.5 years ago. Pt rpeorts last time it was her R leg also. Last time, eventually went to chiro and massage therapy. It lasted 4 months. She started seeing the chiro about 2 months ago. Chiro attributes piriformis. This time, she has found soem youtube exercsies and chiro approved them but isn't sure she is doing them correctly. Occ, when she has a lot of pain, she does the clamshell but feels like it is just focusing on the exercise distracts her. Las tcouple of months has felt like L arch has fallen and when she is walking gets pain in arch and even sitting sometimes in bottom of foot. L foot gets swollen. Denies numbness or tingling. 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 Still hs 3 more months (done 3 others) of oral meds. 2020 breast cancer dx and had lumpectomy and is showing neg for further cancer . Dizziness with standing up. She has lost a lot of wt with keto diet for over a year. Was on BP med until Mar and is now on every other day dose. Feels good when get into bed and wakes up at 4 am so uncomfortable. Sleeps with pillow btwn knees but loses it by 4 am. No xrays done yet. Pt does have hx of B ovary removal and hysterectomy in 1996 with significant abodminal scar. She notes no GI distress when questioned, but does note heat pack to abdomen can help relieve pain Treatment Goals Patient/Caregiver Goals RV trips w/o pain. Has big trip in fall planned, get shoes/socks on easier, be able to sit to knit, sleep better PT-OP-C Subjective Start: 08/20/23 17:36 Freq: Status: Active Protocol: Document 10/07/23 11:17 JG (Rec: 10/07/23 12:10 J [id number]) OP-PT Subjective Patient Comments Patient Comments Pt is feeling good today. She has been walking. R side hip pain that goes from back of the butt to the back of the knee Patient Reported Progress Same PT-OP-F Manual Assessment Start: 08/20/23 17:36 Freq: Status: Active Protocol: Document 08/24/23 13:00 [facility] (Rec: 08/24/23 14:35 [facility] [id number]) Manual Assessments Joint Mobility Assessment Joint Mobility Assessment dec hip abd mobility PT-OP-J Posture/Palpation/Skin Start: 08/20/23 17:36 Freq: Status: Active Protocol: Document 08/24/23 13:00 [facility] (Rec: 08/24/23 14:35 [facility] [id number]) Posture Evaluation Comments Posture Comments Wt shifted to L, L knee valgus , R foot turned, R rot, R pelvic shear; R iliac crest elevated & greater troch PT-OP-K Range of Motion Start: 08/20/23 17:36 Freq: Status: Active Protocol: Document 08/24/23 13:00 [facility] (Rec: 08/24/23 14:35 [facility] [id number]) Lumbar Spine Range of Motion Lumbar Spine Active Percentage Flexion 75 Extension 75 Rotation Left 80 Rotation Right 60 Lateral Flexion Left 90 Lateral Flexion Right 50 Comments pain B buttocks flex/ex PT-OP-L Special Tests Start: 08/20/23 17:36 Freq: Status: Active Protocol: Document 08/24/23 13:00 [facility] (Rec: 08/24/23 14:35 [facility] [id number]) Special Tests Lumbar Spine Special Tests march Test Results pos L Slump Test Results pos R PT-OP-M Strength Start: 08/20/23 17:36 Freq: Status: Active Protocol: Document 09/24/23 08:57 [facility] (Rec: 09/24/23 12:32 [facility] [id number]) Hip Strength Hip Manual Muscle Testing Right Flexion (L2) 4 Good Extension (S1) 3+ Fair+ Abduction 4 Good Adduction 5 Normal External Rotation 4+ Good+ Internal Rotation 5 Normal Comments pain ext Left Flexion (L2) 4+ Good+ Extension (S1) 4 Good Abduction 4- Good- External Rotation 4- Good- Internal Rotation 5 Normal PT-OP-Q Treatments Start: 08/20/23 17:36 Freq: Status: Active Protocol: Document 10/07/23 11:17 JG (Rec: 10/07/23 12:10 JG [id number]) Therapeutic Exercises Supine Exercises BKFO Resistance Sea glass green personal TB Reps/Minutes 10 ea Comments Cueing to keep opposite side from rotating Bridge Side bilateral Reps/Minutes 10 Comments cues for core engagement Sidelying Exercises open book Side bilateral Reps/Minutes 10 ea Comments cues for slow controlled motion Standing Exercises paloff press Side bilateral Equipment Used 2 orange bands Reps/Minutes 12 ea Comments cues for set up and core Therapeutic Activity Therapeutic Activity ground transfer Reps/Minutes 8 min Comments work on bear position up/down and had improved ability to go up/down after mult reps and cues for up/down w/o any concern for LOB 8 repitions Manual Therapy Treatment Consent Patient gave verbal consent for manual Yes treatment Soft Tissue Mobilization glute Body Location R superior & piriformis and IT band Mobilization Type Rolling,Sustained Pressure Intensity/Depth Moderate Body Position Sidelying lumbar Body Location R QL Mobilization Type Rolling Intensity/Depth Moderate Body Position Sidelying Comments w/pelvic elevation/depression Joint Mobilizations lumbar Direction Inf Grade III Body Position Sidelying Comments L4/L5 gapping with inf distraction of illium PT-OP-T Assessment and Plan Start: 08/20/23 17:36 Freq: Status: Active Protocol: Document 10/07/23 11:17 JG (Rec: 10/07/23 15:22 [id number]) Physical Therapy Assessment Goals KELI Impairment 32% Short Term Goal (STG) Pt will improve KELI score to no greater than 24% in order to show improved functional capacity. 09/23-36% STG Duration 10/03 Jail Goal (LTG) Pt will improve KELI score to no greater than 4% in order to show improved functional capacity. LTG Duration 11/09 strength Short Term Goal (STG) Pt will be indep w/HEP for dec pain, strength and mobility. STG Duration achieved 09/23 advancing as able Jail Goal (LTG) Pt will score at least 4+/5 on BLE MMT in order to allow her to participate in her ADLs w/ o inc hip/leg pain. 09/23-improved LTG Duration 11/09 sleep Short Term Goal (STG) Pt will be educated and follow education re: sleep posture and positioning along w/shoe lift and orthotics (as needed) STG Duration achieved Jail Goal (LTG) Pt will be able to sleep fully through the night w/o waking d/t pain or waking up w/pain. 09/23- still not comfortable in bed. Wakes up when she has to move. SLeeps 11-130/2; very disturbed LTG Duration 11/04 sitting Short Term Goal (STG) Pt will be able to sit and have full hip ROM in order to don/doff shoes/socks w/o inc pain. STG Duration Achievied 09/21 [employer] Systems Operator Goal (LTG) Pt will be able to sit long periods w/o inc pain in order to facilitate ease w/travel in fall and ability to knit 09/23-pain in car 09/23-can sit longer now -can do about 30-45 min before getting up; car painful but truck okay LTG Duration 11/15 Assessment Summary Assessment PT did well with treatment and felt better after manual therapy and exercise. Pt had good carryover and recall of HEP. Pt was able to perform ground to stand transfers using bear plank position with inc repitions and confidence Physical Therapy Plan Frequency and Duration Frequency of Treatment 2x/Week Duration of treatment (weeks) 12 Plan of Care Start Date 08/24/23 Plan of Care End Date 11/16/23 Next Visit Focus/Plan Next Note Type Treatment Note Next Visit Plan Focus on HEP recall, Hip distraction PNF, core work, hip exercises
--- NOTE | 2023-10-12 12:22 | PT.OTN ---
Current Diagnoses Malignant neoplasm of upper-outer quadrant of right female breast (10/12/23) Sciatica, unspecified side (10/12/23) Estrogen receptor positive status [ER+] (10/12/23) Physical Therapy Treatment Note PT-OP-A Visit Information Start: 08/20/23 17:36 Freq: Status: Active Protocol: Document 10/12/23 11:22 [facility] (Rec: 10/12/23 12:22 [facility] [id number]) Out-Patient Physical Therapy Visit Information Visit Information Visit Type Treatment Note Visit Note 08/13 Visit Start Time 11:23 Visit Stop Time 12:01 Visit Number 12 Number of BREAK OUT WORKER Visits 0 PT-OP-B Current Condition Start: 08/20/23 17:36 Freq: Status: Active Protocol: Document 08/24/23 13:00 [facility] (Rec: 08/24/23 14:35 [facility] [id number]) Current Condition History of Current Condition Onset Date Apr Current Complaints R leg and buttocks pain History of Current Condition Pt reports she started having leg pain in Apr and just came out of the blue one day. She has had history of sciatica 2.5 years ago. Pt rpeorts last time it was her R leg also. Last time, eventually went to chiro and massage therapy. It lasted 4 months. She started seeing the chiro about 2 months ago. Chiro attributes piriformis. This time, she has found soem youtube exercsies and chiro approved them but isn't sure she is doing them correctly. Occ, when she has a lot of pain, she does the clamshell but feels like it is just focusing on the exercise distracts her. Las kofiple of months has felt like L arch has fallen and when she is walking gets pain in arch and even sitting sometimes in bottom of foot. L foot gets swollen. Denies numbness or tingling. 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 Still hs 3 more months (done 3 others) of oral meds. 2020 breast cancer dx and had lumpectomy and is showing neg for further cancer . Dizziness with standing up. She has lost a lot of wt with keto diet for over a year. Was on BP med until Mar and is now on every other day dose. Feels good when get into bed and wakes up at 4 am so uncomfortable. Sleeps with pillow btwn knees but loses it by 4 am. No xrays done yet. Pt does have hx of B ovary removal and hysterectomy in 1996 with significant abodminal scar. She notes no GI distress when questioned, but does note heat pack to abdomen can help relieve pain Treatment Goals Patient/Caregiver Goals RV trips w/o pain. Has big trip in fall planned, get shoes/socks on easier, be able to sit to knit, sleep better PT-OP-C Subjective Start: 08/20/23 17:36 Freq: Status: Active Protocol: Document 10/12/23 11:22 [facility] (Rec: 10/12/23 12:22 [facility] [id number]) OP-PT Subjective Patient Comments Patient Comments Pt repots did a drive thursday and that really aggrevated leg . Able to get up/down from floor. has a question on exercise PT-OP-F Manual Assessment Start: 08/20/23 17:36 Freq: Status: Active Protocol: Document 08/24/23 13:00 [facility] (Rec: 08/24/23 14:35 [facility] [id number]) Manual Assessments Joint Mobility Assessment Joint Mobility Assessment dec hip abd mobility PT-OP-J Posture/Palpation/Skin Start: 08/20/23 17:36 Freq: Status: Active Protocol: Document 08/24/23 13:00 [facility] (Rec: 08/24/23 14:35 [facility] [id number]) Posture Evaluation Comments Posture Comments Wt shifted to L, L knee valgus , R foot turned, R rot, R pelvic shear; R iliac crest elevated & greater troch PT-OP-K Range of Motion Start: 08/20/23 17:36 Freq: Status: Active Protocol: Document 08/24/23 13:00 [facility] (Rec: 08/24/23 14:35 [facility] [id number]) Lumbar Spine Range of Motion Lumbar Spine Active Percentage Flexion 75 Extension 75 Rotation Left 80 Rotation Right 60 Lateral Flexion Left 90 Lateral Flexion Right 50 Comments pain B buttocks flex/ex PT-OP-L Special Tests Start: 08/20/23 17:36 Freq: Status: Active Protocol: Document 08/24/23 13:00 [facility] (Rec: 08/24/23 14:35 [facility] [id number]) Special Tests Lumbar Spine Special Tests march Test Results pos L Slump Test Results pos R PT-OP-M Strength Start: 08/20/23 17:36 Freq: Status: Active Protocol: Document 09/24/23 08:57 [facility] (Rec: 09/24/23 12:32 [facility] [id number]) Hip Strength Hip Manual Muscle Testing Right Flexion (L2) 4 Good Extension (S1) 3+ Fair+ Abduction 4 Good Adduction 5 Normal External Rotation 4+ Good+ Internal Rotation 5 Normal Comments pain ext Left Flexion (L2) 4+ Good+ Extension (S1) 4 Good Abduction 4- Good- External Rotation 4- Good- Internal Rotation 5 Normal PT-OP-Q Treatments Start: 08/20/23 17:36 Freq: Status: Active Protocol: Document 10/12/23 11:22 [facility] (Rec: 10/12/23 12:22 [facility] [id number]) Gym Equipment Shuttle Balance red clips Details w/dec UE support Reps/Duration 8 min total Comments fwd & side WBOS fwd: NBOS Therapeutic Ball seated Ball Size/Color 65cm Body Position Sitting Comments 1. pelvic tilts x10 2. pelvic circles CW/CCW x10 3. marches 2x10 4. sit backs x12 w/PT holding at legs and toes under mat table Therapeutic Exercises Supine Exercises Bridge Side bilateral Reps/Minutes 2x10 Comments cues for tilt then glute Manual Therapy Treatment Consent Patient gave verbal consent for manual Yes treatment Soft Tissue Mobilization glute Body Location R superior & piriformis Mobilization Type Rolling,Sustained Pressure Intensity/Depth Moderate Body Position Sitting Comments hip IR/ER Joint Mobilizations lumbar Grade II Body Position Sitting Comments Transverse L 4 and 5 R PT-OP-T Assessment and Plan Start: 08/20/23 17:36 Freq: Status: Active Protocol: Document 10/12/23 11:22 [facility] (Rec: 10/12/23 12:22 [facility] [id number]) Physical Therapy Assessment Goals KELI Impairment 32% Short Term Goal (STG) Pt will improve KELI score to no greater than 24% in order to show improved functional capacity. 6/20-36% STG Duration 10/03 Guest Associate Goal (LTG) Pt will improve KELI score to no greater than 4% in order to show improved functional capacity. LTG Duration 86 strength Short Term Goal (STG) Pt will be indep w/HEP for dec pain, strength and mobility. STG Duration achieved 09/23 advancing as able Half-Way Goal (LTG) Pt will score at least 4+/5 on BLE MMT in order to allow her to participate in her ADLs w/ o inc hip/leg pain. 09/23-improved LTG Duration 11/09 sleep Short Term Goal (STG) Pt will be educated and follow education re: sleep posture and positioning along w/shoe lift and orthotics (as needed) STG Duration achieved Half-Way Goal (LTG) Pt will be able to sleep fully through the night w/o waking d/t pain or waking up w/pain. 09/23- still not comfortable in bed. Wakes up when she has to move. SLeeps 11-130/2; very disturbed LTG Duration 11/04 sitting Short Term Goal (STG) Pt will be able to sit and have full hip ROM in order to don/doff shoes/socks w/o inc pain. STG Duration Achievied 09/21 Half-Way Goal (LTG) Pt will be able to sit long periods w/o inc pain in order to facilitate ease w/travel in fall and ability to knit 09/23-pain in car 09/23-can sit longer now -can do about 30-45 min before getting up; car painful but truck okay LTG Duration 11/15 Assessment Summary Assessment Pt did well with exercises, but was challenged by balance and core on ball today. She did well with bridge after cues given. Physical Therapy Plan Frequency and Duration Frequency of Treatment 2x/Week Duration of treatment (weeks) 12 Plan of Care Start Date 08/24/23 Plan of Care End Date 11/16/23 Next Visit Focus/Plan Next Note Type Treatment Note Next Visit Plan PNF work, shuttle balance board, review jakob rawls work, manual to dec pain
--- NOTE | 2023-10-14 18:21 | PT.OTN ---
Addendum entered and electronically signed by Moriah Solis, PT 10/15/23 18:02: PT direct supervision and direction to student PT Rufino Dunbar throughout session Original Note: Current Diagnoses Malignant neoplasm of upper-outer quadrant of right female breast (10/14/23) Sciatica, unspecified side (10/14/23) Estrogen receptor positive status [ER+] (10/14/23) Physical Therapy Treatment Note PT-OP-A Visit Information Start: 08/20/23 17:36 Freq: Status: Active Protocol: Document 10/14/23 11:17 JG (Rec: 10/14/23 17:44 J [id number]) Out-Patient Physical Therapy Visit Information Visit Information Visit Start Time 11:17 Visit Stop Time 12:02 Visit Number 13 Number of PROFILE MILL OPERATOR TAPE CONTROL Visits 0 PT-OP-B Current Condition Start: 08/20/23 17:36 Freq: Status: Active Protocol: Document 08/24/23 13:00 [facility] (Rec: 08/24/23 14:35 [facility] [id number]) Current Condition History of Current Condition Onset Date Apr Current Complaints R leg and buttocks pain History of Current Condition Pt reports she started having leg pain in Apr and just came out of the blue one day. She has had history of sciatica 2.5 years ago. Pt rpeorts last time it was her R leg also. Last time, eventually went to chiro and massage therapy. It lasted 4 months. She started seeing the chiro about 2 months ago. Chiro attributes piriformis. This time, she has found soem youtube exercsies and chiro approved them but isn't sure she is doing them correctly. Occ, when she has a lot of pain, she does the clamshell but feels like it is just focusing on the exercise distracts her. Las tcouple of months has felt like L arch has fallen and when she is walking gets pain in arch and even sitting sometimes in bottom of foot. L foot gets swollen. Denies numbness or tingling. 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 Still hs 3 more months (done 3 others) of oral meds. 2020 breast cancer dx and had lumpectomy and is showing neg for further cancer . Dizziness with standing up. She has lost a lot of wt with keto diet for over a year. Was on BP med until Mar and is now on every other day dose. Feels good when get into bed and wakes up at 4 am so uncomfortable. Sleeps with pillow btwn knees but loses it by 4 am. No xrays done yet. Pt does have hx of B ovary removal and hysterectomy in 1996 with significant abodminal scar. She notes no GI distress when questioned, but does note heat pack to abdomen can help relieve pain Treatment Goals Patient/Caregiver Goals RV trips w/o pain. Has big trip in fall planned, get shoes/socks on easier, be able to sit to knit, sleep better PT-OP-C Subjective Start: 08/20/23 17:36 Freq: Status: Active Protocol: Document 10/14/23 11:17 JG (Rec: 10/14/23 17:44 JG [id number]) OP-PT Subjective Patient Comments Patient Comments Pt reports that she had low energy today and yesterday. She mentioned that she needs more fluids throughout the day . She is sleeping through the night and is not waking up with leg pain Patient Reported Progress Same PT-OP-F Manual Assessment Start: 08/20/23 17:36 Freq: Status: Active Protocol: Document 08/24/23 13:00 [facility] (Rec: 08/24/23 14:35 [facility] [id number]) Manual Assessments Joint Mobility Assessment Joint Mobility Assessment dec hip abd mobility PT-OP-J Posture/Palpation/Skin Start: 08/20/23 17:36 Freq: Status: Active Protocol: Document 08/24/23 13:00 [facility] (Rec: 08/24/23 14:35 [facility] [id number]) Posture Evaluation Comments Posture Comments Wt shifted to L, L knee valgus , R foot turned, R rot, R pelvic shear; R iliac crest elevated & greater troch PT-OP-K Range of Motion Start: 08/20/23 17:36 Freq: Status: Active Protocol: Document 08/24/23 13:00 [facility] (Rec: 08/24/23 14:35 [facility] [id number]) Lumbar Spine Range of Motion Lumbar Spine Active Percentage Flexion 75 Extension 75 Rotation Left 80 Rotation Right 60 Lateral Flexion Left 90 Lateral Flexion Right 50 Comments pain B buttocks flex/ex PT-OP-L Special Tests Start: 08/20/23 17:36 Freq: Status: Active Protocol: Document 08/24/23 13:00 [facility] (Rec: 08/24/23 14:35 [facility] [id number]) Special Tests Lumbar Spine Special Tests march Test Results pos L Slump Test Results pos R PT-OP-M Strength Start: 08/20/23 17:36 Freq: Status: Active Protocol: Document 09/24/23 08:57 [facility] (Rec: 09/24/23 12:32 [facility] [id number]) Hip Strength Hip Manual Muscle Testing Right Flexion (L2) 4 Good Extension (S1) 3+ Fair+ Abduction 4 Good Adduction 5 Normal External Rotation 4+ Good+ Internal Rotation 5 Normal Comments pain ext Left Flexion (L2) 4+ Good+ Extension (S1) 4 Good Abduction 4- Good- External Rotation 4- Good- Internal Rotation 5 Normal PT-OP-Q Treatments Start: 08/20/23 17:36 Freq: Status: Active Protocol: Document 10/14/23 11:17 JG (Rec: 10/14/23 17:44 JG [id number]) Gym Equipment Shuttle Balance red clips Details w/dec UE support Reps/Duration 8 min total Comments 1. Perpindicular with sticker WBOS/NBOS 2. Parallel with sticker WBOS Therapeutic Exercises Supine Exercises BKFO Resistance [place] personal TB inc band resistance Reps/Minutes 10 ea Bridge Side bilateral Reps/Minutes x15 Manual Therapy Treatment Consent Patient gave verbal consent for manual Yes treatment Soft Tissue Mobilization glute Body Location R superior & piriformis Mobilization Type Rolling,Sustained Pressure Intensity/Depth Moderate Body Position Sitting Comments hip IR/ER Joint Mobilizations lumbar Grade II Body Position Prone Comments Transverse L 4 and 5 R innominate Grade IV Body Position Prone Comments Caudal glide prone R FM with LTR and knee flexion Neuro Re-Education Treatment Balance Activities Therball Details Pelvic tilts, pelvic circles, marches B Surface sitting on therball Equipment therball Reps/Duration 10 ea Comments PT guarded pt from behind PT-OP-T Assessment and Plan Start: 08/20/23 17:36 Freq: Status: Active Protocol: Document 10/14/23 11:17 JG (Rec: 10/14/23 17:44 JG [id number]) Physical Therapy Assessment Goals KELI Impairment 32% Short Term Goal (STG) Pt will improve KELI score to no greater than 24% in order to show improved functional capacity. 09/23-36% STG Duration 10/03 Cosmetic Sales Assistant Goal (LTG) Pt will improve KELI score to no greater than 4% in order to show improved functional capacity. LTG Duration 11/09 strength Short Term Goal (STG) Pt will be indep w/HEP for dec pain, strength and mobility. STG Duration achieved 09/23 advancing as able Custodial Goal (LTG) Pt will score at least 4+/5 on BLE MMT in order to allow her to participate in her ADLs w/ o inc hip/leg pain. 09/23-improved LTG Duration 11/09 sleep Short Term Goal (STG) Pt will be educated and follow education re: sleep posture and positioning along w/shoe lift and orthotics (as needed) STG Duration achieved Cosmetic Sales Assistant Goal (LTG) Pt will be able to sleep fully through the night w/o waking d/t pain or waking up w/pain. 09/23- still not comfortable in bed. Wakes up when she has to move. SLeeps 11-130/2; very disturbed LTG Duration 11/04 sitting Short Term Goal (STG) Pt will be able to sit and have full hip ROM in order to don/doff shoes/socks w/o inc pain. STG Duration Achievied 09/21 Cosmetic Sales Assistant Goal (LTG) Pt will be able to sit long periods w/o inc pain in order to facilitate ease w/travel in fall and ability to knit 09/23-pain in car 09/23-can sit longer now -can do about 30-45 min before getting up; car painful but truck okay LTG Duration 11/15 Progress Towards Goals Progress Towards Goals Progressing Toward Goals Assessment Summary Assessment Pt did well with activity tolerance and is requiring less cueing for exercises. Pt reported that she felt looser upon completion of PT today. Pt had BP checked at begginning of session on R UE: 139/77 HR 63 Physical Therapy Plan Frequency and Duration Frequency of Treatment 2x/Week Duration of treatment (weeks) 12 Plan of Care Start Date 08/24/23 Plan of Care End Date 11/16/23 Next Visit Focus/Plan Next Note Type Treatment Note Next Visit Plan PNF work, shuttle balance board, review bridges, tball work, manual to dec pain, therball exercises: pelvic tilts, circles, marches, standing balance and hip exercises: hurdles, SLS
--- NOTE | 2023-10-23 12:37 | PT.OTN ---
Current Diagnoses Malignant neoplasm of upper-outer quadrant of right female breast (10/23/23) Sciatica, unspecified side (10/23/23) Estrogen receptor positive status [ER+] (10/23/23) Physical Therapy Treatment Note PT-OP-A Visit Information Start: 08/20/23 17:36 Freq: Status: Active Protocol: Document 10/23/23 09:22 AB (Rec: 10/23/23 12:37 AB [id number]) Out-Patient Physical Therapy Visit Information Visit Information Visit Type Treatment Note Visit Note 10/13 Visit Start Time 10:34 Visit Stop Time 11:16 Visit Number 14 Number of CAD DRAFTER Visits 1 PT-OP-B Current Condition Start: 08/20/23 17:36 Freq: Status: Active Protocol: Document 08/24/23 13:00 LR (Rec: 08/24/23 14:35 [facility] [id number]) Current Condition History of Current Condition Onset Date Apr Current Complaints R leg and buttocks pain History of Current Condition Pt reports she started having leg pain in Apr and just came out of the blue one day. She has had history of sciatica 2.5 years ago. Pt rpeorts last time it was her R leg also. Last time, eventually went to chiro and massage therapy. It lasted 4 months. She started seeing the chiro about 2 months ago. Chiro attributes piriformis. This time, she has found soem youtube exercsies and chiro approved them but isn't sure she is doing them correctly. Occ, when she has a lot of pain, she does the clamshell but feels like it is just focusing on the exercise distracts her. Las kofiple of months has felt like L arch has fallen and when she is walking gets pain in arch and even sitting sometimes in bottom of foot. L foot gets swollen. Denies numbness or tingling. 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 Still hs 3 more months (done 3 others) of oral meds. 2020 breast cancer dx and had lumpectomy and is showing neg for further cancer . Dizziness with standing up. She has lost a lot of wt with keto diet for over a year. Was on BP med until Mar and is now on every other day dose. Feels good when get into bed and wakes up at 4 am so uncomfortable. Sleeps with pillow btwn knees but loses it by 4 am. No xrays done yet. Pt does have hx of B ovary removal and hysterectomy in 1996 with significant abodminal scar. She notes no GI distress when questioned, but does note heat pack to abdomen can help relieve pain Treatment Goals Patient/Caregiver Goals RV trips w/o pain. Has big trip in fall planned, get shoes/socks on easier, be able to sit to knit, sleep better PT-OP-C Subjective Start: 08/20/23 17:36 Freq: Status: Active Protocol: Document 10/23/23 09:22 AB (Rec: 10/23/23 12:37 AB [id number]) OP-PT Subjective Patient Comments Patient Comments Patient reports the right hip is very sore, attributes to possibly increasing the band resistance and driving 5-6 hours for camping. Patient reports the hip hurts when she rotates in standing and sometimes gets a sharp pain when taking her first step after standing up. PT-OP-F Manual Assessment Start: 08/20/23 17:36 Freq: Status: Active Protocol: Document 08/24/23 13:00 [facility] (Rec: 08/24/23 14:35 [facility] [id number]) Manual Assessments Joint Mobility Assessment Joint Mobility Assessment dec hip abd mobility PT-OP-J Posture/Palpation/Skin Start: 08/20/23 17:36 Freq: Status: Active Protocol: Document 08/24/23 13:00 [facility] (Rec: 08/24/23 14:35 [facility] [id number]) Posture Evaluation Comments Posture Comments Wt shifted to L, L knee valgus , R foot turned, R rot, R pelvic shear; R iliac crest elevated & greater troch PT-OP-K Range of Motion Start: 08/20/23 17:36 Freq: Status: Active Protocol: Document 08/24/23 13:00 [facility] (Rec: 08/24/23 14:35 [facility] [id number]) Lumbar Spine Range of Motion Lumbar Spine Active Percentage Flexion 75 Extension 75 Rotation Left 80 Rotation Right 60 Lateral Flexion Left 90 Lateral Flexion Right 50 Comments pain B buttocks flex/ex PT-OP-L Special Tests Start: 08/20/23 17:36 Freq: Status: Active Protocol: Document 08/24/23 13:00 [facility] (Rec: 08/24/23 14:35 [facility] [id number]) Special Tests Lumbar Spine Special Tests march Test Results pos L Slump Test Results pos R PT-OP-M Strength Start: 08/20/23 17:36 Freq: Status: Active Protocol: Document 09/24/23 08:57 [facility] (Rec: 09/24/23 12:32 [facility] [id number]) Hip Strength Hip Manual Muscle Testing Right Flexion (L2) 4 Good Extension (S1) 3+ Fair+ Abduction 4 Good Adduction 5 Normal External Rotation 4+ Good+ Internal Rotation 5 Normal Comments pain ext Left Flexion (L2) 4+ Good+ Extension (S1) 4 Good Abduction 4- Good- External Rotation 4- Good- Internal Rotation 5 Normal PT-OP-Q Treatments Start: 08/20/23 17:36 Freq: Status: Active Protocol: Document 10/23/23 09:22 AB (Rec: 10/23/23 12:37 AB [id number]) Therapeutic Exercises Supine Exercises figure 4 stretch Side right Reps/Minutes 15 each Comments monitored for location of sensation of stretch Stretch Supine Exercise Name Piriformis Side bilateral Reps/Minutes 60 seconds X each LE Comments right LE requires towel roll for gapping Sidelying Exercises reverse clamshell Side bilateral Equipment Used level 2 band Reps/Minutes 10 clamshells Side bilateral Resistance level 2 band Reps/Minutes 10 Sitting Exercises Seated hip abduction with band Side bilateral Resistance level2 band Reps/Minutes one minute X 1 Manual Therapy Treatment Soft Tissue Mobilization glute Body Location glute & piriformis Mobilization Type Cross-Friction,Rolling, Sustained Pressure Intensity/Depth Moderate Body Position Sidelying lumbar Body Location R paraspinals, quadratus Mobilization Type Rolling,Sustained Pressure Intensity/Depth Moderate Body Position Sidelying Manual Techniques MET for right AI left PI and pubic shot gun Reps/Duration 6 sec X 6 each Neuro Re-Education Treatment Balance Activities hurdles Reps/Duration 10ft X 6 Comments hands above bars, initiated with CGA progressed to supervision SLS Details without UE use Reps/Duration 2-3 min Comments hands above parallle bar using bar as needed PT-OP-T Assessment and Plan Start: 08/20/23 17:36 Freq: Status: Active Protocol: Document 10/23/23 09:22 AB (Rec: 10/23/23 12:37 AB [id number]) Physical Therapy Assessment Goals KELI Impairment 32% Short Term Goal (STG) Pt will improve KELI score to no greater than 24% in order to show improved functional capacity. 09/23-36% STG Duration 10/03 Prison Goal (LTG) Pt will improve KELI score to no greater than 4% in order to show improved functional capacity. LTG Duration 11/09 strength Short Term Goal (STG) Pt will be indep w/HEP for dec pain, strength and mobility. STG Duration achieved 09/23 advancing as able Prison Goal (LTG) Pt will score at least 4+/5 on BLE MMT in order to allow her to participate in her ADLs w/ o inc hip/leg pain. 09/23-improved LTG Duration 11/09 sleep Short Term Goal (STG) Pt will be educated and follow education re: sleep posture and positioning along w/shoe lift and orthotics (as needed) STG Duration achieved Prison Goal (LTG) Pt will be able to sleep fully through the night w/o waking d/t pain or waking up w/pain. 09/23- still not comfortable in bed. Wakes up when she has to move. SLeeps 11-130/2; very disturbed LTG Duration 11/04 sitting Short Term Goal (STG) Pt will be able to sit and have full hip ROM in order to don/doff shoes/socks w/o inc pain. STG Duration Achievied 09/21 Prison Goal (LTG) Pt will be able to sit long periods w/o inc pain in order to facilitate ease w/travel in fall and ability to knit 09/23-pain in car 09/23-can sit longer now -can do about 30-45 min before getting up; car painful but truck okay LTG Duration 11/15 Assessment Summary Assessment SLS increased from 1 sec left and right LE without UE use to 3 sec post balance exercises. Patient reports decreased right hip pain with gapping with towel roll for piriformis stretch and positioning LE to tie shoe. Physical Therapy Plan Frequency and Duration Frequency of Treatment 2x/Week Duration of treatment (weeks) 12 Plan of Care Start Date 08/24/23 Plan of Care End Date 11/16/23 Next Visit Focus/Plan Next Note Type Treatment Note Next Visit Plan PNF work, shuttle balance board, review bridges, jakob work, manual to dec pain, therball exercises: pelvic tilts, circles, marches, standing balance and hip exercises: revisit hurdles, increased focus on SLS
--- NOTE | 2023-10-27 18:11 | PT.OTN ---
Current Diagnoses Malignant neoplasm of upper-outer quadrant of right female breast (10/27/23) Sciatica, unspecified side (10/27/23) Estrogen receptor positive status [ER+] (10/27/23) Physical Therapy Treatment Note PT-OP-A Visit Information Start: 08/20/23 17:36 Freq: Status: Active Protocol: Document 10/27/23 11:24 [facility] (Rec: 10/27/23 18:11 [facility] [id number]) Out-Patient Physical Therapy Visit Information Visit Information Visit Type Treatment Note Visit Start Time 11:24 Visit Stop Time 12:04 Visit Number 15 Number of PERSONNEL CLERKS SUPERVISOR Visits 0 PT-OP-B Current Condition Start: 08/20/23 17:36 Freq: Status: Active Protocol: Document 08/24/23 13:00 [facility] (Rec: 08/24/23 14:35 [facility] [id number]) Current Condition History of Current Condition Onset Date Apr Current Complaints R leg and buttocks pain History of Current Condition Pt reports she started having leg pain in Apr and just came out of the blue one day. She has had history of sciatica 2.5 years ago. Pt rpeorts last time it was her R leg also. Last time, eventually went to chiro and massage therapy. It lasted 4 months. She started seeing the chiro about 2 months ago. Chiro attributes piriformis. This time, she has found soem youtube exercsies and chiro approved them but isn't sure she is doing them correctly. Occ, when she has a lot of pain, she does the clamshell but feels like it is just focusing on the exercise distracts her. Las stephanieouple of months has felt like L arch has fallen and when she is walking gets pain in arch and even sitting sometimes in bottom of foot. L foot gets swollen. Denies numbness or tingling. 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 Still hs 3 more months (done 3 others) of oral meds. 2020 breast cancer dx and had lumpectomy and is showing neg for further cancer . Dizziness with standing up. She has lost a lot of wt with keto diet for over a year. Was on BP med until Mar and is now on every other day dose. Feels good when get into bed and wakes up at 4 am so uncomfortable. Sleeps with pillow btwn knees but loses it by 4 am. No xrays done yet. Pt does have hx of B ovary removal and hysterectomy in 1996 with significant abodminal scar. She notes no GI distress when questioned, but does note heat pack to abdomen can help relieve pain Treatment Goals Patient/Caregiver Goals RV trips w/o pain. Has big trip in fall planned, get shoes/socks on easier, be able to sit to knit, sleep better PT-OP-C Subjective Start: 08/20/23 17:36 Freq: Status: Active Protocol: Document 10/27/23 11:24 [facility] (Rec: 10/27/23 18:11 [facility] [id number]) OP-PT Subjective Patient Comments Patient Comments Pt reports feels like pink band is too difficult. Pt reports sincevisit 2 weeks ago , she has had hip pain constant. She has most inc the tues after d/t mostly groin pain. Pt reports minor relief after thursday session. Dendron okay sat but thursday and thursday worse. Pt c/o deep R ant hip pain mostly. PT-OP-F Manual Assessment Start: 08/20/23 17:36 Freq: Status: Active Protocol: Document 08/24/23 13:00 [facility] (Rec: 08/24/23 14:35 [facility] [id number]) Manual Assessments Joint Mobility Assessment Joint Mobility Assessment dec hip abd mobility PT-OP-J Posture/Palpation/Skin Start: 08/20/23 17:36 Freq: Status: Active Protocol: Document 08/24/23 13:00 [facility] (Rec: 08/24/23 14:35 [facility] [id number]) Posture Evaluation Comments Posture Comments Wt shifted to L, L knee valgus , R foot turned, R rot, R pelvic shear; R iliac crest elevated & greater troch PT-OP-K Range of Motion Start: 08/20/23 17:36 Freq: Status: Active Protocol: Document 08/24/23 13:00 [facility] (Rec: 08/24/23 14:35 [facility] [id number]) Lumbar Spine Range of Motion Lumbar Spine Active Percentage Flexion 75 Extension 75 Rotation Left 80 Rotation Right 60 Lateral Flexion Left 90 Lateral Flexion Right 50 Comments pain B buttocks flex/ex PT-OP-L Special Tests Start: 08/20/23 17:36 Freq: Status: Active Protocol: Document 08/24/23 13:00 [facility] (Rec: 08/24/23 14:35 [facility] [id number]) Special Tests Lumbar Spine Special Tests march Test Results pos L Slump Test Results pos R PT-OP-M Strength Start: 08/20/23 17:36 Freq: Status: Active Protocol: Document 09/24/23 08:57 [facility] (Rec: 09/24/23 12:32 [facility] [id number]) Hip Strength Hip Manual Muscle Testing Right Flexion (L2) 4 Good Extension (S1) 3+ Fair+ Abduction 4 Good Adduction 5 Normal External Rotation 4+ Good+ Internal Rotation 5 Normal Comments pain ext Left Flexion (L2) 4+ Good+ Extension (S1) 4 Good Abduction 4- Good- External Rotation 4- Good- Internal Rotation 5 Normal PT-OP-Q Treatments Start: 08/20/23 17:36 Freq: Status: Active Protocol: Document 10/27/23 11:24 [facility] (Rec: 10/27/23 18:11 [facility] [id number]) Therapeutic Exercises Supine Exercises BKFO Supine Exercise Name individual Side bilateral Reps/Minutes 8 Comments cues core Bridge Side bilateral Reps/Minutes 5 Comments cues foot position abdominal bracing Supine Exercise Name w/B hip ER Side bilateral Reps/Minutes 1 min hold Sidelying Exercises open book Side bilateral Reps/Minutes 5 ea Manual Therapy Treatment Soft Tissue Mobilization Add Body Location R Add jayden, longus Mobilization Type Instrument Assisted,Rolling, Sustained Pressure Intensity/Depth Moderate Body Position Hooklying Comments w/ER and flexion Joint Mobilizations innominate Comments R ER and flex FM supine Hip Comments R inf FM and free the ball ER FM Self-Care/Home Management Treatment Education Other Education 5 min: edu of anatomy of coccyx w/relation to dura and mm/fascia of hip; discussed return to doctor for imaging and further assessment if PT does not cont to improve symptoms over next few weeks PT-OP-T Assessment and Plan Start: 08/20/23 17:36 Freq: Status: Active Protocol: Document 10/27/23 11:24 [facility] (Rec: 10/27/23 18:11 [facility] [id number]) Physical Therapy Assessment Goals KELI Impairment 32% Short Term Goal (STG) Pt will improve KELI score to no greater than 24% in order to show improved functional capacity. 6/20-36% STG Duration 10/03 Correction Goal (LTG) Pt will improve KELI score to no greater than 4% in order to show improved functional capacity. LTG Duration 11/09 strength Short Term Goal (STG) Pt will be indep w/HEP for dec pain, strength and mobility. STG Duration achieved 09/23 advancing as able Shoe Trimmer Goal (LTG) Pt will score at least 4+/5 on BLE MMT in order to allow her to participate in her ADLs w/ o inc hip/leg pain. 09/23-improved LTG Duration 11/09 sleep Short Term Goal (STG) Pt will be educated and follow education re: sleep posture and positioning along w/shoe lift and orthotics (as needed) STG Duration achieved Correction Goal (LTG) Pt will be able to sleep fully through the night w/o waking d/t pain or waking up w/pain. 09/23- still not comfortable in bed. Wakes up when she has to move. SLeeps 11-130/2; very disturbed LTG Duration 11/04 sitting Short Term Goal (STG) Pt will be able to sit and have full hip ROM in order to don/doff shoes/socks w/o inc pain. STG Duration Achievied 09/21 Shoe Trimmer Goal (LTG) Pt will be able to sit long periods w/o inc pain in order to facilitate ease w/travel in fall and ability to knit 09/23-pain in car 09/23-can sit longer now -can do about 30-45 min before getting up; car painful but truck okay LTG Duration 11/15 Assessment Summary Assessment Pt had much dec hip pain and leg pain after manual today. Improved performance of exercises w/cues. At end positive slump on R found w/ inc tension to coccyx R indicating likely part of cont n pain. Physical Therapy Plan Frequency and Duration Frequency of Treatment 2x/Week Duration of treatment (weeks) 12 Plan of Care Start Date 08/24/23 Plan of Care End Date 11/16/23 Next Visit Focus/Plan Next Note Type Treatment Note Next Visit Plan coccyx work, shuttle balance, tball exercises
--- NOTE | 2023-10-29 12:19 | PT.OTN ---
Current Diagnoses Malignant neoplasm of upper-outer quadrant of right female breast (10/29/23) Sciatica, unspecified side (10/29/23) Estrogen receptor positive status [ER+] (10/29/23) Physical Therapy Treatment Note PT-OP-A Visit Information Start: 08/20/23 17:36 Freq: Status: Active Protocol: Document 10/29/23 11:20 [facility] (Rec: 10/29/23 12:19 [facility] [id number]) Out-Patient Physical Therapy Visit Information Visit Information Visit Type Treatment Note Visit Note 12/14 Visit Start Time 11:20 Visit Stop Time 12:05 Visit Number 16 Number of INVESTOR RELATIONS COORDINATOR Visits 0 PT-OP-B Current Condition Start: 08/20/23 17:36 Freq: Status: Active Protocol: Document 08/24/23 13:00 [facility] (Rec: 08/24/23 14:35 [facility] [id number]) Current Condition History of Current Condition Onset Date Apr Current Complaints R leg and buttocks pain History of Current Condition Pt reports she started having leg pain in Apr and just came out of the blue one day. She has had history of sciatica 2.5 years ago. Pt rpeorts last time it was her R leg also. Last time, eventually went to chiro and massage therapy. It lasted 4 months. She started seeing the chiro about 2 months ago. Chiro attributes piriformis. This time, she has found soem youtube exercsies and chiro approved them but isn't sure she is doing them correctly. Occ, when she has a lot of pain, she does the clamshell but feels like it is just focusing on the exercise distracts her. [place] k[place] of months has felt like L arch has fallen and when she is walking gets pain in arch and even sitting sometimes in bottom of foot. L foot gets swollen. Denies numbness or tingling. 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 Still hs 3 more months (done 3 others) of oral meds. 2020 breast cancer dx and had lumpectomy and is showing neg for further cancer . Dizziness with standing up. She has lost a lot of wt with keto diet for over a year. Was on BP med until Mar and is now on every other day dose. Feels good when get into bed and wakes up at 4 am so uncomfortable. Sleeps with pillow btwn knees but loses it by 4 am. No xrays done yet. Pt does have hx of B ovary removal and hysterectomy in 1996 with significant abodminal scar. She notes no GI distress when questioned, but does note heat pack to abdomen can help relieve pain Treatment Goals Patient/Caregiver Goals RV trips w/o pain. Has big trip in fall planned, get shoes/socks on easier, be able to sit to knit, sleep better PT-OP-C Subjective Start: 08/20/23 17:36 Freq: Status: Active Protocol: Document 10/29/23 11:20 [facility] (Rec: 10/29/23 12:19 [facility] [id number]) OP-PT Subjective Patient Comments Patient Comments pt reports she has felt good since last session. A little bit of pain today. did knit for 1.5 hr to 2 hours knitting . Patient Reported Progress Improving PT-OP-F Manual Assessment Start: 08/20/23 17:36 Freq: Status: Active Protocol: Document 08/24/23 13:00 [facility] (Rec: 08/24/23 14:35 [facility] [id number]) Manual Assessments Joint Mobility Assessment Joint Mobility Assessment dec hip abd mobility PT-OP-J Posture/Palpation/Skin Start: 08/20/23 17:36 Freq: Status: Active Protocol: Document 08/24/23 13:00 [facility] (Rec: 08/24/23 14:35 [facility] [id number]) Posture Evaluation Comments Posture Comments Wt shifted to L, L knee valgus , R foot turned, R rot, R pelvic shear; R iliac crest elevated & greater troch PT-OP-K Range of Motion Start: 08/20/23 17:36 Freq: Status: Active Protocol: Document 08/24/23 13:00 [facility] (Rec: 08/24/23 14:35 [facility] [id number]) Lumbar Spine Range of Motion Lumbar Spine Active Percentage Flexion 75 Extension 75 Rotation Left 80 Rotation Right 60 Lateral Flexion Left 90 Lateral Flexion Right 50 Comments pain B buttocks flex/ex PT-OP-L Special Tests Start: 08/20/23 17:36 Freq: Status: Active Protocol: Document 08/24/23 13:00 [facility] (Rec: 08/24/23 14:35 [facility] [id number]) Special Tests Lumbar Spine Special Tests march Test Results pos L Slump Test Results pos R PT-OP-M Strength Start: 08/20/23 17:36 Freq: Status: Active Protocol: Document 09/24/23 08:57 [facility] (Rec: 09/24/23 12:32 [facility] [id number]) Hip Strength Hip Manual Muscle Testing Right Flexion (L2) 4 Good Extension (S1) 3+ Fair+ Abduction 4 Good Adduction 5 Normal External Rotation 4+ Good+ Internal Rotation 5 Normal Comments pain ext Left Flexion (L2) 4+ Good+ Extension (S1) 4 Good Abduction 4- Good- External Rotation 4- Good- Internal Rotation 5 Normal PT-OP-Q Treatments Start: 08/20/23 17:36 Freq: Status: Active Protocol: Document 10/29/23 11:20 [facility] (Rec: 10/29/23 12:19 [facility] [id number]) Manual Therapy Treatment Consent Patient gave verbal consent for manual Yes treatment Soft Tissue Mobilization glute Body Location glute & piriformis Mobilization Type Cross-Friction,Rolling, Sustained Pressure Intensity/Depth Moderate Body Position Sidelying Hamstring Body Location R distal HS and proximal calf Mobilization Type Rolling,Sustained Pressure Comments seated w/sciatic n glide Joint Mobilizations coccyx Comments seated & s/l: caudal and R UPA and transverse L FM w/hip rot & n glide sacrum Comments R UPA seated FM w/rot Rhip Self-Care/Home Management Treatment Education Other Education 2 min: edu on piriformis stretch or roll out for hip pain PT-OP-T Assessment and Plan Start: 08/20/23 17:36 Freq: Status: Active Protocol: Document 10/29/23 11:20 [facility] (Rec: 10/29/23 12:19 [facility] [id number]) Physical Therapy Assessment Goals KELI Impairment 32% Short Term Goal (STG) Pt will improve KELI score to no greater than 24% in order to show improved functional capacity. 09/23-36% STG Duration 10/03 Mcc Goal (LTG) Pt will improve KELI score to no greater than 4% in order to show improved functional capacity. LTG Duration 8/6 strength Short Term Goal (STG) Pt will be indep w/HEP for dec pain, strength and mobility. STG Duration achieved 09/23 advancing as able Mcc Goal (LTG) Pt will score at least 4+/5 on BLE MMT in order to allow her to participate in her ADLs w/ o inc hip/leg pain. 09/23-improved LTG Duration 11/09 sleep Short Term Goal (STG) Pt will be educated and follow education re: sleep posture and positioning along w/shoe lift and orthotics (as needed) STG Duration achieved Mcc Goal (LTG) Pt will be able to sleep fully through the night w/o waking d/t pain or waking up w/pain. 09/23- still not comfortable in bed. Wakes up when she has to move. SLeeps 11-130/2; very disturbed LTG Duration 11/04 sitting Short Term Goal (STG) Pt will be able to sit and have full hip ROM in order to don/doff shoes/socks w/o inc pain. STG Duration Achievied 09/21 Sewing Supervisor Goal (LTG) Pt will be able to sit long periods w/o inc pain in order to facilitate ease w/travel in fall and ability to knit 09/23-pain in car 09/23-can sit longer now -can do about 30-45 min before getting up; car painful but truck okay LTG Duration 11/15 Assessment Summary Assessment pt came in w/R glute pain and had no pain after manual. Pt had rotation of her coccyx and SB that was likely affecting buttocks pain and neural tension Physical Therapy Plan Frequency and Duration Frequency of Treatment 2x/Week Duration of treatment (weeks) 12 Plan of Care Start Date 08/24/23 Plan of Care End Date 11/16/23 Next Visit Focus/Plan Next Note Type Progress Note Next Visit Plan check pt progress with sitting and consider revisiting balance
--- NOTE | 2023-11-06 14:30 | PT.OTN ---
Current Diagnoses Malignant neoplasm of upper-outer quadrant of right female breast (11/06/23) Sciatica, unspecified side (11/06/23) Estrogen receptor positive status [ER+] (11/06/23) Physical Therapy Treatment Note PT-OP-A Visit Information Start: 08/20/23 17:36 Freq: Status: Active Protocol: Document 11/06/23 14:26 [facility] (Rec: 11/06/23 15:37 [facility] [id number]) Out-Patient Physical Therapy Visit Information Visit Information Visit Type Treatment Note Visit Note 01/13 Visit Start Time 14:30 Visit Stop Time 15:10 Visit Number 17 Number of BANKRUPTCY LAW SPECIALIST Visits 1 PT-OP-B Current Condition Start: 08/20/23 17:36 Freq: Status: Active Protocol: Document 08/24/23 13:00 [facility] (Rec: 08/24/23 14:35 [facility] [id number]) Current Condition History of Current Condition Onset Date Apr Current Complaints R leg and buttocks pain History of Current Condition Pt reports she started having leg pain in Apr and just came out of the blue one day. She has had history of sciatica 2.5 years ago. Pt rpeorts last time it was her R leg also. Last time, eventually went to chiro and massage therapy. It lasted 4 months. She started seeing the chiro about 2 months ago. Chiro attributes piriformis. This time, she has found soem youtube exercsies and chiro approved them but isn't sure she is doing them correctly. Occ, when she has a lot of pain, she does the clamshell but feels like it is just focusing on the exercise distracts her. [place] k[place] of months has felt like L arch has fallen and when she is walking gets pain in arch and even sitting sometimes in bottom of foot. L foot gets swollen. Denies numbness or tingling. 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 Still hs 3 more months (done 3 others) of oral meds. 2020 breast cancer dx and had lumpectomy and is showing neg for further cancer . Dizziness with standing up. She has lost a lot of wt with keto diet for over a year. Was on BP med until Mar and is now on every other day dose. Feels good when get into bed and wakes up at 4 am so uncomfortable. Sleeps with pillow btwn knees but loses it by 4 am. No xrays done yet. Pt does have hx of B ovary removal and hysterectomy in 1996 with significant abodminal scar. She notes no GI distress when questioned, but does note heat pack to abdomen can help relieve pain Treatment Goals Patient/Caregiver Goals RV trips w/o pain. Has big trip in fall planned, get shoes/socks on easier, be able to sit to knit, sleep better PT-OP-C Subjective Start: 08/20/23 17:36 Freq: Status: Active Protocol: Document 11/06/23 14:26 [facility] (Rec: 11/06/23 15:37 [facility] [id number]) OP-PT Subjective Patient Comments Patient Comments Pt reports pain in R hip flexors today, pain is not as bad as last session. PT-OP-F Manual Assessment Start: 08/20/23 17:36 Freq: Status: Active Protocol: Document 08/24/23 13:00 [facility] (Rec: 08/24/23 14:35 [facility] [id number]) Manual Assessments Joint Mobility Assessment Joint Mobility Assessment dec hip abd mobility PT-OP-J Posture/Palpation/Skin Start: 08/20/23 17:36 Freq: Status: Active Protocol: Document 08/24/23 13:00 [facility] (Rec: 08/24/23 14:35 [facility] [id number]) Posture Evaluation Comments Posture Comments Wt shifted to L, L knee valgus , R foot turned, R rot, R pelvic shear; R iliac crest elevated & greater troch PT-OP-K Range of Motion Start: 08/20/23 17:36 Freq: Status: Active Protocol: Document 08/24/23 13:00 [facility] (Rec: 08/24/23 14:35 [facility] [id number]) Lumbar Spine Range of Motion Lumbar Spine Active Percentage Flexion 75 Extension 75 Rotation Left 80 Rotation Right 60 Lateral Flexion Left 90 Lateral Flexion Right 50 Comments pain B buttocks flex/ex PT-OP-L Special Tests Start: 08/20/23 17:36 Freq: Status: Active Protocol: Document 08/24/23 13:00 [facility] (Rec: 08/24/23 14:35 [facility] [id number]) Special Tests Lumbar Spine Special Tests march Test Results pos L Slump Test Results pos R PT-OP-M Strength Start: 08/20/23 17:36 Freq: Status: Active Protocol: Document 09/24/23 08:57 [facility] (Rec: 09/24/23 12:32 [facility] [id number]) Hip Strength Hip Manual Muscle Testing Right Flexion (L2) 4 Good Extension (S1) 3+ Fair+ Abduction 4 Good Adduction 5 Normal External Rotation 4+ Good+ Internal Rotation 5 Normal Comments pain ext Left Flexion (L2) 4+ Good+ Extension (S1) 4 Good Abduction 4- Good- External Rotation 4- Good- Internal Rotation 5 Normal PT-OP-Q Treatments Start: 08/20/23 17:36 Freq: Status: Active Protocol: Document 11/06/23 14:26 [facility] (Rec: 11/06/23 15:37 [facility] [id number]) Therapeutic Exercises Supine Exercises Core bracing Reps/Minutes 5x10 Comments cues for core act, draw belly button in BKFO Supine Exercise Name individual Side bilateral Reps/Minutes 10 Comments cues core, pain in R hip flexor with stretch Bridge Side bilateral Reps/Minutes 10 Comments cues foot position, glute act figure 4 stretch Supine Exercise Name figure 4/piriformis Reps/Minutes 2x30 Comments feels good stretch in piri, some pain with figure 4 stretch on R side Sidelying Exercises clamshells Side bilateral Resistance pt's seaglass band Reps/Minutes 2x10 Manual Therapy Treatment Soft Tissue Mobilization glute Body Location glute & piriformis Mobilization Type Cross-Friction,Rolling, Sustained Pressure Intensity/Depth Moderate Body Position Sidelying Hamstring Body Location R distal HS and proximal calf Mobilization Type Rolling,Sustained Pressure Comments sidelying PT-OP-T Assessment and Plan Start: 08/20/23 17:36 Freq: Status: Active Protocol: Document 11/06/23 14:26 [facility] (Rec: 11/06/23 15:37 TS [id number]) Physical Therapy Assessment Goals KELI Impairment 32% Short Term Goal (STG) Pt will improve KELI score to no greater than 24% in order to show improved functional capacity. 6/20-36% STG Duration 10/03 Client Administrator Goal (LTG) Pt will improve KELI score to no greater than 4% in order to show improved functional capacity. LTG Duration 8/6 strength Short Term Goal (STG) Pt will be indep w/HEP for dec pain, strength and mobility. STG Duration achieved 6/20 advancing as able Client Administrator Goal (LTG) Pt will score at least 4+/5 on BLE MMT in order to allow her to participate in her ADLs w/ o inc hip/leg pain. 09/23-improved LTG Duration 11/09 sleep Short Term Goal (STG) Pt will be educated and follow education re: sleep posture and positioning along w/shoe lift and orthotics (as needed) STG Duration achieved Assisted Goal (LTG) Pt will be able to sleep fully through the night w/o waking d/t pain or waking up w/pain. 09/23- still not comfortable in bed. Wakes up when she has to move. SLeeps 11-130/2; very disturbed LTG Duration 11/04 sitting Short Term Goal (STG) Pt will be able to sit and have full hip ROM in order to don/doff shoes/socks w/o inc pain. STG Duration Achievied 09/21 Client Administrator Goal (LTG) Pt will be able to sit long periods w/o inc pain in order to facilitate ease w/travel in fall and ability to knit 09/23-pain in car 09/23-can sit longer now -can do about 30-45 min before getting up; car painful but truck okay LTG Duration 11/15 Assessment Summary Assessment Pt continues to have discomfort in R hip flexor/ quad with BKFO and figure 4 stretch. Pt reports feeling good stretch with piriformis. She requires max cueing for sequencing of exercises. Physical Therapy Plan Next Visit Focus/Plan Next Note Type Treatment Note Next Visit Plan Progress core act, cont stretching. check pt progress with sitting and consider revisiting balance.
--- NOTE | 2023-11-09 18:12 | PT.OTN ---
Current Diagnoses Malignant neoplasm of upper-outer quadrant of right female breast (11/09/23) Sciatica, unspecified side (11/09/23) Estrogen receptor positive status [ER+] (11/09/23) Physical Therapy Treatment Note PT-OP-A Visit Information Start: 08/20/23 17:36 Freq: Status: Active Protocol: Document 11/09/23 16:10 [facility] (Rec: 11/09/23 16:19 [facility] [id number]) Out-Patient Physical Therapy Visit Information Visit Information Visit Type Progress Note Visit Start Time 16:07 Visit Stop Time 16:47 Visit Number 18 Number of DISTRICT TRAFFIC CHIEF Visits 0 PT-OP-B Current Condition Start: 08/20/23 17:36 Freq: Status: Active Protocol: Document 08/24/23 13:00 [facility] (Rec: 08/24/23 14:35 [facility] [id number]) Current Condition History of Current Condition Onset Date Apr Current Complaints R leg and buttocks pain History of Current Condition Pt reports she started having leg pain in Apr and just came out of the blue one day. She has had history of sciatica 2.5 years ago. Pt rpeorts last time it was her R leg also. Last time, eventually went to chiro and massage therapy. It lasted 4 months. She started seeing the chiro about 2 months ago. Chiro attributes piriformis. This time, she has found soem youtube exercsies and chiro approved them but isn't sure she is doing them correctly. Occ, when she has a lot of pain, she does the clamshell but feels like it is just focusing on the exercise distracts her. Las stephanieouple of months has felt like L arch has fallen and when she is walking gets pain in arch and even sitting sometimes in bottom of foot. L foot gets swollen. Denies numbness or tingling. 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 Still hs 3 more months (done 3 others) of oral meds. 2020 breast cancer dx and had lumpectomy and is showing neg for further cancer . Dizziness with standing up. She has lost a lot of wt with keto diet for over a year. Was on BP med until Mar and is now on every other day dose. Feels good when get into bed and wakes up at 4 am so uncomfortable. Sleeps with pillow btwn knees but loses it by 4 am. No xrays done yet. Pt does have hx of B ovary removal and hysterectomy in 1996 with significant abodminal scar. She notes no GI distress when questioned, but does note heat pack to abdomen can help relieve pain Treatment Goals Patient/Caregiver Goals RV trips w/o pain. Has big trip in fall planned, get shoes/socks on easier, be able to sit to knit, sleep better PT-OP-C Subjective Start: 08/20/23 17:36 Freq: Status: Active Protocol: Document 11/09/23 16:10 [facility] (Rec: 11/09/23 16:19 [facility] [id number]) OP-PT Subjective Patient Comments Patient Comments Pt reports only did exercises at last session this past week . Pt only had only 2 twinges since last saw this PT. sidestepping caused it once and the other was getting out of bed. No twinges since last session. Pt reports she has been able to sit to knit (up to 2.5 hours w/getting up only for bathroom/for water)/and has done a lot of cleaning w/o pain. no pain w/drive to [place] PT-OP-F Manual Assessment Start: 08/20/23 17:36 Freq: Status: Active Protocol: Document 08/24/23 13:00 [facility] (Rec: 08/24/23 14:35 [facility] [id number]) Manual Assessments Joint Mobility Assessment Joint Mobility Assessment dec hip abd mobility PT-OP-J Posture/Palpation/Skin Start: 08/20/23 17:36 Freq: Status: Active Protocol: Document 08/24/23 13:00 [facility] (Rec: 08/24/23 14:35 [facility] [id number]) Posture Evaluation Comments Posture Comments Wt shifted to L, L knee valgus , R foot turned, R rot, R pelvic shear; R iliac crest elevated & greater troch PT-OP-K Range of Motion Start: 08/20/23 17:36 Freq: Status: Active Protocol: Document 08/24/23 13:00 [facility] (Rec: 08/24/23 14:35 [facility] [id number]) Lumbar Spine Range of Motion Lumbar Spine Active Percentage Flexion 75 Extension 75 Rotation Left 80 Rotation Right 60 Lateral Flexion Left 90 Lateral Flexion Right 50 Comments pain B buttocks flex/ex PT-OP-L Special Tests Start: 08/20/23 17:36 Freq: Status: Active Protocol: Document 08/24/23 13:00 [facility] (Rec: 08/24/23 14:35 [facility] [id number]) Special Tests Lumbar Spine Special Tests march Test Results pos L Slump Test Results pos R PT-OP-M Strength Start: 08/20/23 17:36 Freq: Status: Active Protocol: Document 11/09/23 16:10 [facility] (Rec: 11/09/23 18:09 [facility] [id number]) Hip Strength Hip Manual Muscle Testing Right Flexion (L2) 4+ Good+ Extension (S1) 4 Good Abduction 4+ Good+ Adduction 5 Normal External Rotation 4 Good Internal Rotation 5 Normal Comments pain groin w/ER Left Flexion (L2) 4+ Good+ Extension (S1) 4 Good Abduction 4+ Good+ Adduction 4+ Good+ External Rotation 5 Normal Internal Rotation 5 Normal Comments B 5/5 kne strength PT-OP-Q Treatments Start: 08/20/23 17:36 Freq: Status: Active Protocol: Document 11/09/23 16:10 [facility] (Rec: 11/09/23 18:09 [facility] [id number]) Therapeutic Exercises Standing Exercises stretch Standing Exercise Name hip flexor Side right Reps/Minutes 30sec x2 Other Exercises isometrics Other Exercise Name MMT LEs Side bilateral Manual Therapy Treatment Consent Patient gave verbal consent for manual Yes treatment Soft Tissue Mobilization hip flexor Body Location r iliacus orgin and insertion Mobilization Type Sustained Pressure Intensity/Depth Moderate Body Position Supine Add Body Location R Add jayden, longus Mobilization Type Instrument Assisted,Rolling, Sustained Pressure Intensity/Depth Moderate Body Position Hooklying Comments w/ER and flexion Joint Mobilizations innominate Joint R flex FM Grade II Body Position Hooklying Hip Comments R inf and free the ball hooklying FM PT-OP-T Assessment and Plan Start: 08/20/23 17:36 Freq: Status: Active Protocol: Document 11/09/23 16:10 [facility] (Rec: 11/09/23 16:19 [facility] [id number]) Physical Therapy Assessment Goals KELI Impairment 32% Short Term Goal (STG) Pt will improve KELI score to no greater than 24% in order to show improved functional capacity. 09/23-36% STG Duration achieved to 16% Alf Goal (LTG) Pt will improve KELI score to no greater than 4% in order to show improved functional capacity. 11/08-16% LTG Duration 12/20 strength Short Term Goal (STG) Pt will be indep w/HEP for dec pain, strength and mobility. STG Duration achieved 09/23 advancing as able Alf Goal (LTG) Pt will score at least 4+/5 on BLE MMT in order to allow her to participate in her ADLs w/ o inc hip/leg pain. 09/23-improved 11/08-improved LTG Duration 12/20 sleep Short Term Goal (STG) Pt will be educated and follow education re: sleep posture and positioning along w/shoe lift and orthotics (as needed) STG Duration achieved Alf Goal (LTG) Pt will be able to sleep fully through the night w/o waking d/t pain or waking up w/pain. 09/23- still not comfortable in bed. Wakes up when she has to move. SLeeps 11-130/2; very disturbed LTG Duration achieved 11/08 sitting Short Term Goal (STG) Pt will be able to sit and have full hip ROM in order to don/doff shoes/socks w/o inc pain. STG Duration Achievied 09/21 Alf Goal (LTG) Pt will be able to sit long periods w/o inc pain in order to facilitate ease w/travel in fall and ability to knit 09/23-pain in car 09/23-can sit longer now -can do about 30-45 min before getting up; car painful but truck okay LTG Duration achieved 11/08 Assessment Summary Assessment Pt is progressingw ell with goals but is limited still w/ groin pain occasional that gives sharp pain. She has limited hip flex and ER that will cause onset of this pain. Pt had improved ROM after session today.S he would benefit from cont skilled PT to further address hip pain Physical Therapy Plan Frequency and Duration Frequency of Treatment 1x/Week Duration of treatment (weeks) 6 Plan of Care Start Date 11/09/23 Plan of Care End Date 12/21/23 Therapeutic Interventions Therapeutic Interventions Balance Training,Gait Training ,Home Exercise Program,Joint Mobilizations,Manual Therapy, Neuromuscular Re-education, Orthotic/Prosthetic Management ,Patient/Caregiver Education, Self-Care/Home Management,Soft Tissue Mobilization,Taping, Therapeutic Activities, Therapeutic Exercises Modalities Cold Pack/Ice Massage,Electric Stimulation,Hot Packs, Traction- Mechanical, Ultrasound Next Visit Focus/Plan Next Note Type Treatment Note Next Visit Plan work on pt dec hip groin pain w/flex and ER; review exercises as needed
--- NOTE | 2023-11-09 18:12 | PT.OPPOC ---
Physical, Occupational & Speech Therapy At [facility] Current Diagnoses Malignant neoplasm of upper-outer quadrant of right female breast (11/09/23) Sciatica, unspecified side (11/09/23) Estrogen receptor positive status [ER+] (11/09/23) Visit Care Team Role Provider Type Bubba Jones MD Family Provider Physician Primary Care Provider Specialty: Family Practice Address: [address] [place] [address], [id number] Email: [email or web address] MIRNA Schreiber Attending Provider Non-Staff Referring Provider Specialty: Nursing [address]: [address] [place] [address] [place], [address] Fax: Email: Plan Of Care PT-OP-B Current Condition Start: 08/20/23 17:36 Freq: Status: Active Protocol: Document 08/24/23 13:00 [facility] (Rec: 08/24/23 14:35 [facility] [id number]) Current Condition History of Current Condition Onset Date Apr Current Complaints R leg and buttocks pain History of Current Condition Pt reports she started having leg pain in Apr and just came out of the blue one day. She has had history of sciatica 2.5 years ago. Pt rpeorts last time it was her R leg also. Last time, eventually went to chiro and massage therapy. It lasted 4 months. She started seeing the chiro about 2 months ago. Chiro attributes piriformis. This time, she has found soem youtube exercsies and chiro approved them but isn't sure she is doing them correctly. Occ, when she has a lot of pain, she does the clamshell but feels like it is just focusing on the exercise distracts her. Las tcouple of months has felt like L arch has fallen and when she is walking gets pain in arch and even sitting sometimes in bottom of foot. L foot gets swollen. Denies numbness or tingling. 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 Still hs 3 more months (done 3 others) of oral meds. 2020 breast cancer dx and had lumpectomy and is showing neg for further cancer . Dizziness with standing up. She has lost a lot of wt with keto diet for over a year. Was on BP med until Mar and is now on every other day dose. Feels good when get into bed and wakes up at 4 am so uncomfortable. Sleeps with pillow btwn knees but loses it by 4 am. No xrays done yet. Pt does have hx of B ovary removal and hysterectomy in 1996 with significant abodminal scar. She notes no GI distress when questioned, but does note heat pack to abdomen can help relieve pain Treatment Goals Patient/Caregiver Goals RV trips w/o pain. Has big trip in fall planned, get shoes/socks on easier, be able to sit to knit, sleep better PT-OP-T Assessment and Plan Start: 08/20/23 17:36 Freq: Status: Active Protocol: Document 11/09/23 16:10 [facility] (Rec: 11/09/23 16:19 [facility] [id number]) Physical Therapy Assessment Goals KELI Impairment 32% Short Term Goal (STG) Pt will improve KELI score to no greater than 24% in order to show improved functional capacity. 09/23-36% STG Duration achieved to 16% Residential Goal (LTG) Pt will improve KELI score to no greater than 4% in order to show improved functional capacity. 8-16% LTG Duration 12/20 strength Short Term Goal (STG) Pt will be indep w/HEP for dec pain, strength and mobility. STG Duration achieved 09/23 advancing as able Residential Goal (LTG) Pt will score at least 4+/5 on BLE MMT in order to allow her to participate in her ADLs w/ o inc hip/leg pain. 09/23-improved 8/-improved LTG Duration 12/20 sleep Short Term Goal (STG) Pt will be educated and follow education re: sleep posture and positioning along w/shoe lift and orthotics (as needed) STG Duration achieved Residential Goal (LTG) Pt will be able to sleep fully through the night w/o waking d/t pain or waking up w/pain. 09/23- still not comfortable in bed. Wakes up when she has to move. SLeeps 11-130/2; very disturbed LTG Duration achieved 8/ sitting Short Term Goal (STG) Pt will be able to sit and have full hip ROM in order to don/doff shoes/socks w/o inc pain. STG Duration Achievied 09/21 Residential Goal (LTG) Pt will be able to sit long periods w/o inc pain in order to facilitate ease w/travel in fall and ability to knit 09/23-pain in car 09/23-can sit longer now -can do about 30-45 min before getting up; car painful but truck okay LTG Duration achieved 11/08 Assessment Summary Assessment Pt is progressingw ell with goals but is limited still w/ groin pain occasional that gives sharp pain. She has limited hip flex and ER that will cause onset of this pain. Pt had improved ROM after session today.S he would benefit from cont skilled PT to further address hip pain Physical Therapy Plan Frequency and Duration Frequency of Treatment 1x/Week Duration of treatment (weeks) 6 Plan of Care Start Date 11/09/23 Plan of Care End Date 12/21/23 Therapeutic Interventions Therapeutic Interventions Balance Training,Gait Training ,Home Exercise Program,Joint Mobilizations,Manual Therapy, Neuromuscular Re-education, Orthotic/Prosthetic Management ,Patient/Caregiver Education, Self-Care/Home Management,Soft Tissue Mobilization,Taping, Therapeutic Activities, Therapeutic Exercises Modalities Cold Pack/Ice Massage,Electric Stimulation,Hot Packs, Traction- Mechanical, Ultrasound Next Visit Focus/Plan Next Note Type Treatment Note Next Visit Plan work on pt dec hip groin pain w/flex and ER; review exercises as needed Plan of Care Dates Plan of Care Start Date 11/09/23 Plan of Care End Date 12/21/23 Electronically Signed by: Moriah Solis, PT 11/09/23 5222 If you are in agreement with this Plan of Care, please return a signed and dated copy. I have reviewed this Plan of Care and certify that the skilled therapy services above are required to meet the patient?s needs. Physician Signature Date Printed Name and Credentials Clinical Instructor Signature Printed Name and Credentials
--- NOTE | 2023-11-17 13:16 | PT.OTN ---
Current Diagnoses Malignant neoplasm of upper-outer quadrant of right female breast (11/17/23) Sciatica, unspecified side (11/17/23) Estrogen receptor positive status [ER+] (11/17/23) Physical Therapy Treatment Note PT-OP-A Visit Information Start: 08/20/23 17:36 Freq: Status: Active Protocol: Document 11/17/23 08:10 [facility] (Rec: 11/17/23 09:48 [facility] [id number]) Out-Patient Physical Therapy Visit Information Visit Information Visit Type Treatment Note Visit Note Access Code: [email or web address] Visit Start Time 09:04 Visit Stop Time 09:46 Visit Number 19 Number of HIGH SCHOOL ART TEACHER Visits 1 PT-OP-B Current Condition Start: 08/20/23 17:36 Freq: Status: Active Protocol: Document 08/24/23 13:00 [facility] (Rec: 08/24/23 14:35 [facility] [id number]) Current Condition History of Current Condition Onset Date Apr Current Complaints R leg and buttocks pain History of Current Condition Pt reports she started having leg pain in Apr and just came out of the blue one day. She has had history of sciatica 2.5 years ago. Pt rpeorts last time it was her R leg also. Last time, eventually went to chiro and massage therapy. It lasted 4 months. She started seeing the chiro about 2 months ago. Chiro attributes piriformis. This time, she has found soem youtube exercsies and chiro approved them but isn't sure she is doing them correctly. Occ, when she has a lot of pain, she does the clamshell but feels like it is just focusing on the exercise distracts her. Las kofiple of months has felt like L arch has fallen and when she is walking gets pain in arch and even sitting sometimes in bottom of foot. L foot gets swollen. Denies numbness or tingling. 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 Still hs 3 more months (done 3 others) of oral meds. 2020 breast cancer dx and had lumpectomy and is showing neg for further cancer . Dizziness with standing up. She has lost a lot of wt with keto diet for over a year. Was on BP med until Mar and is now on every other day dose. Feels good when get into bed and wakes up at 4 am so uncomfortable. Sleeps with pillow btwn knees but loses it by 4 am. No xrays done yet. Pt does have hx of B ovary removal and hysterectomy in 1996 with significant abodminal scar. She notes no GI distress when questioned, but does note heat pack to abdomen can help relieve pain Treatment Goals Patient/Caregiver Goals RV trips w/o pain. Has big trip in fall planned, get shoes/socks on easier, be able to sit to knit, sleep better PT-OP-C Subjective Start: 08/20/23 17:36 Freq: Status: Active Protocol: Document 11/17/23 08:10 [facility] (Rec: 11/17/23 09:48 [facility] [id number]) OP-PT Subjective Patient Comments Patient Comments Patient reports having increased groin pain post sit to stand on Thursday, took pain medication, reports pain is now 1/10 right hip. PT-OP-F Manual Assessment Start: 08/20/23 17:36 Freq: Status: Active Protocol: Document 08/24/23 13:00 [facility] (Rec: 08/24/23 14:35 [facility] [id number]) Manual Assessments Joint Mobility Assessment Joint Mobility Assessment dec hip abd mobility PT-OP-J Posture/Palpation/Skin Start: 08/20/23 17:36 Freq: Status: Active Protocol: Document 08/24/23 13:00 [facility] (Rec: 08/24/23 14:35 [facility] [id number]) Posture Evaluation Comments Posture Comments Wt shifted to L, L knee valgus , R foot turned, R rot, R pelvic shear; R iliac crest elevated & greater troch PT-OP-K Range of Motion Start: 08/20/23 17:36 Freq: Status: Active Protocol: Document 08/24/23 13:00 [facility] (Rec: 08/24/23 14:35 [facility] [id number]) Lumbar Spine Range of Motion Lumbar Spine Active Percentage Flexion 75 Extension 75 Rotation Left 80 Rotation Right 60 Lateral Flexion Left 90 Lateral Flexion Right 50 Comments pain B buttocks flex/ex PT-OP-L Special Tests Start: 08/20/23 17:36 Freq: Status: Active Protocol: Document 08/24/23 13:00 [facility] (Rec: 08/24/23 14:35 [facility] [id number]) Special Tests Lumbar Spine Special Tests march Test Results pos L Slump Test Results pos R PT-OP-M Strength Start: 08/20/23 17:36 Freq: Status: Active Protocol: Document 11/09/23 16:10 [facility] (Rec: 11/09/23 18:09 [facility] [id number]) Hip Strength Hip Manual Muscle Testing Right Flexion (L2) 4+ Good+ Extension (S1) 4 Good Abduction 4+ Good+ Adduction 5 Normal External Rotation 4 Good Internal Rotation 5 Normal Comments pain groin w/ER Left Flexion (L2) 4+ Good+ Extension (S1) 4 Good Abduction 4+ Good+ Adduction 4+ Good+ External Rotation 5 Normal Internal Rotation 5 Normal Comments B 5/5 kne strength PT-OP-Q Treatments Start: 08/20/23 17:36 Freq: Status: Active Protocol: Document 11/17/23 08:10 [facility] (Rec: 11/17/23 09:48 [facility] [id number]) Therapeutic Exercises Supine Exercises hip abd with band Supine Exercise Name from hooklying Side bilateral Resistance Pt's seaglass band Reps/Minutes X16 also one one minute hold Stretch Supine Exercise Name 1. Piriformis 2. knee to chest with towel roll for gapping Side bilateral Reps/Minutes 60 seconds X each LE Comments right LE requires towel roll for gapping Sidelying Exercises reverse clamshell Side bilateral Equipment Used pt's seaglass band Reps/Minutes X16 clamshells Side bilateral Resistance pt's seaglass band Reps/Minutes X16 Manual Therapy Treatment Soft Tissue Mobilization hip flexor Body Location Right Mobilization Type Sustained Pressure Intensity/Depth Moderate Body Position Supine glute Body Location glute & piriformis right Mobilization Type Cross-Friction,Rolling, Sustained Pressure Intensity/Depth Moderate Body Position Sidelying Manual Techniques right hip PROM Reps/Duration contract relax X 3 MET for right AI left PI and pubic shot gun Reps/Duration 6 sec X 6 each PT-OP-T Assessment and Plan Start: 08/20/23 17:36 Freq: Status: Active Protocol: Document 11/17/23 08:10 [facility] (Rec: 11/17/23 09:48 [facility] [id number]) Physical Therapy Assessment Goals KELI Impairment 32% Short Term Goal (STG) Pt will improve KELI score to no greater than 24% in order to show improved functional capacity. 6/20-36% STG Duration achieved to 16% Senior Living Goal (LTG) Pt will improve KELI score to no greater than 4% in order to show improved functional capacity. 11/08-16% LTG Duration 12/20 strength Short Term Goal (STG) Pt will be indep w/HEP for dec pain, strength and mobility. STG Duration achieved 09/23 advancing as able Senior Living Goal (LTG) Pt will score at least 4+/5 on BLE MMT in order to allow her to participate in her ADLs w/ o inc hip/leg pain. 09/23-improved 11/08-improved LTG Duration 12/20 sleep Short Term Goal (STG) Pt will be educated and follow education re: sleep posture and positioning along w/shoe lift and orthotics (as needed) STG Duration achieved Bad Cloth Checker Goal (LTG) Pt will be able to sleep fully through the night w/o waking d/t pain or waking up w/pain. 09/23- still not comfortable in bed. Wakes up when she has to move. SLeeps 11-130/2; very disturbed LTG Duration achieved 11/08 sitting Short Term Goal (STG) Pt will be able to sit and have full hip ROM in order to don/doff shoes/socks w/o inc pain. STG Duration Achievied 09/21 Bad Cloth Checker Goal (LTG) Pt will be able to sit long periods w/o inc pain in order to facilitate ease w/travel in fall and ability to knit 09/23-pain in car 09/23-can sit longer now -can do about 30-45 min before getting up; car painful but truck okay LTG Duration achieved 11/08 Assessment Summary Assessment Patient reports having no pain end of session. Physical Therapy Plan Frequency and Duration Frequency of Treatment 1x/Week Duration of treatment (weeks) 6 Plan of Care Start Date 11/09/23 Plan of Care End Date 12/21/23 Next Visit Focus/Plan Next Note Type Treatment Note Next Visit Plan work on pt dec hip groin pain w/flex and ER; review exercises as needed, add retro stepping to HEP
--- NOTE | 2023-11-26 14:25 | PT.OTN ---
Current Diagnoses Malignant neoplasm of upper-outer quadrant of right female breast (11/26/23) Sciatica, unspecified side (11/26/23) Estrogen receptor positive status [ER+] (11/26/23) Physical Therapy Treatment Note PT-OP-A Visit Information Start: 08/20/23 17:36 Freq: Status: Active Protocol: Document 11/26/23 13:00 AB (Rec: 11/26/23 13:46 AB [id number]) Out-Patient Physical Therapy Visit Information Visit Information Visit Type Treatment Note Visit Note Access Code: [email or web address] Visit Start Time 13:02 Visit Stop Time 13:45 Visit Number 20 Number of REAL ESTATE MANAGER Visits 2 PT-OP-B Current Condition Start: 08/20/23 17:36 Freq: Status: Active Protocol: Document 08/24/23 13:00 [facility] (Rec: 08/24/23 14:35 [facility] [id number]) Current Condition History of Current Condition Onset Date Apr Current Complaints R leg and buttocks pain History of Current Condition Pt reports she started having leg pain in Apr and just came out of the blue one day. She has had history of sciatica 2.5 years ago. Pt rpeorts last time it was her R leg also. Last time, eventually went to chiro and massage therapy. It lasted 4 months. She started seeing the chiro about 2 months ago. Chiro attributes piriformis. This time, she has found soem youtube exercsies and chiro approved them but isn't sure she is doing them correctly. Occ, when she has a lot of pain, she does the clamshell but feels like it is just focusing on the exercise distracts her. [place] of months has felt like L arch has fallen and when she is walking gets pain in arch and even sitting sometimes in bottom of foot. L foot gets swollen. Denies numbness or tingling. 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 Still hs 3 more months (done 3 others) of oral meds. 2020 breast cancer dx and had lumpectomy and is showing neg for further cancer . Dizziness with standing up. She has lost a lot of wt with keto diet for over a year. Was on BP med until Mar and is now on every other day dose. Feels good when get into bed and wakes up at 4 am so uncomfortable. Sleeps with pillow btwn knees but loses it by 4 am. No xrays done yet. Pt does have hx of B ovary removal and hysterectomy in 1996 with significant abodminal scar. She notes no GI distress when questioned, but does note heat pack to abdomen can help relieve pain Treatment Goals Patient/Caregiver Goals RV trips w/o pain. Has big trip in fall planned, get shoes/socks on easier, be able to sit to knit, sleep better PT-OP-C Subjective Start: 08/20/23 17:36 Freq: Status: Active Protocol: Document 11/26/23 13:00 AB (Rec: 11/26/23 13:46 [id number]) OP-PT Subjective Patient Comments Patient Comments Patient reports she had a pain lateral right hip, but has not been having much pain, little bit of groin pain. Patient reports the mattress in trailer when camping was better than mattress in home. Patient reports a little groin pain bringing right foot up as if to take off shoe. PT-OP-F Manual Assessment Start: 08/20/23 17:36 Freq: Status: Active Protocol: Document 08/24/23 13:00 [facility] (Rec: 08/24/23 14:35 [facility] [id number]) Manual Assessments Joint Mobility Assessment Joint Mobility Assessment dec hip abd mobility PT-OP-J Posture/Palpation/Skin Start: 08/20/23 17:36 Freq: Status: Active Protocol: Document 08/24/23 13:00 [facility] (Rec: 08/24/23 14:35 [facility] [id number]) Posture Evaluation Comments Posture Comments Wt shifted to L, L knee valgus , R foot turned, R rot, R pelvic shear; R iliac crest elevated & greater troch PT-OP-K Range of Motion Start: 08/20/23 17:36 Freq: Status: Active Protocol: Document 08/24/23 13:00 [facility] (Rec: 08/24/23 14:35 [facility] [id number]) Lumbar Spine Range of Motion Lumbar Spine Active Percentage Flexion 75 Extension 75 Rotation Left 80 Rotation Right 60 Lateral Flexion Left 90 Lateral Flexion Right 50 Comments pain B buttocks flex/ex PT-OP-L Special Tests Start: 08/20/23 17:36 Freq: Status: Active Protocol: Document 08/24/23 13:00 [facility] (Rec: 08/24/23 14:35 [facility] [id number]) Special Tests Lumbar Spine Special Tests march Test Results pos L Slump Test Results pos R PT-OP-M Strength Start: 08/20/23 17:36 Freq: Status: Active Protocol: Document 11/09/23 16:10 [facility] (Rec: 11/09/23 18:09 [facility] [id number]) Hip Strength Hip Manual Muscle Testing Right Flexion (L2) 4+ Good+ Extension (S1) 4 Good Abduction 4+ Good+ Adduction 5 Normal External Rotation 4 Good Internal Rotation 5 Normal Comments pain groin w/ER Left Flexion (L2) 4+ Good+ Extension (S1) 4 Good Abduction 4+ Good+ Adduction 4+ Good+ External Rotation 5 Normal Internal Rotation 5 Normal Comments B 5/5 kne strength PT-OP-Q Treatments Start: 08/20/23 17:36 Freq: Status: Active Protocol: Document 11/26/23 13:00 AB (Rec: 11/26/23 13:46 AB [id number]) Therapeutic Exercises Supine Exercises Kemar stretch Supine Exercise Name HEP Edge of bed opp knee to chest Side left Reps/Minutes 60 seconds X 2 Comments with AROM knee flexion figure 4 stretch Supine Exercise Name figure 4/piriformis Reps/Minutes 2x60 Comments feels good stretch in piri, some pain with figure 4 stretch on R side Sitting Exercises IR AROM Sitting Exercise Name HEP Side bilateral Reps/Minutes X10 Comments verbal and visual cues Seated hip abduction with band Sitting Exercise Name HEP Side bilateral Resistance level2 band Reps/Minutes one minute X 1 Standing Exercises retro stepping Standing Exercise Name with UE support HEP Resistance seaglass band Reps/Minutes 2 minutes Manual Therapy Treatment Soft Tissue Mobilization hip flexor Body Location Right Mobilization Type Cross-Friction,Rolling Intensity/Depth Moderate Body Position Supine glute Body Location glute & piriformis right Mobilization Type Cross-Friction,Rolling, Sustained Pressure Intensity/Depth Moderate Body Position Sidelying Manual Techniques contract relax Type 1. flexor R 2. piriformis R Body Location right hip Body Position Hooklying Reps/Duration X2 each MET for right AI left PI and pubic shot gun Body Position Sitting Comments MET for right AI left PI only 6X 6 seated/modified PT-OP-T Assessment and Plan Start: 08/20/23 17:36 Freq: Status: Active Protocol: Document 11/26/23 13:00 AB (Rec: 11/26/23 13:46 AB [id number]) Physical Therapy Assessment Goals KELI Impairment 32% Short Term Goal (STG) Pt will improve KELI score to no greater than 24% in order to show improved functional capacity. 09/23-36% STG Duration achieved to 16% Group Home Goal (LTG) Pt will improve KELI score to no greater than 4% in order to show improved functional capacity. 8-16% LTG Duration 12/20 strength Short Term Goal (STG) Pt will be indep w/HEP for dec pain, strength and mobility. STG Duration achieved 09/23 advancing as able Account Manager [employer] Goal (LTG) Pt will score at least 4+/5 on BLE MMT in order to allow her to participate in her ADLs w/ o inc hip/leg pain. 09/23-improved 11/08-improved LTG Duration 12/20 sleep Short Term Goal (STG) Pt will be educated and follow education re: sleep posture and positioning along w/shoe lift and orthotics (as needed) STG Duration achieved Group Home Goal (LTG) Pt will be able to sleep fully through the night w/o waking d/t pain or waking up w/pain. 09/23- still not comfortable in bed. Wakes up when she has to move. SLeeps 11-130/2; very disturbed LTG Duration achieved 8/5 sitting Short Term Goal (STG) Pt will be able to sit and have full hip ROM in order to don/doff shoes/socks w/o inc pain. STG Duration Achievied 09/21 Account Manager [employer] Goal (LTG) Pt will be able to sit long periods w/o inc pain in order to facilitate ease w/travel in fall and ability to knit 09/23-pain in car 09/23-can sit longer now -can do about 30-45 min before getting up; car painful but truck okay LTG Duration achieved 8 Assessment Summary Assessment Patient reports pain is the same end of with positioning foot as if to tie shoe right LE, but with self MET performed end of session less pain pain with same movement. Physical Therapy Plan Frequency and Duration Frequency of Treatment 1x/Week Duration of treatment (weeks) 6 Plan of Care Start Date 11/09/23 Plan of Care End Date 12/21/23 Next Visit Focus/Plan Next Note Type Treatment Note Next Visit Plan work on pt dec hip groin pain w/flex and ER; review exercises as needed, Self MET for right AI left PI
--- NOTE | 2023-12-02 09:54 | PT.OTN ---
Current Diagnoses Malignant neoplasm of upper-outer quadrant of right female breast (12/02/23) Sciatica, unspecified side (12/02/23) Estrogen receptor positive status [ER+] (12/02/23) Physical Therapy Treatment Note PT-OP-A Visit Information Start: 08/20/23 17:36 Freq: Status: Active Protocol: Document 12/02/23 08:12 AB (Rec: 12/02/23 09:54 AB [id number]) Out-Patient Physical Therapy Visit Information Visit Information Visit Type Treatment Note Visit Note Access Code: [email or web address] Visit Start Time 09:06 Visit Stop Time 09:50 Visit Number 21 Number of CORE COMPOSER FEEDER Visits 3 PT-OP-B Current Condition Start: 08/20/23 17:36 Freq: Status: Active Protocol: Document 08/24/23 13:00 [facility] (Rec: 08/24/23 14:35 [facility] [id number]) Current Condition History of Current Condition Onset Date Apr Current Complaints R leg and buttocks pain History of Current Condition Pt reports she started having leg pain in Apr and just came out of the blue one day. She has had history of sciatica 2.5 years ago. Pt rpeorts last time it was her R leg also. Last time, eventually went to chiro and massage therapy. It lasted 4 months. She started seeing the chiro about 2 months ago. Chiro attributes piriformis. This time, she has found soem youtube exercsies and chiro approved them but isn't sure she is doing them correctly. Occ, when she has a lot of pain, she does the clamshell but feels like it is just focusing on the exercise distracts her. [place] of months has felt like L arch has fallen and when she is walking gets pain in arch and even sitting sometimes in bottom of foot. L foot gets swollen. Denies numbness or tingling. 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 Still hs 3 more months (done 3 others) of oral meds. 2020 breast cancer dx and had lumpectomy and is showing neg for further cancer . Dizziness with standing up. She has lost a lot of wt with keto diet for over a year. Was on BP med until Mar and is now on every other day dose. Feels good when get into bed and wakes up at 4 am so uncomfortable. Sleeps with pillow btwn knees but loses it by 4 am. No xrays done yet. Pt does have hx of B ovary removal and hysterectomy in 1996 with significant abodminal scar. She notes no GI distress when questioned, but does note heat pack to abdomen can help relieve pain Treatment Goals Patient/Caregiver Goals RV trips w/o pain. Has big trip in fall planned, get shoes/socks on easier, be able to sit to knit, sleep better PT-OP-C Subjective Start: 08/20/23 17:36 Freq: Status: Active Protocol: Document 12/02/23 08:12 AB (Rec: 12/02/23 09:54 AB [id number]) OP-PT Subjective Patient Comments Patient Comments Patient reports she is better, comments that she is very tired attributes to her anemia being worse. Patient reports she hasn't done the exercises the past 4-5 days. Patient rates hip pain 2/10 right hip with crossing as if to david/ doff shoe. PT-OP-F Manual Assessment Start: 08/20/23 17:36 Freq: Status: Active Protocol: Document 08/24/23 13:00 [facility] (Rec: 08/24/23 14:35 [facility] [id number]) Manual Assessments Joint Mobility Assessment Joint Mobility Assessment dec hip abd mobility PT-OP-J Posture/Palpation/Skin Start: 08/20/23 17:36 Freq: Status: Active Protocol: Document 08/24/23 13:00 [facility] (Rec: 08/24/23 14:35 [facility] [id number]) Posture Evaluation Comments Posture Comments Wt shifted to L, L knee valgus , R foot turned, R rot, R pelvic shear; R iliac crest elevated & greater troch PT-OP-K Range of Motion Start: 08/20/23 17:36 Freq: Status: Active Protocol: Document 08/24/23 13:00 [facility] (Rec: 08/24/23 14:35 [facility] [id number]) Lumbar Spine Range of Motion Lumbar Spine Active Percentage Flexion 75 Extension 75 Rotation Left 80 Rotation Right 60 Lateral Flexion Left 90 Lateral Flexion Right 50 Comments pain B buttocks flex/ex PT-OP-L Special Tests Start: 08/20/23 17:36 Freq: Status: Active Protocol: Document 08/24/23 13:00 [facility] (Rec: 08/24/23 14:35 [facility] [id number]) Special Tests Lumbar Spine Special Tests march Test Results pos L Slump Test Results pos R PT-OP-M Strength Start: 08/20/23 17:36 Freq: Status: Active Protocol: Document 11/09/23 16:10 [facility] (Rec: 11/09/23 18:09 [facility] [id number]) Hip Strength Hip Manual Muscle Testing Right Flexion (L2) 4+ Good+ Extension (S1) 4 Good Abduction 4+ Good+ Adduction 5 Normal External Rotation 4 Good Internal Rotation 5 Normal Comments pain groin w/ER Left Flexion (L2) 4+ Good+ Extension (S1) 4 Good Abduction 4+ Good+ Adduction 4+ Good+ External Rotation 5 Normal Internal Rotation 5 Normal Comments B 5/5 kne strength PT-OP-Q Treatments Start: 08/20/23 17:36 Freq: Status: Active Protocol: Document 12/02/23 08:12 AB (Rec: 12/02/23 09:54 AB [id number]) Therapeutic Exercises Supine Exercises Kemar stretch Supine Exercise Name HEP Edge of bed opp knee to chest Side left Reps/Minutes 60 seconds X 2 Comments with AROM knee flexion figure 4 stretch Supine Exercise Name figure 4/piriformis Reps/Minutes 1x60 Stretch Supine Exercise Name 1. Piriformis 2. knee to chest with towel roll for gapping Side right Reps/Minutes 60 seconds X 1 Sidelying Exercises reverse clamshell Side bilateral Equipment Used pt's seaglass band Reps/Minutes X10 clamshells Side bilateral Resistance pt's seaglass band Reps/Minutes X10 Manual Therapy Treatment Soft Tissue Mobilization hip flexor Body Location Right Mobilization Type Cross-Friction,Rolling Intensity/Depth Moderate Body Position Supine glute Body Location glute & piriformis right Mobilization Type Cross-Friction,Rolling, Sustained Pressure Intensity/Depth Moderate Body Position Sidelying Manual Techniques MET for right AI left PI and pubic shot gun Type HEP Body Position Hooklying Comments MET for right AI left PI hooklying 6X 6 pubic shotgun hooklying then also performed seated for HEP review. PT-OP-T Assessment and Plan Start: 08/20/23 17:36 Freq: Status: Active Protocol: Document 12/02/23 08:12 AB (Rec: 12/02/23 09:54 AB [id number]) Physical Therapy Assessment Goals KELI Impairment 32% Short Term Goal (STG) Pt will improve KELI score to no greater than 24% in order to show improved functional capacity. 09/23-36% STG Duration achieved to 16% Punch Press Operator Helper Goal (LTG) Pt will improve KELI score to no greater than 4% in order to show improved functional capacity. 8-16% LTG Duration 12/20 strength Short Term Goal (STG) Pt will be indep w/HEP for dec pain, strength and mobility. STG Duration achieved 09/23 advancing as able Correction Goal (LTG) Pt will score at least 4+/5 on BLE MMT in order to allow her to participate in her ADLs w/ o inc hip/leg pain. 09/23-improved 11/08-improved LTG Duration 12/20 sleep Short Term Goal (STG) Pt will be educated and follow education re: sleep posture and positioning along w/shoe lift and orthotics (as needed) STG Duration achieved Correction Goal (LTG) Pt will be able to sleep fully through the night w/o waking d/t pain or waking up w/pain. 09/23- still not comfortable in bed. Wakes up when she has to move. SLeeps 11-130/2; very disturbed LTG Duration achieved 8 sitting Short Term Goal (STG) Pt will be able to sit and have full hip ROM in order to don/doff shoes/socks w/o inc pain. STG Duration Achievied 09/21 Correction Goal (LTG) Pt will be able to sit long periods w/o inc pain in order to facilitate ease w/travel in fall and ability to knit 09/23-pain in car 09/23-can sit longer now -can do about 30-45 min before getting up; car painful but truck okay LTG Duration achieved 8 Assessment Summary Assessment Patient reports having no right hip pain when crossing LE as if to tie shoes end of session. MET added to HEP. Physical Therapy Plan Frequency and Duration Frequency of Treatment 1x/Week Duration of treatment (weeks) 6 Plan of Care Start Date 11/09/23 Plan of Care End Date 12/21/23 Next Visit Focus/Plan Next Note Type Treatment Note Next Visit Plan work on pt dec hip groin pain w/flex and ER; review exercises as needed,
--- NOTE | 2023-12-09 12:19 | PT.OTN ---
Current Diagnoses Malignant neoplasm of upper-outer quadrant of right female breast (12/09/23) Sciatica, unspecified side (12/09/23) Estrogen receptor positive status [ER+] (12/09/23) Physical Therapy Treatment Note PT-OP-A Visit Information Start: 08/20/23 17:36 Freq: Status: Active Protocol: Document 12/09/23 11:19 [facility] (Rec: 12/09/23 12:18 [facility] [id number]) Out-Patient Physical Therapy Visit Information Visit Information Visit Type Discharge Summary Visit Start Time 11:20 Visit Stop Time 11:58 Visit Number 22 Number of CUSTOMER ACCOUNT EXECUTIVE Visits 0 PT-OP-B Current Condition Start: 08/20/23 17:36 Freq: Status: Active Protocol: Document 08/24/23 13:00 [facility] (Rec: 08/24/23 14:35 [facility] [id number]) Current Condition History of Current Condition Onset Date Apr Current Complaints R leg and buttocks pain History of Current Condition Pt reports she started having leg pain in Apr and just came out of the blue one day. She has had history of sciatica 2.5 years ago. Pt rpeorts last time it was her R leg also. Last time, eventually went to chiro and massage therapy. It lasted 4 months. She started seeing the chiro about 2 months ago. Chiro attributes piriformis. This time, she has found soem youtube exercsies and chiro approved them but isn't sure she is doing them correctly. Occ, when she has a lot of pain, she does the clamshell but feels like it is just focusing on the exercise distracts her. Las stephanieouple of months has felt like L arch has fallen and when she is walking gets pain in arch and even sitting sometimes in bottom of foot. L foot gets swollen. Denies numbness or tingling. 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 Still hs 3 more months (done 3 others) of oral meds. 2020 breast cancer dx and had lumpectomy and is showing neg for further cancer . Dizziness with standing up. She has lost a lot of wt with keto diet for over a year. Was on BP med until Mar and is now on every other day dose. Feels good when get into bed and wakes up at 4 am so uncomfortable. Sleeps with pillow btwn knees but loses it by 4 am. No xrays done yet. Pt does have hx of B ovary removal and hysterectomy in 1996 with significant abodminal scar. She notes no GI distress when questioned, but does note heat pack to abdomen can help relieve pain Treatment Goals Patient/Caregiver Goals RV trips w/o pain. Has big trip in fall planned, get shoes/socks on easier, be able to sit to knit, sleep better PT-OP-C Subjective Start: 08/20/23 17:36 Freq: Status: Active Protocol: Document 12/09/23 11:19 [facility] (Rec: 12/09/23 12:18 [facility] [id number]) OP-PT Subjective Patient Comments Patient Comments Pt reports hip and sciatica is doign well. She did get a new car. PT-OP-F Manual Assessment Start: 08/20/23 17:36 Freq: Status: Active Protocol: Document 08/24/23 13:00 [facility] (Rec: 08/24/23 14:35 [facility] [id number]) Manual Assessments Joint Mobility Assessment Joint Mobility Assessment dec hip abd mobility PT-OP-J Posture/Palpation/Skin Start: 08/20/23 17:36 Freq: Status: Active Protocol: Document 08/24/23 13:00 [facility] (Rec: 08/24/23 14:35 [facility] [id number]) Posture Evaluation Comments Posture Comments Wt shifted to L, L knee valgus , R foot turned, R rot, R pelvic shear; R iliac crest elevated & greater troch PT-OP-K Range of Motion Start: 08/20/23 17:36 Freq: Status: Active Protocol: Document 08/24/23 13:00 [facility] (Rec: 08/24/23 14:35 [facility] [id number]) Lumbar Spine Range of Motion Lumbar Spine Active Percentage Flexion 75 Extension 75 Rotation Left 80 Rotation Right 60 Lateral Flexion Left 90 Lateral Flexion Right 50 Comments pain B buttocks flex/ex PT-OP-L Special Tests Start: 08/20/23 17:36 Freq: Status: Active Protocol: Document 08/24/23 13:00 [facility] (Rec: 08/24/23 14:35 [facility] [id number]) Special Tests Lumbar Spine Special Tests march Test Results pos L Slump Test Results pos R PT-OP-M Strength Start: 08/20/23 17:36 Freq: Status: Active Protocol: Document 12/09/23 11:19 [facility] (Rec: 12/09/23 12:18 [facility] [id number]) Hip Strength Hip Manual Muscle Testing Right Flexion (L2) 4+ Good+ Extension (S1) 4 Good Abduction 5 Normal Adduction 5 Normal External Rotation 5 Normal Internal Rotation 5 Normal Left Flexion (L2) 4+ Good+ Extension (S1) 4+ Good+ Abduction 5 Normal Adduction 5 Normal External Rotation 5 Normal Internal Rotation 5 Normal PT-OP-Q Treatments Start: 08/20/23 17:36 Freq: Status: Active Protocol: Document 12/09/23 11:19 [facility] (Rec: 12/09/23 12:18 [facility] [id number]) Gym Equipment Shuttle Balance red clips Details finger use prn Comments fwd & side: WBOS & wt shifts ; NBOS fwd: staggered stance B balance Therapeutic Exercises Sidelying Exercises reverse clamshell Side bilateral Reps/Minutes X10 Comments cues for avoiding hips rolling fwd clamshells Side bilateral Reps/Minutes X10 Comments cues for head forward Standing Exercises retro stepping Standing Exercise Name encourage to be by wall/ counter Side bilateral Resistance seaglass band Reps/Minutes 20ftx8 Comments gradually dec band position to ankles Neuro Re-Education Treatment Balance Activities tandem Details b trials SLS Comments 1. SLS trails B 2. 3 point tap x10 B PT-OP-T Assessment and Plan Start: 08/20/23 17:36 Freq: Status: Active Protocol: Document 12/09/23 11:19 [facility] (Rec: 12/09/23 12:18 [facility] [id number]) Physical Therapy Assessment Goals KELI Impairment 32% Short Term Goal (STG) Pt will improve KELI score to no greater than 24% in order to show improved functional capacity. 6/20-36% STG Duration achieved to 16% Readiness Paraprofessional Goal (LTG) Pt will improve KELI score to no greater than 4% in order to show improved functional capacity. 8/5-16% LTG Duration achieved 0% strength Short Term Goal (STG) Pt will be indep w/HEP for dec pain, strength and mobility. STG Duration achieved 6/20 advancing as able Fpc Goal (LTG) Pt will score at least 4+/5 on BLE MMT in order to allow her to participate in her ADLs w/ o inc hip/leg pain. 09/23-improved 11/08-improved LTG Duration mostly achieved 12/08 sleep Short Term Goal (STG) Pt will be educated and follow education re: sleep posture and positioning along w/shoe lift and orthotics (as needed) STG Duration achieved Readiness Paraprofessional Goal (LTG) Pt will be able to sleep fully through the night w/o waking d/t pain or waking up w/pain. 09/23- still not comfortable in bed. Wakes up when she has to move. SLeeps 11-130/2; very disturbed LTG Duration achieved 11/08 sitting Short Term Goal (STG) Pt will be able to sit and have full hip ROM in order to don/doff shoes/socks w/o inc pain. STG Duration Achievied 09/21 Fpc Goal (LTG) Pt will be able to sit long periods w/o inc pain in order to facilitate ease w/travel in fall and ability to knit 09/23-pain in car 09/23-can sit longer now -can do about 30-45 min before getting up; car painful but truck okay LTG Duration achieved 11/08 Assessment Summary Assessment Pt is indep w/HEP and was given further balance work and DC to HEP at this time. No pain any more and pt has met all goals Physical Therapy Plan Discharge Physical Therapy Discharge Reasons Goals Met
== END 2023-12-23 08:06 | disposition home or self-care (01) ==
LOC: PHYS 11:15
PROVIDERS: Family Provider Family Medicine; PCP Family Medicine; Referring Provider Nurse Practitioner Family; Visit Provider Nurse Practitioner Family
DX: M54.30 Sciatica, unspecified side (principal); C50.411 Malignant neoplasm of upper-outer quadrant of right female breast; Z17.0 Estrogen receptor positive status [ER+]
CPT/HCPCS: 97110; 97112; 97140; 97162; 97530; 97535

== ENCOUNTER → 2023-12-14 08:41 | Outpatient (CLI) | payer MEDICARE, OTHER, SELFPAY | PROVIDERS: Family Provider Family Medicine; PCP Family Medicine; Visit Provider Registered Nurse | DX: R30.0 Dysuria (principal) | CPT/HCPCS: 87077; 87086; 87186 ==

== ENCOUNTER → 2024-02-26 07:04 | Outpatient (CLI) | payer MEDICARE, OTHER, SELFPAY ==
[2024-02-26 07:58] LABS: Add Manual Diff / Slide Review NO; Basophils Absolute Auto 100 /uL (0-100); Basophils Percent Auto 1.7 % (0-2); Eosinophils Absolute Auto 100 /uL (0-450); Eosinophils Percent Auto 2.7 % (2-4); Hemoglobin 10.7 g/dL (12.0-16.0); Lymphocytes Absolute Auto 1400 /uL (1100-4500); Lymphocytes Percent Auto 28.6 % (25-40); Mean Corpuscular HGB Conc 32.4 % (30-36); Mean Corpuscular Hemoglobin 24.8 PG (26-34); Mean Corpuscular Volume 76.3 fL (80-100); Monocytes Absolute Auto 600 /uL (0-900); Monocytes Percent Auto 11.9 % (3-14); Neutrophils Absolute Auto 2700 /uL (1500-7000); Neutrophils Percent Auto 55.1 % (50-75); Platelet Count 203 X10^3/uL (150-400); Red Blood Cell Count 4.32 X10^6/uL (4.0-5.2); Red Cell Distribution Width 15.8 % (11.6-14.8); White Blood Cell Count 4.9 X10^3/uL (4.5-11.0)
[2024-02-26 08:22] LABS: Alanine Aminotransferase 27 IU/L (<35); Albumin 4.4 g/dL (3.5-5.0); Albumin Globulin Ratio 2.3 (1.0-2.8); Alkaline Phosphatase 114 U/L (38-126); Aspartate Aminotransferase 31 IU/L (14-36); BUN Creatinine Ratio 25.6 (6-22); Bilirubin Total 0.5 mg/dL (0.2-1.3); Blood Urea Nitrogen 21 mg/dL (7-17); Calcium 10.3 mg/dL (8.4-10.2); Carbon Dioxide 28 mmol/L (22-32); Chloride 101 mmol/L (98-107); Cholesterol 202 mg/dL (140-199); Estimated Glomerular Filt Rate > 60 mL/min (>60); Globulin 1.9 g/dL (1.7-4.1); Glucose 93 mg/dL (80-110); HDL Cholesterol 74 mg/dL (40-60); HEMOLYSIS < 15 (0-50); LDL Cholesterol Calculated 111 mg/dL (<100); Potassium 3.7 mmol/L (3.4-5.1); Sodium 138 mmol/L (137-145); Total Protein 6.3 g/dL (6.3-8.2); Triglycerides 83 mg/dL (35-150)
[2024-02-27 04:36] LABS: Apolipoprotein B 87 mg/dL (<90)
== END ==
PROVIDERS: Family Provider Family Medicine; PCP Family Medicine; Referring Provider Family Medicine; Visit Provider Family Medicine
DX: E78.5 Hyperlipidemia, unspecified (principal); C91.10 Chronic lymphocytic leukemia of B-cell type not having achieved remission; C50.919 Malignant neoplasm of unspecified site of unspecified female breast; I10 Essential (primary) hypertension
CPT/HCPCS: 36415; 80053; 80061; 82172; 84443; 85025

== ENCOUNTER → 2024-09-29 11:03 | Outpatient (CLI) | payer MEDICARE, OTHER, SELFPAY ==
--- NOTE | 2024-09-29 11:06 | DI.RAD.S_ITS ---
PROCEDURE: XR WRIST RT MIN 3V INDICATIONS: right radius fracture and right hip fracture s/p repair TECHNIQUE: 2 views of the wrist were acquired. COMPARISON: None. FINDINGS: Bones: Dorsal plate and screws extend from the 2nd metacarpal diaphysis to the mid radial diaphysis ostensibly transfixing distal radial fracture. The transverse fracture of the distal radial metaphysis shows minimal angulation and is subtotally unified. Old fracture ulnar styloid process tip noted. Joints: Mild distal radioulnar radiocarpal STT and moderate 1st CMC degenerative change noted Soft tissues: No soft tissue abnormality. IMPRESSION: Subtotally unified distal radial metaphyseal fracture . Dictated by: Abel Oneal M.D. on 09/30/2024 at 12:08 Approved by: Abel Oneal M.D. on 09/30/2024 at 12:10
--- NOTE | 2024-09-29 11:06 | DI.RAD.S_ITS ---
PROCEDURE: XR FOREARM RT 2V INDICATIONS: right radius fracture and right hip fracture s/p repair TECHNIQUE: 2 views of the forearm were acquired. COMPARISON: None. FINDINGS: Bones: Transverse fracture through the distal radial metaphysis shows subtotally unified occasion. There is mild displaced and reversal of the normal volar articular angle to the dorsal plane. Plate and screws transfix the 2nd metacarpal to the mid radius. Fracture of the ulnar styloid process seen Joints: Moderate distal radioulnar, moderate radiocarpal , severe STT and 1st CMC degeneration again noted Soft tissues: No soft tissue abnormality. IMPRESSION: Mildly displaced angulated fracture distal radius showing subtotal unified occasion. Dictated by: Abel Oneal M.D. on 09/30/2024 at 12:05 Approved by: Abel Oneal M.D. on 09/30/2024 at 12:07
--- NOTE | 2024-09-29 11:06 | DI.RAD.S_ITS ---
PROCEDURE: XR HIP W PEL IF DONE RT 2V INDICATIONS: right radius fracture and right hip fracture s/p repair TECHNIQUE: AP pelvis with lateral view(s) of the right hip(s). COMPARISON: None. FINDINGS: Bones: There are no osseous abnormalities. SI and hip joints: Right hemiarthroplasty is anatomically aligned without loosening or infection. There is a 2 cm focus of heterotopic ossification in the superior pericapsular region. Mild left hip and bilateral SI degenerative change noted. There is moderate L4-5 and L5-S1 degenerative disc and facet disease Soft tissues: No soft tissue swelling, calcification or mass. IMPRESSION: Right hemiarthroplasty unremarkable. Dictated by: Abel Oneal M.D. on 09/30/2024 at 12:07 Approved by: Abel Oneal M.D. on 09/30/2024 at 12:08
== END ==
PROVIDERS: Family Provider Family Medicine; PCP Family Medicine; Referring Provider Family Medicine; Visit Provider Family Medicine
DX: S62.101A Fracture of unspecified carpal bone, right wrist, initial encounter for closed fracture (principal); S72.001A Fracture of unspecified part of neck of right femur, initial encounter for closed fracture; S52.591G Other fractures of lower end of right radius, subsequent encounter for closed fracture with delayed healing; S52.611S Displaced fracture of right ulna styloid process, sequela; M18.11 Unilateral primary osteoarthritis of first carpometacarpal joint, right hand; M19.031 Primary osteoarthritis, right wrist; M47.816 Spondylosis without myelopathy or radiculopathy, lumbar region; M47.817 Spondylosis without myelopathy or radiculopathy, lumbosacral region; M51.369 Other intervertebral disc degeneration, lumbar region without mention of lumbar back pain or lower extremity pain; M51.379 Other intervertebral disc degeneration, lumbosacral region without mention of lumbar back pain or lower extremity pain; Z96.641 Presence of right artificial hip joint
CPT/HCPCS: 73090; 73110; 73502

== ENCOUNTER → 2024-10-26 14:58 | Outpatient (CLI) | payer MEDICARE, OTHER, SELFPAY ==
--- NOTE | 2024-10-26 15:00 | DI.RAD.S_ITS ---
PROCEDURE: XR DEXA AXIAL SKELETON INDICATIONS: 2 year recheck COMPARISON: [facility], [place], XR DEXA AXIAL SKELETON, 01/24/2022, 15:16. [facility], [place], DEXA AXIAL SKELETON, 05/09/2016, 14:03. FINDINGS: Lumbar Spine: L1, L2, L4. Bone mineral density 0.878 g/cm2, T score -1.4, there is significant interval decrease in bone mineral density -3.4% *. Left Femoral Neck: Bone mineral density 0.640 g/cm2, T score -1.9. Left Hip: Bone mineral density 0.742 g/cm2, T score -1.6, there is significant interval decrease in bone mineral density-8.7%*. Fracture Risk Calculation (when applicable): 10-year fracture risk of a major osteoporotic fracture 19 percent and of a hip fracture 4.4 percent. (T score greater or equal to -1.0 to: NORMAL) (T score from -1.1 to -2.4: OSTEOPENIA) (T score less than or equal to -2.5: OSTEOPOROSIS) IMPRESSION: Osteopenia. There is significant interval decrease in bone mineral density at the lumbar spine and left hip. Follow-up guidelines as follows: Osteoporosis: Consider a repeat DEXA and Vertebral Fracture Assessment (VFA) exam in 2 years or sooner if medically necessary, to reassess this patient's status. Osteopenia: Consider a repeat DEXA in 2-3 years to reassess this patient's status, or if there is a new clinical indication. Normal: Consider a repeat DEXA in 5 years or sooner, or if there is a new clinical indication. All treatment decisions require clinical judgment and consideration of individual patient factors, including patient preferences, comorbidities, previous drug use, risk factors not captured in the FRAX model (e.g., frailty, falls, vitamin D deficiency, increased bone turnover, interval significant decline in bone density ) and possible under- or over-estimation of fracture risk by FRAX. In addition, the NOF Guide recommends that FDA-approved medical therapies be considered in postmenopausal women and men age >= 50 years with a: * Hip or vertebral (clinical or morphometric) fracture * T-score of <=-2.5 at the spine or hip * Ten-year fracture probability by FRAX of >= 3% for hip fracture or >=20% for major osteoporotic fracture. Dictated by: Tariq Figueroa M.D. on 10/27/2024 at 21:44 Approved by: Tariq Figueroa M.D. on 10/27/2024 at 21:48
== END ==
LOC: RAD 15:00
PROVIDERS: Family Provider Family Medicine; PCP Family Medicine; Referring Provider Family Medicine; Visit Provider Family Medicine
DX: M85.89 Other specified disorders of bone density and structure, multiple sites (principal)
CPT/HCPCS: 77080

== ENCOUNTER → 2025-02-09 07:38 | Outpatient (CLI) | payer MEDICARE, OTHER, SELFPAY ==
[2025-02-09 07:58] LABS: Add Manual Diff / Slide Review NO; Hematocrit 33.8 % (36-46); Hemoglobin 11.1 g/dL (12.0-16.0); Lymphocytes Absolute Auto 1500 /uL (1100-4500); Mean Corpuscular HGB Conc 32.8 % (30-36); Mean Corpuscular Hemoglobin 24.8 PG (26-34); Mean Corpuscular Volume 75.6 fL (80-100); Platelet Count 238 X10^3/uL (150-400)
[2025-02-09 08:21] LABS: Alanine Aminotransferase 18 IU/L (<35); Albumin 4.5 g/dL (3.5-5.0); Albumin Globulin Ratio 2.4 (1.0-2.8); Alkaline Phosphatase 128 U/L (38-126); Blood Urea Nitrogen 27 mg/dL (7-17); Calcium 10.0 mg/dL (8.4-10.2); Carbon Dioxide 28 mmol/L (22-32); Chloride 103 mmol/L (98-107); Cholesterol 191 mg/dL (140-199); Estimated Glomerular Filt Rate > 60 mL/min (>60); Globulin 1.9 g/dL (1.7-4.1); Glucose 90 mg/dL (70-99); HDL Cholesterol 85 mg/dL (40-60); HEMOLYSIS < 15 (0-50); Potassium 3.9 mmol/L (3.4-5.1); Sodium 139 mmol/L (137-145); Total Protein 6.4 g/dL (6.3-8.2); Triglycerides 81 mg/dL (35-150)
[2025-02-09 08:48] LABS: TSH w/ Reflex to FT4 3.16 uIU/mL (0.47-4.68)
== END ==
PROVIDERS: PCP Family Medicine; Referring Provider Family Medicine; Visit Provider Family Medicine
DX: E78.2 Mixed hyperlipidemia (principal); E66.9 Obesity, unspecified; I10 Essential (primary) hypertension; S62.101A Fracture of unspecified carpal bone, right wrist, initial encounter for closed fracture; A04.72 Enterocolitis due to Clostridium difficile, not specified as recurrent; S52.501S Unspecified fracture of the lower end of right radius, sequela; Z96.641 Presence of right artificial hip joint
CPT/HCPCS: 36415; 80053; 80061; 84443; 85025